=== PATIENT | male | born 1955 | race Two or more races ===

== ENCOUNTER 2023-06-13 10:14 | Inpatient (IN) | payer OTHER, MEDICAID ==
[~2023-06-13] VITALS: Ht 160 cm; Wt 57.0 kg
[2023-06-13 11:10] LABS: Basophils # (auto) 0 10 ^3/uL (0-0.2); Eosinophils # (auto) 0 10 ^3/uL (0-0.8); Hemoglobin 14.6 g/dL (13.5-17.5); Lymphocytes # (auto) 2.9 10 ^3/uL (0.4-5.4); White Blood Cell 11.2 10^3/uL (4.4-10.8)
[2023-06-13 11:13] LABS: Basophils % (auto) 0.3 % (0.0-2.0); Eosinophils % (auto) 0.4 % (0.0-7.0); Lymphocytes % (auto) 26.1 % (10.0-50.0); Mean Corpuscular Hemoglobin 23.4 pg (28.0-32.0); Mean Corpuscular Hgb Conc. 33.8 g/dL (32.0-36.0); Mean Corpuscular Volume 69.1 fL (80.0-100.0); Monocytes # (auto) 1.3 10 ^3/uL (0-1.3); Monocytes % (auto) 11.5 % (0.0-12.0); Neutrophils # (auto) 6.9 10 ^3/uL (1.6-8.6); Neutrophils % (auto) 61.7 % (37.0-80.0); Nucleated Red Blood Cells % 0.5 %; Red Blood Cells 6.22 10^6/uL (4.5-5.90); Red Cell Distribution Width 17.1 % (11.8-14.3)
[2023-06-13 11:26] LABS: Alanine Aminotransferase 43 U/L (7-40); Albumin 4.2 g/dL (3.2-4.8); Alkaline Phosphatase 45 U/L (46-116); Anion Gap 8 (5-15); Aspartate Aminotransferase 62 U/L (13-40); BUN/Creatinine Ratio 15.1 (10.0-20.0); Blood Urea Nitrogen 16 mg/dL (9-23); Carbon Dioxide 28 mmol/L (20-30); Chloride 101 mmol/L (98-107); Glucose 146 mg/dL (74-106); Potassium 3.6 mmol/L (3.5-5.1); Sodium 137 mmol/L (136-145)
[2023-06-13 11:27] LABS: Bilirubin, Total 1.2 mg/dL (0.2-1.0); Total Protein 7.5 g/dL (5.7-8.2)
[2023-06-13] MEDS ORDERED: cefTRIAXone 1GM/50ML D5W 50 ML IV ONE (12:45)
[2023-06-13] MEDS ORDERED: SODIUM CHLORIDE 0.9% 1,000 ML IV ONE (12:45)
[2023-06-13] MEDS ORDERED: metroNIDAZOLE 500MG/100ML 100 ML IV ONE (12:45)
[2023-06-13 12:47] LABS: Urine Bacteria NONE SEEN /hpf (None Seen); Urine Blood Negative /uL (Negative); Urine Clarity Clear (Clear); Urine Color Yellow (Yellow); Urine Mucus FEW (None Seen); Urine Protein, UAD Negative (Negative); Urine Urobilinogen Normal (Negative); Urine WBC <1 /hpf (0 - 3); Urine pH 5.5 (5.0-8.0)
[2023-06-13] MEDS ORDERED: ACETAMINOPHEN 325 MG TAB PO PRN (13:15)
[2023-06-13] MEDS ORDERED: PANTOPRAZOLE 40 MG/10 ML VIAL INJ IV ONE ×2 (13:15→21:15)
[2023-06-13] MEDS ORDERED: KETOROLAC TROMETH 30 MG/ML 1ML VIAL IV ONE (13:15)
[2023-06-13] MEDS ORDERED: SODIUM CHLORIDE 0.9% 2,000 ML IV ONE (13:15)
[2023-06-13] MEDS ORDERED: AMOX500C2 PO (13:18)
[2023-06-13] MEDS ORDERED: ATOR20TA50 PO (13:18)
[2023-06-13] MEDS ORDERED: ALLO100T PO (13:18)
[2023-06-13] MEDS ORDERED: HYDR25TA5 PO (13:18)
[2023-06-13] MEDS ORDERED: ACET-6 PO (13:18)
[2023-06-13] MEDS ORDERED: CETI-120 PO (13:18)
[2023-06-13] MEDS ORDERED: ZINC220T6 PO (13:18)
[2023-06-13] MEDS ORDERED: hydrALAZINE HCL 20 MG/ML VL IV PRN (13:30)
[2023-06-13] MEDS: SODIUM CHLORIDE 0.9% 1,000 ML IV SCH ×2 (13:38→15:41)
[2023-06-13 14:00] VITALS: PULSE 62; RESP 16; O2SAT 98
[2023-06-13 14:06] LABS: Lactic Acid w/Reflex 4.7 mmol/L (0.4-2.0)
[2023-06-13] MEDS ORDERED: cloNIDine HCL 0.1 MG TAB PO ONE (14:45)
[2023-06-13 21:14] VITALS: PULSE 52; RESP 19; O2SAT 97
[2023-06-13 22:40] VITALS: BP 150/71; PULSE 56; PULSE 59; RESP 18; RESP 20; O2SAT 98; O2SAT 99
[2023-06-13] MEDS: KETOROLAC TROMETH 30 MG/ML 1ML VIAL IV PRN (23:09)
[2023-06-13] MEDS: metroNIDAZOLE 500MG/100ML 100 ML IV SCH (23:09)
[2023-06-14 05:00] VITALS: BP 139/77; PULSE 55; RESP 18; TEMP 98.2; O2SAT 98
[2023-06-14] MEDS: metroNIDAZOLE 500MG/100ML 100 ML IV SCH ×3 (06:21→21:43)
[2023-06-14] MEDS: SODIUM CHLORIDE 0.9% 1,000 ML IV SCH ×3 (06:21→21:44)
[2023-06-14 07:09] LABS: Basophils # (auto) 0 10 ^3/uL (0-0.2); Basophils % (auto) 0.4 % (0.0-2.0); Eosinophils # (auto) 0.3 10 ^3/uL (0-0.8); Eosinophils % (auto) 2.6 % (0.0-7.0); Hemoglobin 12.9 g/dL (13.5-17.5); Lymphocytes # (auto) 2.7 10 ^3/uL (0.4-5.4); Mean Corpuscular Volume 69.5 fL (80.0-100.0); Monocytes % (auto) 10.3 % (0.0-12.0); Red Cell Distribution Width 16.8 % (11.8-14.3)
[2023-06-14 07:10] LABS: Hematocrit 37.9 % (41.0-53.0); Lymphocytes % (auto) 26.9 % (10.0-50.0); Mean Corpuscular Hemoglobin 23.6 pg (28.0-32.0); Neutrophils % (auto) 59.8 % (37.0-80.0); Red Blood Cells 5.46 10^6/uL (4.5-5.90)
[2023-06-14 07:20] LABS: Nucleated Red Blood Cells % 4.1 %
[2023-06-14 07:43] LABS: Alanine Aminotransferase 40 U/L (7-40); Albumin 3.6 g/dL (3.2-4.8); Alkaline Phosphatase 37 U/L (46-116); Anion Gap 8 (5-15); Aspartate Aminotransferase 53 U/L (13-40); BUN/Creatinine Ratio 14.7 (10.0-20.0); Blood Urea Nitrogen 14 mg/dL (9-23); Calcium 8.1 mg/dL (8.5-10.1); Carbon Dioxide 28 mmol/L (20-30); Chloride 102 mmol/L (98-107); Glucose 93 mg/dL (74-106); Potassium 3.5 mmol/L (3.5-5.1); Sodium 138 mmol/L (136-145)
[2023-06-14 07:44] LABS: Bilirubin, Total 2.2 mg/dL (0.2-1.0); Total Protein 6.2 g/dL (5.7-8.2)
[2023-06-14 09:00] VITALS: BP 140/84; PULSE 58; RESP 20; TEMP 97.7; O2SAT 98
[2023-06-14] MEDS ORDERED: cefTRIAXone 1GM/50ML D5W 50 ML IV SCH (09:00)
[2023-06-14] MEDS: PANTOPRAZOLE 40 MG/10 ML VIAL INJ IV SCH (09:20)
[2023-06-14] MEDS: ENOXAPARIN SOD 40 MG/0.4 ML SYRINGE SC SCH (09:21)
[2023-06-14 09:38] LABS: Hepatitis B Surface Antigen Negative (Negative)
[2023-06-14] MEDS ORDERED: ALLOPURINOL 100 MG TAB PO SCH (10:00)
[2023-06-14] MEDS ORDERED: ATORVASTATIN 20 MG TAB PO SCH (10:00)
[2023-06-14] MEDS ORDERED: hydroCHLOROthiazide 25 MG TAB PO SCH (10:00)
[2023-06-14] MEDS ORDERED: ZINC SULFATE 220mg CAP or TAB PO SCH (10:00)
[2023-06-14 10:01] LABS: Hepatitis C Antibody Negative (Negative)
[2023-06-14 12:53] VITALS: BP 139/78; PULSE 57; RESP 21; TEMP 98; O2SAT 98
[2023-06-14 17:23] VITALS: BP 148/74; PULSE 53; RESP 20; TEMP 98; O2SAT 98
[2023-06-14 20:00] VITALS: PULSE 60; O2SAT 97
[2023-06-14] MEDS: KETOROLAC TROMETH 30 MG/ML 1ML VIAL IV PRN ×2 (20:43→21:44)
[2023-06-14 22:00] VITALS: BP 139/78; PULSE 60; RESP 18; TEMP 98.4; O2SAT 97
[2023-06-15] MEDS: KETOROLAC TROMETH 30 MG/ML 1ML VIAL IV PRN ×2 (04:22→10:29)
[2023-06-15 05:00] VITALS: BP 145/73; PULSE 66; RESP 20; TEMP 98.2; O2SAT 99
[2023-06-15 06:27] LABS: Alanine Aminotransferase 27 U/L (7-40); Alkaline Phosphatase 38 U/L (46-116); Anion Gap 10 (5-15); Blood Urea Nitrogen 11 mg/dL (9-23); Calcium 8.3 mg/dL (8.5-10.1); Carbon Dioxide 24 mmol/L (20-30); Chloride 102 mmol/L (98-107); Glucose 75 mg/dL (74-106); LDL Cholesterol 45 mg/dL (< 100); Potassium 3.7 mmol/L (3.5-5.1); Sodium 136 mmol/L (136-145); Triglycerides 181 mg/dL (< 150)
[2023-06-15 06:28] LABS: Albumin 3.6 g/dL (3.2-4.8); Aspartate Aminotransferase 40 U/L (13-40); Bilirubin, Total 1.7 mg/dL (0.2-1.0); Cholesterol 98 mg/dL (< 200); HDL Cholesterol 23 mg/dL (40-59); Total Protein 6.3 g/dL (5.7-8.2)
[2023-06-15 06:29] LABS: Hemoglobin 11.8 g/dL (13.5-17.5); Lymphocytes # (auto) 2.2 10 ^3/uL (0.4-5.4); Red Cell Distribution Width 16.4 % (11.8-14.3); White Blood Cell 6.8 10^3/uL (4.4-10.8)
[2023-06-15 06:31] LABS: Basophils # (auto) 0.1 10 ^3/uL (0-0.2); Basophils % (auto) 0.9 % (0.0-2.0); Eosinophils # (auto) 0.5 10 ^3/uL (0-0.8); Eosinophils % (auto) 7.9 % (0.0-7.0); Hematocrit 35.5 % (41.0-53.0); Lymphocytes % (auto) 32.5 % (10.0-50.0); Mean Corpuscular Hemoglobin 23.4 pg (28.0-32.0); Mean Corpuscular Hgb Conc. 33.3 g/dL (32.0-36.0); Mean Corpuscular Volume 70.3 fL (80.0-100.0); Monocytes # (auto) 0.8 10 ^3/uL (0-1.3); Neutrophils # (auto) 3.2 10 ^3/uL (1.6-8.6); Neutrophils % (auto) 46.7 % (37.0-80.0); Nucleated Red Blood Cells % 0.6 %; Red Blood Cells 5.05 10^6/uL (4.5-5.90)
[2023-06-15 06:44] LABS: Magnesium 1.5 mg/dL (1.6-2.6)
[2023-06-15 06:52] LABS: Lipase 784 U/L (12-53)
[2023-06-15] MEDS: metroNIDAZOLE 500MG/100ML 100 ML IV SCH (06:53)
[2023-06-15] MEDS: SODIUM CHLORIDE 0.9% 1,000 ML IV SCH ×3 (06:54→22:05)
[2023-06-15 09:00] VITALS: BP 153/59; PULSE 57; RESP 17; TEMP 97.9; O2SAT 97
[2023-06-15] MEDS ORDERED: levoFLOXacin 500MG 100 ML IV SCH (10:00)
[2023-06-15] MEDS: PANTOPRAZOLE 40 MG/10 ML VIAL INJ IV SCH (10:28)
[2023-06-15] MEDS: MAGNESIUM SULFATE 1GM/100ML 100 ML IV SCH ×2 (10:29→12:00)
[2023-06-15] MEDS: ENOXAPARIN SOD 40 MG/0.4 ML SYRINGE SC SCH (10:29)
[2023-06-15 13:00] VITALS: BP 140/79; PULSE 57; RESP 18; TEMP 98.3; O2SAT 99
[2023-06-15] MEDS: FOLIC ACID 1 MG, MULTIPLE VITAMIN 10 ML, MAGNESIUM SULF SDV 50% 8 MEQ, THIAMINE INJ 100... INJ SCH ×5 (13:58)
[2023-06-15 17:00] VITALS: BP 150/80; PULSE 54; RESP 19; TEMP 98.2; O2SAT 99
[2023-06-15 20:00] VITALS: PULSE 52; RESP 18; O2SAT 98
[2023-06-15 22:00] VITALS: BP 141/73; PULSE 52; RESP 18; TEMP 98.1; O2SAT 98
[2023-06-16 05:00] VITALS: BP 132/75; PULSE 51; RESP 18; TEMP 98; O2SAT 98
[2023-06-16 09:00] VITALS: BP 154/102; PULSE 67; RESP 16; TEMP 98; O2SAT 98
[2023-06-16 09:10] LABS: Eosinophils # (auto) 0.5 10 ^3/uL (0-0.8); Lymphocytes % (auto) 35.2 % (10.0-50.0); Neutrophils % (auto) 49.1 % (37.0-80.0); Red Cell Distribution Width 16.6 % (11.8-14.3)
[2023-06-16 09:11] LABS: Basophils # (auto) 0.1 10 ^3/uL (0-0.2); Basophils % (auto) 0.8 % (0.0-2.0); Eosinophils % (auto) 6.9 % (0.0-7.0); Hematocrit 38.6 % (41.0-53.0); Lymphocytes # (auto) 2.4 10 ^3/uL (0.4-5.4); Mean Corpuscular Hemoglobin 23.7 pg (28.0-32.0); Mean Corpuscular Hgb Conc. 33.7 g/dL (32.0-36.0); Mean Corpuscular Volume 70.3 fL (80.0-100.0); Monocytes # (auto) 0.5 10 ^3/uL (0-1.3); Neutrophils # (auto) 3.4 10 ^3/uL (1.6-8.6); Nucleated Red Blood Cells % 0.4 %; Red Blood Cells 5.49 10^6/uL (4.5-5.90); White Blood Cell 6.8 10^3/uL (4.4-10.8)
[2023-06-16 09:33] LABS: Alanine Aminotransferase 33 U/L (7-40); Albumin 4.2 g/dL (3.2-4.8); Alkaline Phosphatase 51 U/L (46-116); Anion Gap 11 (5-15); Aspartate Aminotransferase 56 U/L (13-40); BUN/Creatinine Ratio 10.4 (10.0-20.0); Blood Urea Nitrogen 10 mg/dL (9-23); Calcium 8.7 mg/dL (8.7-10.4); Carbon Dioxide 21 mmol/L (20-30); Chloride 102 mmol/L (98-107); Glucose 71 mg/dL (74-106); Magnesium 1.9 mg/dL (1.6-2.6); Potassium 3.5 mmol/L (3.5-5.1); Sodium 134 mmol/L (136-145)
[2023-06-16 09:34] LABS: Bilirubin, Total 1.3 mg/dL (0.2-1.0); Total Protein 7.4 g/dL (5.7-8.2)
[2023-06-16 09:45] LABS: Lipase 891 U/L (12-53)
[2023-06-16] MEDS: ENOXAPARIN SOD 40 MG/0.4 ML SYRINGE SC SCH (11:11)
[2023-06-16] MEDS: SODIUM CHLORIDE 0.9% 1,000 ML IV SCH (11:25)
[2023-06-16] MEDS: FOLIC ACID 1 MG, MULTIPLE VITAMIN 10 ML, MAGNESIUM SULF SDV 50% 8 MEQ, THIAMINE INJ 100... INJ SCH ×5 (12:54)
[2023-06-16 13:00] VITALS: BP 145/71; PULSE 60; RESP 16; TEMP 98.2; O2SAT 93
[2023-06-16 17:03] VITALS: BP 145/88; PULSE 56; RESP 14; TEMP 98.4; O2SAT 99
[2023-06-16 20:00] VITALS: BP 147/69; PULSE 60; RESP 18; TEMP 97.9; O2SAT 94
[2023-06-16 22:00] VITALS: BP 147/69; PULSE 56; RESP 18; TEMP 97.9; O2SAT 94
[2023-06-17] MEDS: SODIUM CHLORIDE 0.9% 1,000 ML IV SCH (00:57)
[2023-06-17 05:00] VITALS: BP 142/70; PULSE 54; RESP 18; TEMP 97.9; O2SAT 95
[2023-06-17 06:47] LABS: Alanine Aminotransferase 33 U/L (7-40); Albumin 3.8 g/dL (3.2-4.8); Alkaline Phosphatase 47 U/L (46-116); Anion Gap 11 (5-15); Aspartate Aminotransferase 56 U/L (13-40); Calcium 8.6 mg/dL (8.7-10.4); Carbon Dioxide 19 mmol/L (20-30); Chloride 105 mmol/L (98-107); Glucose 56 mg/dL (74-106); Lipase > 700 U/L (12-53); Potassium 4.3 mmol/L (3.5-5.1); Sodium 135 mmol/L (136-145)
[2023-06-17 06:48] LABS: BUN/Creatinine Ratio 10.8 (10.0-20.0); Blood Urea Nitrogen 10 mg/dL (9-23); Magnesium 1.8 mg/dL (1.6-2.6)
[2023-06-17 06:50] LABS: Total Protein 6.6 g/dL (5.7-8.2)
[2023-06-17 09:00] VITALS: BP 142/78; PULSE 55; RESP 16; TEMP 97.6; O2SAT 99
[2023-06-17] MEDS: ENOXAPARIN SOD 40 MG/0.4 ML SYRINGE SC SCH (09:44)
[2023-06-17] MEDS: FOLIC ACID 1 MG, MULTIPLE VITAMIN 10 ML, MAGNESIUM SULF SDV 50% 8 MEQ, THIAMINE INJ 100... INJ SCH ×5 (12:00)
== END 2023-06-17 13:30 | disposition home or self-care (01) | DRG 440 ==
LOC: ER 10:14 → OVERFLOW 13:15 → CENTRAL 22:18
PROVIDERS: ADMIT Nurse Practitioner Family; ATTEND Internal Medicine Geriatric Medicine
DX: K85.20 Alcohol induced acute pancreatitis without necrosis or infection (principal); R74.01 Elevation of levels of liver transaminase levels; I10 Essential (primary) hypertension; R73.9 Hyperglycemia, unspecified; E78.5 Hyperlipidemia, unspecified; M10.9 Gout, unspecified; E83.42 Hypomagnesemia; K59.00 Constipation, unspecified; F10.20 Alcohol dependence, uncomplicated; Y90.9 Presence of alcohol in blood, level not specified
CPT/HCPCS: 36415; 74176; 76705; 80053; 80061; 81001; 83036; 83605; 83690; 83735; 84484; 85025; 86803; 87040; 87340; 96365; 96368; 96375; C9113; G0378; J0696; J1885; J1956; J3490

== ENCOUNTER 2024-02-25 13:02 | Emergency (ER) | payer OTHER, MEDICAID ==
[~2024-02-25] VITALS: Ht 160 cm; Wt 61.6 kg
[~2024-02-25 13:02] MED LIST: ACET-6 PO; ALLO100T PO; ATOR20TA50 PO; CETI-120 PO; HYDR25TA5 PO; ZINC220T6 PO
[2024-02-25] MEDS ORDERED: cefTRIAXone W LIDOCAINE 1 GM IM IM ONE (13:45)
[2024-02-25 14:19] LABS: Eosinophils % (auto) 2.5 % (0.0-7.0); Hemoglobin 12.1 g/dL (13.5-17.5); Monocytes # (auto) 1.1 10 ^3/uL (0-1.3)
[2024-02-25 14:21] LABS: Basophils # (auto) 0 10 ^3/uL (0-0.2); Basophils % (auto) 0.3 % (0.0-2.0); Eosinophils # (auto) 0.4 10 ^3/uL (0-0.8); Hematocrit 36.7 % (41.0-53.0); Lymphocytes # (auto) 2.3 10 ^3/uL (0.4-5.4); Lymphocytes % (auto) 16.2 % (10.0-50.0); Mean Corpuscular Hemoglobin 21.8 pg (28.0-32.0); Mean Corpuscular Hgb Conc. 33.1 g/dL (32.0-36.0); Mean Corpuscular Volume 65.8 fL (80.0-100.0); Monocytes % (auto) 7.9 % (0.0-12.0); Neutrophils # (auto) 10.3 10 ^3/uL (1.6-8.6); Neutrophils % (auto) 73.1 % (37.0-80.0); Nucleated Red Blood Cells % 0.2 %; Red Blood Cells 5.58 10^6/uL (4.5-5.90); Red Cell Distribution Width 15.7 % (11.8-14.3)
[2024-02-25 14:22] VITALS: PULSE 72; RESP 16; O2SAT 96
[2024-02-25 14:39] LABS: Alanine Aminotransferase 48 U/L (7-40); Albumin 4.5 g/dL (3.2-4.8); Alkaline Phosphatase 56 U/L (46-116); Amylase 365 U/L (30-118); Anion Gap 7 (5-15); Aspartate Aminotransferase 33 U/L (13-40); BUN/Creatinine Ratio 9.6 (10.0-20.0); Bilirubin, Total 1.7 mg/dL (0.2-1.0); Blood Urea Nitrogen 11 mg/dL (9-23); Calcium 9.9 mg/dL (8.7-10.4); Carbon Dioxide 25 mmol/L (20-30); Chloride 106 mmol/L (98-107); Glucose 113 mg/dL (74-106); Lipase 25 U/L (12-53); Potassium 4.7 mmol/L (3.5-5.1); Sodium 138 mmol/L (136-145); Total Protein 7.7 g/dL (5.7-8.2)
[2024-02-25] MEDS: IOHEXOL 300 MG/ML 100ML BOTTLE IJ ONE (15:22)
[2024-02-25] MEDS: cefTRIAXone 1GM/50ML D5W 50 ML IV ONE (15:23)
[2024-02-25] MEDS: levoFLOXacin 500MG 100 ML IV ONE (17:11)
[2024-02-25] MEDS: ONDANSETRON HCL 4 MG/2 ML VIAL IV ONE ×2 (17:26→19:13)
[2024-02-25] MEDS: MORPHINE SULFATE INJ 2 MG/ml SYRG IV ONE (17:27)
[2024-02-25 18:20] VITALS: PULSE 67; RESP 16; O2SAT 98
[2024-02-25] MEDS: CLINDAMYCIN 900MG IV 50 ML IV ONE (19:01)
[2024-02-25] MEDS: HYDROmorphone HCL 2 MG/ML VL/or syr IV ONE (19:09)
[2024-02-25 21:37] VITALS: BP 152/82; PULSE 63; RESP 19; TEMP 98.4; O2SAT 92
== END 2024-02-25 21:50 | disposition short-term general hospital (02) ==
LOC: ER 13:02
DX: D49.0 Neoplasm of unspecified behavior of digestive system (principal); L02.91 Cutaneous abscess, unspecified; I10 Essential (primary) hypertension
CPT/HCPCS: 36415; 70491; 80053; 82150; 83690; 85025; 96365; 96367; 96375; 99285; J0696; J1170; J1956; J2270; J2405; J3490; Q9967

== ENCOUNTER 2025-07-01 14:28 | Inpatient (IN) | payer MEDICARE, OTHER ==
[~2025-07-01] VITALS: Ht 167.6 cm; Wt 45.9 kg
[2025-07-01] MEDS: ONDANSETRON HCL 4 MG/2 ML VIAL ONE (15:59)
[2025-07-01] MEDS: fentaNYL CITRATE 100 MCG/2 ML VL ONE (16:00)
[2025-07-01] MEDS: ONDANSETRON HCL 4 MG/2 ML VIAL IV ONE (16:01)
[2025-07-01] MEDS: fentaNYL CITRATE 100 MCG/2 ML VL IV ONE (16:02)
[2025-07-01] MEDS: SODIUM CHLORIDE 0.9% 1,000 ML IV ONE (16:03)
[2025-07-01 16:13] LABS: Hematocrit 38.0 % (41.0-53.0); Mean Corpuscular Volume 63.5 fL (80.0-100.0)
[2025-07-01 16:14] LABS: Hemoglobin 12.4 g/dL (13.5-17.5); Mean Corpuscular Hemoglobin 20.8 pg (28.0-32.0); Nucleated Red Blood Cells % 0.3 %
[2025-07-01 16:14] LABS: Urine Protein, UAD 1+ (Negative)
[2025-07-01 16:27] LABS: Alanine Aminotransferase 32 U/L (7-40); Albumin 4.7 g/dL (3.2-4.8); Alkaline Phosphatase 101 U/L (46-116); Anion Gap 11 (5-15); BUN/Creatinine Ratio 8.8 (10.0-20.0); Calcium 10.2 mg/dL (8.7-10.4); Carbon Dioxide 27 mmol/L (20-31); Chloride 104 mmol/L (98-107); Potassium 4.4 mmol/L (3.5-5.1); Sodium 142 mmol/L (136-145)
[2025-07-01 16:28] LABS: Bilirubin, Total 0.6 mg/dL (0.2-1.0)
[2025-07-01 16:39] LABS: Blood Urea Nitrogen 9 mg/dL (9-23); Glucose 167 mg/dL (74-106); Lipase 86 U/L (12-53); Total Protein 8.3 g/dL (5.7-8.2)
--- NOTE | 2025-07-01 17:09 | ED.PDOC ---
GI ASSESSMENT HPI Comments 70 y/o M, presents to the ED for CC of abdominal pain. Patient states, he has been experiencing diffuse abdominal pain with associated diarrhea [id number]. Patient reports, that he recently traveled to [facility] and just now returned to the [facility]. Patient denies nausea, vomiting, or fever. Chief Complaint: Abdominal Pain Time Seen by MD: 16:10 Reviewed Notes: Nurses Notes, Medications, Allergies Allergies: Coded Allergies: NO KNOWN ALLERGIES (Unverified , 07/01/25) Information Source: Patient, Relative (Child) Mode of Arrival: Ambulatory Timing: Months Duration: Since onset Prehospital treatment: None Stool: Watery Severity: Moderate Recent: Travel Recent Hx of: None Pain Location: Diffuse Modifying Factors: Nothing Associated sign and symptoms: Diarrhea, Abdominal Pain Past Medical History PAST MEDICAL HISTORY: Denies Surgical History: Denies all surgeries Family History Family History: Unknown Social History Smoker: Non-Smoker Alcohol: Denies ETOH Use Drugs: Denies Drug Use Lives In: Home Constitutional: denies: chills, diaphoresis, fatigue, fever, malaise, sweats, weakness, others EENTM: denies: blurred vision, double vision, ear bleeding, ear discharge, ear drainage, ear pain, ear ringing, eye pain, eye redness, hearing loss, mouth pain, mouth swelling, nasal discharge, nose bleeding, nose congestion, nose pain, photophobia, tearing, throat pain, throat swelling, voice changes, others Respiratory: denies: cough, hemoptysis, orthopnea, SOB at rest, shortness of breath, SOB with excertion, stridor, wheezing, others Cardiovascular: denies: chest pain, dizzy spells, diaphoresis, Dyspnea on exertion, edema, irregular heart beat, left arm pain, lightheadedness, palpitations, PND, syncope, others Gastrointestinal: reports: abdominal pain, diarrhea; denies: abdomen distended, blood streaked bowels, constipated, dysphagia, difficulty swallowing, hematemesis, melena, nausea, poor appetite, poor fluid intake, rectal bleeding, rectal pain, vomiting, others Genitourinary: denies: burning, dysuria, flank pain, frequency, hematuria, incontinence, penile discharge, penile sore, pain, testicle pain, testicle swelling, urgency, others Neurological: denies: dizziness, fainting, headache, left sided numbness, left sided weakness, numbness, paresthesia, pre-existing deficit, right sided numbness, right sided weakness, seizure, speech problems, tingling, tremors, weakness, others Musculoskeletal: denies: back pain, gout, joint pain, joint swelling, muscle pain, muscle stiffness, neck pain, others Integumetry: denies: bruises, change in color, change in hair/nails, dryness, laceration, lesions, lumps, rash, wounds, others Allergic/Immunocompromised: denies: Difficulty Healing, Frequent Infections, Hives, Itching, others Hematologic/Lymphatic: denies: anemia, blood clots, easy bleeding, easy bruising, swollen glands, others Endocrine: denies: excessive hunger, excessive sweating, excessive thirst, excessive urination, flushing, intolerance to cold, intolerance to heat, unexplained weight gain, unexplained weight loss, others Psychiatric: denies: anxiety, bipolar disorder, depression, hopeless, panic disorder, schizophrenia, sleepless, suicidal, others All Other Systems: Reviewed and Negative Physical Exam General Appearance: No Apparent Distress, Normal HEENT: Normal ENT Inspection, Pharynx Normal Neck: Full Range of Motion, Non-Tender, Normal, Normal Inspection Respiratory: Chest Non-Tender, Lungs Clear, No Accessory Muscle Use, No Respiratory Distress, Normal Breath Sounds Cardiovascular: No Edema, No Murmur, No Gallop, Normal Peripheral Pulses, Regular Rate/Rhythm Breast Exam: Deferred Gastrointestinal: Diffuse, No Organomegaly, No Pulsatile Mass, Normal Bowel Sounds, Soft, Tenderness Genitalia: Deferred Pelvic: Deferred Rectal: Deferred Extremities: No calf tenderness, Normal capillary refill, Normal inspection, Normal range of motion, Non-tender, No pedal edema Musculoskeletal : Apperance: Normal Neurologic: Alert, chief technologist II-XII nml as Tested, No Motor Deficits, Normal Affect, Normal Mood, No Sensory Deficits Cerebellar Function: Normal Reflexes: Normal Skin: Dry, Normal Color, Warm Lymphatic: No Adenopathy Was a procedure done? Was a procedure done?: No GI differential Dx Differential Diagnosis: Cholangitis, Gastritis/PUD, Gastroenteritis, Food Poisoning, Bacterial, Viral X-Ray, Labs, Meds, VS Vital Signs Date Time Temp Pulse Resp B/P (MAP) Pulse Ox O2 Delivery O2 Flow Rate FiO2 07/01/25 16:02 135/87 07/01/25 15:12 Room Air* 0 21 07/01/25 15:10 97.5 70 16 117/79 (92) 95 97.5 07/01/25 14:30 97.7 88 18 120/84 99 97.7 Lab Test 07/01/25 16:02 07/01/25 15:45 Range/Units White Blood Count 9.8 4.4-10.8 10^3/uL Red Blood Count 5.98 H 4.5-5.90 10^6/uL Hemoglobin 12.4 L 13.5-17.5 g/dL Hematocrit 38.0 L 41.0-53.0 % Mean Corpuscular Volume 63.5 L 80.0-100.0 fL Mean Corpuscular Hemoglobin 20.8 L 28.0-32.0 pg Mean Corpuscular Hemoglobin Concent 32.8 32.0-36.0 g/dL Red Cell Distribution Width 17.2 H 11.8-14.3 % Platelet Count 254 140-450 10^3/uL Mean Platelet Volume 8.5 6.9-10.8 fL Neutrophils (%) (Auto) 69.1 37.0-80.0 % Lymphocytes (%) (Auto) 20.4 10.0-50.0 % Monocytes (%) (Auto) 5.4 0.0-12.0 % Eosinophils (%) (Auto) 4.7 0.0-7.0 % Basophils (%) (Auto) 0.4 0.0-2.0 % Neutrophils # (Auto) 6.8 1.6-8.6 10 ^3/uL Lymphocytes # (Auto) 2.0 0.4-5.4 10 ^3/uL Monocytes # (Auto) 0.5 0-1.3 10 ^3/uL Eosinophils # (Auto) 0.5 0-0.8 10 ^3/uL Basophils # (Auto) 0 0-0.2 10 ^3/uL Nucleated Red Blood Cells 0.3 % Sodium Level 142 136-145 mmol/L Potassium Level 4.4 3.5-5.1 mmol/L Chloride Level 104 98-107 mmol/L Carbon Dioxide Level 27 20-31 mmol/L Anion Gap 11 5-15 Blood Urea Nitrogen 9 9-23 mg/dL Creatinine 1.02 0.700-1.30 mg/dL Glomerular Filtration Rate Calc 80 >90 mL/min BUN/Creatinine Ratio 8.8 L 10.0-20.0 Serum Glucose 167 H 74-106 mg/dL Calcium Level 10.2 8.7-10.4 mg/dL Total Bilirubin 0.6 0.2-1.0 mg/dL Aspartate Amino Transferase (AST) 51 H 13-40 U/L Alanine Aminotransferase (ALT) 32 7-40 U/L Alkaline Phosphatase 101 46-116 U/L Total Protein 8.3 H 5.7-8.2 g/dL Albumin 4.7 3.2-4.8 g/dL Lipase 86 H 12-53 U/L Urine Color Dark-yellow Yellow Urine Clarity Turbid H Clear Urine pH 6.0 5.0-9.0 Urine Specific [place] 1.037 H 1.001-1.035 Urine Protein 1+ H Negative Urine Ketones Trace Negative Urine Blood Negative Negative /uL Urine Nitrite Negative Negative Urine Bilirubin 1+ Negative Urine Urobilinogen 3 H Negative mg/dL Urine Leukocyte Esterase Negative Negative /uL Urine RBC 2 0 - 3 /hpf Urine Microscopic WBC 3 0-3 /HPF Urine Squamous Epithelial Cells Few <5 /hpf Urine Bacteria None seen None Seen /hpf Urine Hyaline Casts Many 0 - 2 /lpf Urine Mucus Moderate None Seen Urine Glucose Trace Normal mg/dL Current Medications Medications (Trade) Dose Ordered Sig/Valery Route Start Time Stop Time Status Last Admin Ondansetron HCl (Zofran) 4 mg ONCE ONCE IV 07/01/25 15:45 07/01/25 15:47 DC 07/01/25 16:01 Fentanyl Citrate 12.5 mcg ONCE ONCE IV 07/01/25 15:45 07/01/25 15:47 DC 07/01/25 16:02 Sodium Chloride 1,000 ml @ 100 mls/hr Q10H ONCE IV 07/01/25 15:45 07/02/25 01:44 07/01/25 16:[address] [address] Ph: [phone] DIAGNOSTIC IMAGING Diagnostic Imaging Report : [id number] Signed PATIENT: GERTRUDE SLADE ACCT: [id number] UNIT: [id number] : 1955 LOC: ER ROOM / BED: / AGE / SEX: 70 / M ADM STATUS: REG ER SERVICE [id number] ORDERING PHYSICIAN: ALON HER MD PROCEDURE(s): ABPL - CT AB PEL WO CON-NO ORAL OR IV REASON: PAIN ORDER NUMBER(s): [id number], ACCESSION NUMBER(s): [id number] Exam: CT CT AB PEL WO CON-NO ORAL OR IV History: PAIN Comparison Study: CT CT AB PEL WO CON-NO ORAL OR IV on DOS: 06/13/23 Technique: Multidetector spiral CT of the abdomen was performed from lung bases to pubic symphysis. Imaging was performed without IV contrast. Axial, coronal and sagittal multiplanar reformats were obtained from the axial data set by the technologist. Radiation Dose : 1. Abdomen/Pelvis: CTDIvol 5.07 mGy, DLP 277.46 mGy*cm. Findings: Evaluation of solid organs is limited due to lack of intravenous contrast use. Lung Bases: No acute or significant lung base finding. Normal heart size. No pleural or pericardial effusion. Liver: The liver is normal in size. No focal lesions. Gallbladder and Biliary Tree: Unremarkable Spleen: Unremarkable Pancreas: Prominence of the pancreas with adjacent fat stranding and phlegmon, compatible with acute pancreatitis. Large multiloculated fluid collection is seen adjacent to the pancreatic tail measuring up to 6.6 cm. Adrenal Glands: Unremarkable Kidneys: Kidneys are grossly normal without calculi or hydronephrosis. Bladder: Grossly unremarkable for degree of distention. Bowel: The stomach is grossly normal in appearance. Small bowel and colon are normal in caliber and distribution. The appendix is not visualized; however, no secondary findings of acute appendicitis identified. Ascites: Small volume abdominopelvic ascites. Lymphadenopathy: No mesenteric, retroperitoneal or periportal lymphadenopathy. Abdominal Wall and Mesentery: Unremarkable. Vasculature: The visualized abdominal aorta is normal in size and caliber. Evaluation of abdominal and pelvic vessels is limited due to lack of intravenous contrast. Pelvic Organs: Unremarkable Musculoskeletal: No aggressive focal bony lesions, acute fractures or dislocation. IMPRESSION: 1. Findings are compatible with acute pancreatitis with large multiloculated fluid collection adjacent to the pancreatic tail measuring up to 6.6 cm. Consider contrast-enhanced abdominal CT for further evaluation. 2. Small volume abdominopelvic ascites. Radiation optimization: All CT scans at this facility use at least one of these dose optimization techniques: automated exposure control mA and/or kV adjustment per patient size (includes targeted exams where dose is matched to clinical indication) or iterative reconstruction. ATED BY: PENNIE WARD MD DICTATED DATE/TIME: 07/01/251711 SIGNED BY: PENNIE WARD MD SIGNED DATE/TIME: 07/01/251711 CC: Time of 1ST Reevaluation: 16:40 Reevaluation 1ST: Unchanged Patient Education/Counseling: Diagnosis, Treatment Family Education/Counseling: Diagnosis, Treatment Comments This is a patient who drinks alcohol and smokes. He presents with abdominal pain. He has a acute pancreatitis. He will be admitted to the hospital for further treatment. Patient also has evidence of ascites and possibly a pancreatic cyst or pseudocyst. However he is hemodynamically stable he is not septic. SEPSIS Sepsis Screen Date sepsis recognized/suspect: Jul 01, 2025 Time Sepsis recognized/suspect: 1430 Recent Procedure: No On Antibiotic Therapy: No Respiratory Rate >20: No Heart Rate >90: No Temp<36 C (96.8 F) or >38.3 C: No SBP <90 or MAP <65 mmHG: No New Acute Mental Status Change: No Is the patient on CPAP, BIPAP,: No Physician Orders Ct Ab Pel Wo Con-No Oral Or Iv (07/01/25 15:45) Sodium Chloride 0.9% (07/01/25 15:45) Vital Signs Date Time Temp Pulse Resp B/P (MAP) Pulse Ox O2 Delivery O2 Flow Rate FiO2 07/01/25 16:02 135/87 07/01/25 15:12 Room Air* 0 21 07/01/25 15:10 97.5 70 16 117/79 (92) 95 97.5 07/01/25 14:30 97.7 88 18 120/84 99 97.7 Laboratory Tests Test 07/01/25 16:02 White Blood Count 9.8 10^3/uL (4.4-10.8) Medications Medications Dose Ordered Sig/Valery Route Start Time Stop Time Status Last Admin Dose Admin Fentanyl Citrate 12.5 mcg ONCE ONCE IV 07/01/25 15:45 07/01/25 15:47 DC 07/01/25 16:02 Ondansetron HCl 4 mg ONCE ONCE IV 07/01/25 15:45 07/01/25 15:47 DC 07/01/25 16:01 Sodium Chloride 1,000 ml @ 100 mls/hr Q10H ONCE IV 07/01/25 15:45 07/02/25 01:44 07/01/25 16:03 Departure 1 Departure Time of Disposition: 17:49 Impression: Primary Impression: Acute pancreatitis Additional Impressions: Ascites Pancreatic cyst Disposition: ADMITTED INPATIENT Admit to: Med Surg Condition: Serious Discharged With: Self, Relative Critical Care Note Critical Care Time?: Yes (45 min-critical care time only) Critical care comment: Total critical care time: Approximately 45minutes Due to a high probability of clinically significant, life threatening deterioration, the patient required my highest level of preparedness to intervene emergently and I personally spent this critical care time directly and personally managing the patient. This critical care time included obtaining a history; examining the patient; pulse oximetry; ordering and review of studies; arranging urgent treatment with development of a management plan; evaluation of patient's response to treatment; frequent reassessment; and, discussions with other providers. This critical care time was performed to assess and manage the high probability of imminent, life-threatening deterioration that could result in multi-organ failure. It was exclusive of separately billable procedures and treating other patients. Stability Stability form required: No Heart Score Heart Score: Heart Score Response (Comments) Value History N/A 0 EKG N/A 0 Age N/A 0 Risk Factors N/A 0 Troponin N/A 0 Total 0 I personally scribed for ALON HER MD ([email or web address]) on 07/01/25 at 17:09. Electronically submitted by Silke Price ([email or web address]). I personally scribed for ALON HER MD ([email or web address]) on 07/01/25 at 17:12. Electronically submitted by Silke Price ([email or web address]). I personally scribed for ALON HER MD ([email or web address]) on 07/01/25 at 17:24. Electronically submitted by Silke Price ([email or web address]). ALON HER MD Jul 01, 2025 17:09
--- NOTE | 2025-07-01 17:14 | DVH ---
Exam: CT CT AB PEL WO CON-NO ORAL OR IV History: PAIN Comparison Study: CT CT AB PEL WO CON-NO ORAL OR IV on DOS: 06/13/23 Technique: Multidetector spiral CT of the abdomen was performed from lung bases to pubic symphysis. Imaging was performed without IV contrast. Axial, coronal and sagittal multiplanar reformats were obtained from the axial data set by the technologist. Radiation Dose : 1. Abdomen/Pelvis: CTDIvol 5.07 mGy, DLP 277.46 mGy*cm. Findings: Evaluation of solid organs is limited due to lack of intravenous contrast use. Lung Bases: No acute or significant lung base finding. Normal heart size. No pleural or pericardial effusion. Liver: The liver is normal in size. No focal lesions. Gallbladder and Biliary Tree: Unremarkable Spleen: Unremarkable Pancreas: Prominence of the pancreas with adjacent fat stranding and phlegmon, compatible with acute pancreatitis. Large multiloculated fluid collection is seen adjacent to the pancreatic tail measuring up to 6.6 cm. Adrenal Glands: Unremarkable Kidneys: Kidneys are grossly normal without calculi or hydronephrosis. Bladder: Grossly unremarkable for degree of distention. Bowel: The stomach is grossly normal in appearance. Small bowel and colon are normal in caliber and distribution. The appendix is not visualized; however, no secondary findings of acute appendicitis identified. Ascites: Small volume abdominopelvic ascites. Lymphadenopathy: No mesenteric, retroperitoneal or periportal lymphadenopathy. Abdominal Wall and Mesentery: Unremarkable. Vasculature: The visualized abdominal aorta is normal in size and caliber. Evaluation of abdominal and pelvic vessels is limited due to lack of intravenous contrast. Pelvic Organs: Unremarkable Musculoskeletal: No aggressive focal bony lesions, acute fractures or dislocation. IMPRESSION: 1. Findings are compatible with acute pancreatitis with large multiloculated fluid collection adjacent to the pancreatic tail measuring up to 6.6 cm. Consider contrast-enhanced abdominal CT for further evaluation. 2. Small volume abdominopelvic ascites. Radiation optimization: All CT scans at this facility use at least one of these dose optimization techniques: automated exposure control mA and/or kV adjustment per patient size (includes targeted exams where dose is matched to clinical indication) or iterative reconstruction.
[2025-07-01] MEDS ORDERED: MORPHINE SULFATE INJ 2 MG/ml SYRG IV PRN (18:15)
[2025-07-01] MEDS ORDERED: NITROGLYCERIN 0.4 MG SL TAB SL PRN (18:15)
--- NOTE | 2025-07-01 18:20 | DVHHP2 ---
History of Present Illness History of Present Illness Moses Garcia is a 70-year-old male with a history of morbid obesity, anemia, hyperlipidemia, and gout presenting to the emergency room with acute abdominal pain and diarrhea for approximately one month following recent travel to [facility]. Review of Systems Constitutional: No: Fever, Chills, Sweats, Weakness, Malaise, Other Eyes: No: Pain, Vision change, Conjunctivae inflammation, Eyelid inflammation, Other, Redness Respiratory: No: Cough, Dry, Shortness of breath, SOB with excertion, Wheezing, Hemoptysis, Pleuritic Pain, Sputum, Wheezing, Other Gastrointestinal: Nausea, Vomiting, Abdominal Pain Genitourinary: No Dysuria, No Frequency, No Incontinence, No Hematuria, No Retention, No Other Skin: No: Rash, Lesions, Jaundice, Bruising, Other Allergies: Coded Allergies: NO KNOWN ALLERGIES (Unverified , 07/01/25) Medications Current Medications Medications Dose Ordered Sig/Valery Route Start Time Stop Time Status Last Admin Dose Admin Sodium Chloride 1,000 ml @ 120 mls/hr Q8H20M IV 07/01/25 18:15 UNV Acetaminophen/ Hydrocodone Bitart 1 tab Q4HP PRN PO 07/01/25 18:15 UNV Enoxaparin Sodium 40 mg DAILY SC 07/02/25 10:00 UNV Acetaminophen 650 mg Q6HP PRN PO 07/01/25 18:15 UNV Nitroglycerin 0.4 mg Q5MINP PRN SL 07/01/25 18:15 UNV Morphine Sulfate 2 mg Q30M PRN IV 07/01/25 18:15 UNV Morphine Sulfate 4 mg Q4HPRN PRN IV 07/01/25 18:15 UNV Exam Vital Signs Vital Signs Date Time Temp Pulse Resp B/P (MAP) Pulse Ox O2 Delivery O2 Flow Rate FiO2 07/01/25 16:02 135/87 07/01/25 15:12 Room Air* 0 21 07/01/25 15:10 97.5 70 16 95 97.5 General Appearance: Alert, Oriented X3 Respiratory: Clear to auscultation, Normal air movement Cardiovascular: Regular rate, Normal S1, Normal S2, No murmurs Abdominal: Normal bowel sounds, Other (tenderness with palpation ) Labs/Xrays Labs Test 07/01/25 16:02 07/01/25 15:45 Range/Units White Blood Count 9.8 4.4-10.8 10^3/uL Red Blood Count 5.98 H 4.5-5.90 10^6/uL Hemoglobin 12.4 L 13.5-17.5 g/dL Hematocrit 38.0 L 41.0-53.0 % Mean Corpuscular Volume 63.5 L 80.0-100.0 fL Mean Corpuscular Hemoglobin 20.8 L 28.0-32.0 pg Mean Corpuscular Hemoglobin Concent 32.8 32.0-36.0 g/dL Red Cell Distribution Width 17.2 H 11.8-14.3 % Platelet Count 254 140-450 10^3/uL Mean Platelet Volume 8.5 6.9-10.8 fL Neutrophils (%) (Auto) 69.1 37.0-80.0 % Lymphocytes (%) (Auto) 20.4 10.0-50.0 % Monocytes (%) (Auto) 5.4 0.0-12.0 % Eosinophils (%) (Auto) 4.7 0.0-7.0 % Basophils (%) (Auto) 0.4 0.0-2.0 % Neutrophils # (Auto) 6.8 1.6-8.6 10 ^3/uL Lymphocytes # (Auto) 2.0 0.4-5.4 10 ^3/uL Monocytes # (Auto) 0.5 0-1.3 10 ^3/uL Eosinophils # (Auto) 0.5 0-0.8 10 ^3/uL Basophils # (Auto) 0 0-0.2 10 ^3/uL Nucleated Red Blood Cells 0.3 % Sodium Level 142 136-145 mmol/L Potassium Level 4.4 3.5-5.1 mmol/L Chloride Level 104 98-107 mmol/L Carbon Dioxide Level 27 20-31 mmol/L Anion Gap 11 5-15 Blood Urea Nitrogen 9 9-23 mg/dL Creatinine 1.02 0.700-1.30 mg/dL Glomerular Filtration Rate Calc 80 >90 mL/min BUN/Creatinine Ratio 8.8 L 10.0-20.0 Serum Glucose 167 H 74-106 mg/dL Calcium Level 10.2 8.7-10.4 mg/dL Total Bilirubin 0.6 0.2-1.0 mg/dL Aspartate Amino Transferase (AST) 51 H 13-40 U/L Alanine Aminotransferase (ALT) 32 7-40 U/L Alkaline Phosphatase 101 46-116 U/L Total Protein 8.3 H 5.7-8.2 g/dL Albumin 4.7 3.2-4.8 g/dL Lipase 86 H 12-53 U/L Urine Color Dark-yellow Yellow Urine Clarity Turbid H Clear Urine pH 6.0 5.0-9.0 Urine Specific [place] 1.037 H 1.001-1.035 Urine Protein 1+ H Negative Urine Ketones Trace Negative Urine Blood Negative Negative /uL Urine Nitrite Negative Negative Urine Bilirubin 1+ Negative Urine Urobilinogen 3 H Negative mg/dL Urine Leukocyte Esterase Negative Negative /uL Urine RBC 2 0 - 3 /hpf Urine Microscopic WBC 3 0-3 /HPF Urine Squamous Epithelial Cells Few <5 /hpf Urine Bacteria None seen None Seen /hpf Urine Hyaline Casts Many 0 - 2 /lpf Urine Mucus Moderate None Seen Urine Glucose Trace Normal mg/dL SEPSIS Sepsis Screen Date sepsis recognized/suspect: Jul 01, 2025 Time Sepsis recognized/suspect: 1429 Recent Procedure: No On Antibiotic Therapy: No Respiratory Rate >20: No Heart Rate >90: No Temp<36 C (96.8 F) or >38.3 C: No SBP <90 or MAP <65 mmHG: No New Acute Mental Status Change: No Is the patient on CPAP, BIPAP,: No Physician Orders Ct Ab Pel Wo Con-No Oral Or Iv (07/01/25 15:45) Sodium Chloride 0.9% (07/01/25 15:45) Amylase (07/01/25 18:15) Admit (07/01/25 18:15) Allergies (07/01/25 18:15) Sodium Chloride 0.9% (07/01/25 18:15) Hydrocodone-Acet 5/325mg Tab ([place] 5/32 (07/01/25 18:15) Enoxaparin Sodium (Lovenox) (07/02/25 10:00) Npo (Nothing By Mouth) Diet (07/01/25 Dinner) Condition: Stable (07/01/25 18:15) Acetaminophen Tablet (Tylenol Tablet) (07/01/25 18:15) Nitroglycerin Sublingual (Ntrostat Subli (07/01/25 18:15) Morphine Sulfate Injection (07/01/25 18:15) Stat Ekg For Chest Pain (07/01/25 18:15) Notify Md Of Changes From Base (07/01/25 18:15) Transit Worker For 24 Hours (07/01/25 18:15) Emergency Dysrhythmia Protocol (07/01/25 18:15) Rhythm Strips Once Every Shift (07/01/25 18:15) Oxygen By Nasal Cannula (07/01/25 18:15) Morphine Sulfate Injection (07/01/25 18:15) *Consult Dr. Margaret Bhandari (07/01/25 18:15) Hemoglobin A1c (07/01/25 18:18) Vital Signs Date Time Temp Pulse Resp B/P (MAP) Pulse Ox O2 Delivery O2 Flow Rate FiO2 07/01/25 16:02 135/87 07/01/25 15:12 Room Air* 0 21 07/01/25 15:10 97.5 70 16 117/79 (92) 95 97.5 07/01/25 14:30 97.7 88 18 120/84 99 97.7 Laboratory Tests Test 07/01/25 16:02 White Blood Count 9.8 10^3/uL (4.4-10.8) Medications Medications Dose Ordered Sig/Valery Route Start Time Stop Time Status Last Admin Dose Admin Fentanyl Citrate 12.5 mcg ONCE ONCE IV 07/01/25 15:45 07/01/25 15:47 DC 07/01/25 16:02 12.5 MCG Ondansetron HCl 4 mg ONCE ONCE IV 07/01/25 15:45 07/01/25 15:47 DC 07/01/25 16:01 4 MG Sodium Chloride 1,000 ml @ 100 mls/hr Q10H ONCE IV 07/01/25 15:45 07/02/25 01:44 07/01/25 16:03 100 MLS/HR Assessment/Plan Assessment/Plan Acute Pancreatitis Assessment: Patient presents with acute abdominal pain in the setting of recent travel to [facility]. Clinical presentation and evaluation support diagnosis of acute pancreatitis requiring inpatient management. Plan: - Admit to hospital - IV fluid administration - GI consultation - Pain medications as needed - NPO status - PPI therapy - DVT prophylaxis Morbid Obesity Assessment: Patient has morbid obesity requiring lifestyle modification interventions. Plan: - Advised to exercise Anemia Assessment: Patient has anemia requiring monitoring. Plan: - Monitor Hyperlipidemia Assessment: Patient has hyperlipidemia requiring continued statin therapy. Plan: - Resume atorvastatin 20 mg Gout Assessment: Patient has gout requiring continued uric acid lowering therapy. Plan: - Resume allopurinol 100 mg daily Plan discussed with: Patient My Orders Orders - PRABHAKAR MURRAY Procedure Category Date Status Time Amylase LAB 07/01/25 In Process 18:15 Admit ADMIT 07/01/25 Transmitted 18:15 Allergies DEANA 07/01/25 In Process 18:15 Sodium Chloride 0.9% PHA 07/01/25 Logged 18:15 Hydrocodone-Acet PHA 07/01/25 Logged 5/325mg Tab ([place] 18:15 Enoxaparin Sodium PHA 07/02/25 Logged (Lovenox) 10:00 Npo (Nothing By DIET 07/01/25 Transmitted Mouth) Diet Dinner Condition: Stable DEANA 07/01/25 In Process 18:15 Acetaminophen Tablet PHA 07/01/25 Logged (Tylenol Tablet) 18:15 Nitroglycerin PHA 07/01/25 Logged Sublingual (Ntrostat 18:15 Morphine Sulfate PHA 07/01/25 Logged Injection 18:15 Stat Ekg For Chest [facility] 07/01/25 In Process Pain 18:15 Notify Of Changes [facility] 07/01/25 In Process From Base 18:15 Transit Worker For [facility] 07/01/25 In Process 24 Hours 18:15 Emergency Dysrhythmia [facility] 07/01/25 In Process Protocol 18:15 Rhythm Strips Once [facility] 07/01/25 In Process Every Shift 18:15 Oxygen By Nasal RT 07/01/25 Transmitted Cannula 18:15 Morphine Sulfate PHA 07/01/25 Logged Injection 18:15 *Cons[address] Dr[address] Robles CONS 07/01/25 Transmitted [place] 18:15 Hemoglobin A1c LAB 07/01/25 Transmitted 18:18 Date of Service: Jul 01, 2025 Billing Provider: KAYLEE GAITAN MD Common Visit Codes: [id number] INP/OBS CARE (MOD), [id number] INP/OBS CARE (HIGH) PRABHAKAR MURRAY Jul 01, 2025 18:20
[2025-07-01] MEDS: SODIUM CHLORIDE 0.9% 1,000 ML IV SCH (19:00)
[2025-07-01] MEDS: IOHEXOL 300 MG/ML 100ML BOTTLE IJ ONE (19:07)
[2025-07-01] MEDS ORDERED: DEXTROSE (50%) 50ML SYRG IV PRN (19:15)
--- NOTE | 2025-07-01 19:26 | DVH ---
EXAM: CT CT AB PEL WITH IV CON ONLY HISTORY: pancreatitis TECHNIQUE: Volumetric multidetector CT images of the abdomen and pelvis were obtained after the administration of intravenous contrast. All CT scans at this facility use dose modulation, iterative reconstruction, and/or weight based dosing when appropriate to reduce radiation dose to as low as reasonably achievable. COMPARISON: CT CT AB PEL WO CON-NO ORAL OR IV on DOS: 07/01/25 FINDINGS: [LOWER CHEST]: Trace bilateral pleural effusions. Coronary artery calcifications. [LIVER]: Extensive heterogeneous areas of hypoenhancement with extensive oval- shaped hypoattenuating lesion some which demonstrate significant peripheral enhancement highly concerning for metastatic disease. Characteristic lesion in the right inferior hepatic lobe, hepatic segment 5/6 measures 1.7 cm [GALLBLADDER AND BILIARY TREE]: No cholelithiasis. [SPLEEN]: Unremarkable. [PANCREAS]: Significant abnormal pancreatic head mass measuring 3.3 x 3.7 cm most likely compatible with pancreatic adenocarcinoma. Significant peripancreatic fluid collections extending anteriorly and left anterior inferiorly with peripheral enhancement which may be compatible with infected peripancreatic fluid collection. Overall size measures 7.2 by 13 cm (axial 30). [ADRENAL GLANDS]: Unremarkable [KIDNEYS]: No hydronephrosis. No nephroureterolithiasis. [BLADDER]: Decompressed [REPRODUCTIVE ORGANS]: Unremarkable. [BOWEL/MESENTERY]: Stomach is decompressed. No CT evidence of bowel obstruction. [ASCITES]: Mild ascites [LYMPHADENOPATHY]: No pathologically enlarged lymph nodes by CT size criteria [VASCULATURE]: No aneurysmal dilatation. Altered perfusion of the liver with question occlusion of the portal confluence close proximity to the pancreatic head mass [ABDOMINAL WALL]: Unremarkable. [MUSCULOSKELETAL]: Prior healed right posterior 9th and 10th rib fractures. Multifocal degenerative change of the visualized spine. IMPRESSION: 1. Significant abnormal pancreatic head mass measuring 3.3 x 3.7 cm most likely compatible with pancreatic adenocarcinoma. 2. Altered perfusion of the liver with question occlusion of the portal confluence close proximity to the pancreatic head mass 3. Significant peripancreatic fluid collections extending anteriorly and left anterior inferiorly with peripheral enhancement which may be compatible with infected peripancreatic fluid collection. 4. Extensive heterogeneous areas of hypoenhancement with extensive oval-shaped hypoattenuating lesion some which demonstrate significant peripheral enhancement highly concerning for metastatic disease.
[2025-07-01 19:55] VITALS: BP 155/81; PULSE 59; RESP 16; TEMP 97.5; O2SAT 100
[2025-07-01 19:57] VITALS: BP 155/81; PULSE 59; RESP 16; TEMP 97.5
[2025-07-01] MEDS: InsuLIN REG 1unit/0.01ml Soln (100units/ml) SC SCH (22:00)
[2025-07-01] MEDS: ACCU-CHEK COMFORT CURVE STRIP VI SCH (22:06)
[2025-07-02] VITALS (8 sets, daily range): BP systolic 141–171; BP diastolic 69–89; PULSE 55–62; RESP 16–20; TEMP 97.8–98.4; O2SAT 98–100
--- NOTE | 2025-07-02 07:38 | DVHPN2 ---
Progress Note - Dictate Date Seen: Jul 02, 2025 Medical Necessity Reason Pt with a Central, PICC or Fol: No vital signs Vital Sign Date Time Temp Pulse Resp B/P (MAP) Pulse Ox O2 Delivery O2 Flow Rate FiO2 07/02/25 04:22 98.3 62 17 171/89 (116) 99 98.3 07/01/25 19:57 Room Air* 0 21 Total Intake and Output 07/01/25 07/01/25 07/02/25 15:00 23:00 07:00 Intake Total 0 ml Balance 0 ml medications Current Medications Medications Dose Ordered Sig/Valery Route Start Time Stop Time Status Last Admin Dose Admin Sodium Chloride 1,000 ml @ 120 mls/hr Q8H20M IV 07/01/25 18:15 07/01/25 19:00 120 MLS/HR Acetaminophen/ Hydrocodone Bitart 1 tab Q4HP PRN PO 07/01/25 18:15 Enoxaparin Sodium 40 mg DAILY SC 07/02/25 10:00 Acetaminophen 650 mg Q6HP PRN PO 07/01/25 18:15 Nitroglycerin 0.4 mg Q5MINP PRN SL 07/01/25 18:15 Morphine Sulfate 2 mg Q30M PRN IV 07/01/25 18:15 Morphine Sulfate 4 mg Q4HPRN PRN IV 07/01/25 18:15 Pantoprazole Sodium 40 mg DAILY IV 07/02/25 10:00 Allopurinol 100 mg DAILY PO 07/02/25 10:00 Atorvastatin Calcium 20 mg DAILY PO 07/02/25 10:00 Diagnostic Test (Pha) 1 strip ACHS 07/01/25 22:00 07/02/25 06:14 1 STRIP Insulin Human Regular ACHS SC 07/01/25 22:00 Dextrose 50 ml UD PRN IV 07/01/25 19:15 objective General Appearance: alert, no distress HEENT: EOMI, PERRLA, normal external inspect of ears, no icterus, no nasal drainage Neck: no carotid bruit, no jugular venous distention (JVD), no lymphadenopathy Chest: normal thorax Respiratory: clear to auscultation, normal air movement Cardiovascular: regular rate and rhythm, no diastolic murmur, no jugular venous distention (JVD), no rub, no systolic murmur Abdominal: soft, no hepatomegaly, no mass, no splenomegaly, no tenderness Musculoskeletal: no joint tenderness, no swelling Extremities: normal pulses, no calf tenderness, no clubbing, no cyanosis, no edema Skin: no bruising, no jaundice, no rash Neurological: alert, No focal deficit laboratory and microbiology Laboratory Tests 07/01/25 16:02 Test 07/01/25 16:02 Range/Units Serum Glucose 167 H 74-106 mg/dL Problem List Acute Pancreatitis Assessment: Patient presents with acute abdominal pain in the setting of recent travel to [facility]. Clinical presentation and evaluation support diagnosis of acute pancreatitis requiring inpatient management. Plan: - Admit to hospital - IV fluid administration - GI consultation - Pain medications as needed - NPO status - PPI therapy - DVT prophylaxis Morbid Obesity Assessment: Patient has morbid obesity requiring lifestyle modification interventions. Plan: - Advised to exercise Anemia Assessment: Patient has anemia requiring monitoring. Plan: - Monitor Hyperlipidemia Assessment: Patient has hyperlipidemia requiring continued statin therapy. Plan: - Resume atorvastatin 20 mg Gout Assessment: Patient has gout requiring continued uric acid lowering therapy. Plan: - Resume allopurinol 100 mg daily New onset type 2 diabetes Plan: Labs, medications, diet, monitoring Assessment/Plan Subjective Patient is awake and alert. Objective is at bedside. Tariff Compiler was used for update in regards to admission. Patient was admitted for abdominal pain, related to pancreatic mass. Liver nodules were found, possible pancreatic cancer with metastasis. Tumor marker labs are pending. GI has been consulted. Patient may need high-level care for EUS. Radiologist has been consulted for liver nodule biopsy. Plan Continue current treatment. Continue as needed medication. NPO. Hold anticoagulation. Plan discussed with: Patient, Other SIMONA FRANKLIN NP Jul 02, 2025 07:38
[2025-07-02] MEDS: PANTOPRAZOLE 40 MG/10 ML VIAL INJ IV SCH (09:20)
[2025-07-02] MEDS: ATORVASTATIN 20 MG TAB PO SCH (09:21)
[2025-07-02] MEDS: ENOXAPARIN SOD 40 MG/0.4 ML SYRINGE SC SCH (09:30)
[2025-07-02] MEDS: ALLOPURINOL 100 MG TAB PO SCH (09:43)
[2025-07-02 10:22] LABS: Hemoglobin 10.6 g/dL (13.5-17.5)
[2025-07-02 10:24] LABS: Hematocrit 32.3 % (41.0-53.0); Mean Corpuscular Hemoglobin 20.7 pg (28.0-32.0); Mean Corpuscular Volume 63.0 fL (80.0-100.0); Nucleated Red Blood Cells % 0.1 %
[2025-07-02 10:35] LABS: Alanine Aminotransferase 27 U/L (7-40); Albumin 4.2 g/dL (3.2-4.8); Alkaline Phosphatase 83 U/L (46-116); Anion Gap 12 (5-15); BUN/Creatinine Ratio 14.5 (10.0-20.0); Blood Urea Nitrogen 12 mg/dL (9-23); Calcium 9.4 mg/dL (8.7-10.4); Carbon Dioxide 25 mmol/L (20-31); Chloride 105 mmol/L (98-107); Potassium 4.0 mmol/L (3.5-5.1); Sodium 142 mmol/L (136-145); Total Protein 7.4 g/dL (5.7-8.2)
[2025-07-02 10:36] LABS: Bilirubin, Total 0.7 mg/dL (0.2-1.0)
[2025-07-02 10:37] LABS: INR 1.07 (0.9-1.15); Partial Thromboplastin Time 26.6 SEC (24.5-34.5); Prothrombin Time 11.3 sec (9.3-11.8)
[2025-07-02 10:43] LABS: Creatine Kinase IFCC 33.0 U/L (46-171)
[2025-07-02 10:45] LABS: Glucose 112 mg/dL (74-106)
--- NOTE | 2025-07-02 16:10 | DVHCONRES ---
Date Seen: Jul 02, 2025 Resident Creating Document: GEN TRAN RESIDENT History of Present Illness 70-year-old male who recently travel to [facility] presents to the ER with a chief complaint of abdominal pain and diarrhea for the past 1 month. Patient recently visited [facility] with his where he was diagnosed with typhoid fever after having abdominal pain. He received some medication but does not remember the name. Patient never has had EGD/colonoscopy. Patient reports eating and trying new food, developed abdominal pain, across the lower abdomen, nonradiating, along with the episodes of diarrhea nonbloody for the past month. He says that his did not try the food and did not get sick. Also reports 12 lb weight loss in the past month. Past medical/surgical history: Anemia Social history: Lives with nina, smokes 3 cigarettes-previously half a pack a day for the past 20 years, drinks socially Patient seen and examined. IR consulted for IR guided liver biopsy. Family History: Patient reports no known family medical history. Allergies: Uncoded Allergies: hair dye (Allergy, Unknown, 07/02/25) Head became swollen Home Meds Reported Medications Allopurinol (Allopurinol) 100 Mg Tab, 1 TAB PO DAILY 07/01/25 Atorvastatin Calcium (ATORVASTATIN CALCIUM) 20 Mg Tab, 1 TAB PO DAILY 07/01/25 Current Medications Current Medications Medications (Trade) Dose Ordered Sig/Valery Route PRN Reason Start Time Stop Time Status Last Admin Sodium Chloride 1,000 ml @ 120 mls/hr Q8H20M IV 07/01/25 18:15 07/02/25 09:20 Acetaminophen/ Hydrocodone Bitart ([place] 5/325MG Tab) 1 tab Q4HP PRN PO MODERATE PAIN (4-6 PAIN SCALE) 07/01/25 18:15 Enoxaparin Sodium (Lovenox) 40 mg DAILY SC 07/02/25 10:00 Acetaminophen (Tylenol Tablet) 650 mg Q6HP PRN PO PAIN SCALE 1-3 OR TEMP>100.4 07/01/25 18:15 Nitroglycerin (Ntrostat Sublingual) 0.4 mg Q5MINP PRN SL FOR CHEST PAIN 07/01/25 18:15 Morphine Sulfate 2 mg Q30M PRN IV FOR CHEST PAIN 07/01/25 18:15 Morphine Sulfate 4 mg Q4HPRN PRN IV SEVERE PAIN (7-10 PAIN SCALE) 07/01/25 18:15 Pantoprazole Sodium (Protonix) 40 mg DAILY IV 07/02/25 10:00 07/02/25 09:20 Allopurinol (Zyloprim Tablet) 100 mg DAILY PO 07/02/25 10:00 07/02/25 09:43 Atorvastatin Calcium (Lipitor) 20 mg DAILY PO 07/02/25 10:00 07/02/25 09:21 Diagnostic Test (Pha) (Accu-Chek Comfort Curve T) 1 strip ACHS 07/01/25 22:00 07/02/25 13:32 Insulin Human Regular (InsuLIN R) ACHS SC 07/01/25 22:00 07/02/25 13:36 Dextrose 50 ml UD PRN IV Blood Sugar LESS THAN 60 07/01/25 19:15 Review of Systems Eyes: No Pain, No Vision change, No Conjunctivae inflammation, No Eyelid i nflammation, No Other, No Redness ENT: No Ear pain, No Ear discharge, No Nose pain, No Nose discharge, No Nose congestion, No Mouth pain, No Mouth swelling, No Throat pain, No Throat swelling, No Other Cardiovascular: No Chest Pain, No Palpitations, No Orthopnea, No PND, No Edema, No Lt Headedness, No Other Respiratory: No Cough, No Dry, No Shortness of breath, No SOB with exertion, No Wheezing, No Hemoptysis, No Pleuritic Pain, No Sputum, No Other Gastrointestinal: Reports abdominal pain, diarrhea, No Constipation, No Melena, No Hematochezia, No Other Genitourinary: No Dysuria, No Frequency, No Incontinence, No Hematuria, No Retention, No Other Musculoskeletal: No other, No neck pain, No shoulder pain, No arm pain, No back pain, No hand pain, No leg pain, No foot pain Skin: No Rash, No Lesions, No Jaundice, No Bruising, No Other Vital Signs Vital Signs Date Time Temp Pulse Resp B/P (MAP) Pulse Ox O2 Delivery O2 Flow Rate FiO2 07/02/25 15:06 97.8 58 18 151/86 (107) 100 97.8 07/02/25 07:50 Room Air* 0 21 Physical Exam Patient lying in bed, in no acute distress General: Cachectic, afebrile, palor, mucosae are moist Cardiovascular: Regular S1 and S2. No murmurs, gallops or rubs. No JVD elevation. No pedal edema Respiratory: Normal B/L air entry on room air. Clear lung sounds on auscultation Abdomen: Soft, nontender, nondistended, normoactive bowel sounds, no rebound tenderness, no organomegaly, no masses. Abdomen is multiple dark spots Genitourinary: Deferred MSK/skin: Mobilizes 4 limbs. Skin is dry and warm Neurological: No motor, no sensitive deficits, normal speech. Pupils are isocoric and reactive. Psych/Mental Status: A/Ox3 Labs/Diagnostic Data Labs Test 07/02/25 13:30 07/02/25 10:00 07/01/25 19:00 07/01/25 16:02 Range/Units POC Glucose 177 H 70-106 mg/dl White Blood Count 9.4 4.4-10.8 10^3/uL Red Blood Count 5.12 4.5-5.90 10^6/uL Hemoglobin 10.6 L 13.5-17.5 g/dL Hematocrit 32.3 #L 41.0-53.0 % Mean Corpuscular Volume 63.0 L 80.0-100.0 fL Mean Corpuscular Hemoglobin 20.7 L 28.0-32.0 pg Mean Corpuscular Hemoglobin Concent 32.9 32.0-36.0 g/dL Red Cell Distribution Width 16.9 H 11.8-14.3 % Platelet Count 224 140-450 10^3/uL Mean Platelet Volume 7.4 6.9-10.8 fL Neutrophils (%) (Auto) 61.5 37.0-80.0 % Lymphocytes (%) (Auto) 25.9 10.0-50.0 % Monocytes (%) (Auto) 7.2 0.0-12.0 % Eosinophils (%) (Auto) 4.4 0.0-7.0 % Basophils (%) (Auto) 1.0 0.0-2.0 % Neutrophils # (Auto) 5.8 1.6-8.6 10 ^3/uL Lymphocytes # (Auto) 2.4 0.4-5.4 10 ^3/uL Monocytes # (Auto) 0.7 0-1.3 10 ^3/uL Eosinophils # (Auto) 0.4 0-0.8 10 ^3/uL Basophils # (Auto) 0.1 0-0.2 10 ^3/uL Nucleated Red Blood Cells 0.1 % Erythrocyte Sedimentation Rate 22 H 0-20 mm/hr Prothrombin Time 11.3 9.3-11.8 sec Prothrombin Time INR 1.07 0.9-1.15 Activated Partial Thromboplast Time 26.6 24.5-34.5 SEC Sodium Level 142 136-145 mmol/L Potassium Level 4.0 3.5-5.1 mmol/L Chloride Level 105 98-107 mmol/L Carbon Dioxide Level 25 20-31 mmol/L Anion Gap 12 5-15 Blood Urea Nitrogen 12 9-23 mg/dL Creatinine 0.83 0.700-1.30 mg/dL Glomerular Filtration Rate Calc 95 >90 mL/min BUN/Creatinine Ratio 14.5 10.0-20.0 Serum Glucose 112 H 74-106 mg/dL Calcium Level 9.4 8.7-10.4 mg/dL Total Bilirubin 0.7 0.2-1.0 mg/dL Aspartate Amino Transferase (AST) 38 13-40 U/L Alanine Aminotransferase (ALT) 27 7-40 U/L Alkaline Phosphatase 83 46-116 U/L Creatine Kinase 33 L 46-171 U/L C-Reactive Protein High Sensitivity 0.51 <1.0 mg/dL Total Protein 7.4 5.7-8.2 g/dL Albumin 4.2 3.2-4.8 g/dL Carcinoembryonic Antigen 62.95 <=5.0 ng/mL Hemoglobin A1c 8.9 H <5.7 % A1C Amylase Level 406 H 30-118 U/L Lipase 86 H 12-53 U/L Test 07/01/25 15:45 Range/Units Urine Color Dark-yellow Yellow Urine Clarity Turbid H Clear Urine pH 6.0 5.0-9.0 Urine Specific [place] 1.037 H 1.001-1.035 Urine Protein 1+ H Negative Urine Ketones Trace Negative Urine Blood Negative Negative /uL Urine Nitrite Negative Negative Urine Bilirubin 1+ Negative Urine Urobilinogen 3 H Negative mg/dL Urine Leukocyte Esterase Negative Negative /uL Urine RBC 2 0 - 3 /hpf Urine Microscopic WBC 3 0-3 /HPF Urine Squamous Epithelial Cells Few <5 /hpf Urine Bacteria None seen None Seen /hpf Urine Hyaline Casts Many 0 - 2 /lpf Urine Mucus Moderate None Seen Urine Glucose Trace Normal mg/dL Assessment ? Pancreatic adenocarcinoma ? Liver metastasis Anemia likely microcytic Iron-deficiency anemia New onset diabetes mellitus type 2-A1c 8.9 Transaminitis ? Recent history of typhoid fever CT abdomen with IV contrast shows Significant abnormal pancreatic head mass measuring 3.3 x 3.7 cm most likely compatible with pancreatic adenocarcinoma. Altered perfusion of the liver with question occlusion of the portal confluence close proximity to the pancreatic head mass [LIVER]: Extensive heterogeneous areas of hypoenhancement with extensive oval- shaped hypoattenuating lesion some which demonstrate significant peripheral enhancement highly concerning for metastatic disease. Characteristic lesion in the right inferior hepatic lobe, hepatic segment 5/6 measures 1.7 cm ESR 22 CRP Serum CK 33 CA 19 9 pending AFP pending Plan: Recommendation: Dr. Bhandari Given the highly suspicious pancreatic head mass and heterogeneous areas in the liver, we consulted IR for IR guided liver biopsy. Follow up with tumor markers Follow up with iron panel and ferritin Continue clear liquid diet, NPO after midnight Diabetic education Protonix 40 mg p.o. daily Follow up with the stool studies including stool WBC, ova and parasites Plan discussed with patient, patient's son at bedside in which all questions have been answered Case discussed with Dr. Bhandari Plan discussed with: Patient, Spouse, Son GEN TRAN RESIDENT Jul 02, 2025 16:10
[2025-07-02 16:41] LABS: Iron 59.0 ug/dL (65-175)
[2025-07-02 16:44] LABS: Total Iron Binding Capacity 283.0 ug/dL (250-425)
[2025-07-02] MEDS: ACETAMINOPHEN 325 MG TAB PO PRN (20:11)
[2025-07-03] VITALS (7 sets, daily range): BP systolic 142–160; BP diastolic 79–93; PULSE 55–64; RESP 16–19; TEMP 97.2–98; O2SAT 96–100
[2025-07-03] MEDS: LISINOPRIL 5 MG TAB PO SCH (10:00)
[2025-07-03] MEDS: MORPHINE SULFATE 4 MG/ML SYR/VIAL IV PRN (10:07)
[2025-07-03 11:43] LABS: Hematocrit 32.3 % (41.0-53.0); Hemoglobin 10.7 g/dL (13.5-17.5); Mean Corpuscular Hemoglobin 20.7 pg (28.0-32.0); Mean Corpuscular Volume 62.9 fL (80.0-100.0); Nucleated Red Blood Cells % 0.1 %
[2025-07-03 11:55] LABS: Alanine Aminotransferase 21 U/L (7-40); Albumin 3.9 g/dL (3.2-4.8); Alkaline Phosphatase 74 U/L (46-116); Anion Gap 12 (5-15); BUN/Creatinine Ratio 12.5 (10.0-20.0); Bilirubin, Total 0.7 mg/dL (0.2-1.0); Calcium 9.0 mg/dL (8.7-10.4); Carbon Dioxide 23 mmol/L (20-31); Chloride 103 mmol/L (98-107); Glucose 101 mg/dL (74-106); Potassium 4.7 mmol/L (3.5-5.1); Sodium 138 mmol/L (136-145); Total Protein 6.8 g/dL (5.7-8.2)
[2025-07-03 11:58] LABS: Blood Urea Nitrogen 9 mg/dL (9-23)
[2025-07-03] MEDS: IRON SUCROSE COMPLEX 110 ML IV SCH (12:00)
--- NOTE | 2025-07-03 12:07 | DVHINCON2 ---
Date of service: Jul 03, 2025 Family History: Patient reports no known family medical history. Allergies: Uncoded Allergies: hair dye (Allergy, Unknown, 07/02/25) Head became swollen Home Meds Reported Medications Allopurinol (Allopurinol) 100 Mg Tab, 1 TAB PO DAILY 07/01/25 Atorvastatin Calcium (ATORVASTATIN CALCIUM) 20 Mg Tab, 1 TAB PO DAILY 07/01/25 Current Medications Current Medications Medications (Trade) Dose Ordered Sig/Valery Route PRN Reason Start Time Stop Time Status Last Admin Iron Sucrose 110 ml @ 110 mls/hr DAILY@1200 IV 07/03/25 12:00 07/07/25 11:59 UNV Lisinopril (Zestril Tablet) 10 mg DAILY PO 07/03/25 10:00 Vital Signs Vital Signs Date Time Temp Pulse Resp B/P (MAP) Pulse Ox O2 Delivery O2 Flow Rate FiO2 07/03/25 10:07 58 16 151/87 07/03/25 08:51 97.9 100 97.9 07/02/25 20:00 Room Air* 0 21 Labs/Diagnostic Data Labs Test 07/03/25 11:21 07/03/25 11:02 07/02/25 16:19 07/02/25 16:18 Range/Units POC Glucose 110 H 70-106 mg/dl White Blood Count 9.2 4.4-10.8 10^3/uL Red Blood Count 5.14 4.5-5.90 10^6/uL Hemoglobin 10.7 L 13.5-17.5 g/dL Hematocrit 32.3 L 41.0-53.0 % Mean Corpuscular Volume 62.9 L 80.0-100.0 fL Mean Corpuscular Hemoglobin 20.7 L 28.0-32.0 pg Mean Corpuscular Hemoglobin Concent 33.0 32.0-36.0 g/dL Red Cell Distribution Width 17.1 H 11.8-14.3 % Platelet Count 228 140-450 10^3/uL Mean Platelet Volume 7.4 6.9-10.8 fL Neutrophils (%) (Auto) 68.1 37.0-80.0 % Lymphocytes (%) (Auto) 19.9 10.0-50.0 % Monocytes (%) (Auto) 7.2 0.0-12.0 % Eosinophils (%) (Auto) 4.0 0.0-7.0 % Basophils (%) (Auto) 0.8 0.0-2.0 % Neutrophils # (Auto) 6.3 1.6-8.6 10 ^3/uL Lymphocytes # (Auto) 1.8 0.4-5.4 10 ^3/uL Monocytes # (Auto) 0.7 0-1.3 10 ^3/uL Eosinophils # (Auto) 0.4 0-0.8 10 ^3/uL Basophils # (Auto) 0.1 0-0.2 10 ^3/uL Nucleated Red Blood Cells 0.1 % Reticulocyte Count (auto) 1.89 H 0.5-1.5 % Sodium Level 138 136-145 mmol/L Potassium Level 4.7 3.5-5.1 mmol/L Chloride Level 103 98-107 mmol/L Carbon Dioxide Level 23 20-31 mmol/L Anion Gap 12 5-15 Blood Urea Nitrogen 9 9-23 mg/dL Creatinine 0.72 0.700-1.30 mg/dL Glomerular Filtration Rate Calc 100 >90 mL/min BUN/Creatinine Ratio 12.5 10.0-20.0 Serum Glucose 101 74-106 mg/dL Calcium Level 9.0 8.7-10.4 mg/dL Total Bilirubin 0.7 0.2-1.0 mg/dL Aspartate Amino Transferase (AST) 40 13-40 U/L Alanine Aminotransferase (ALT) 21 7-40 U/L Alkaline Phosphatase 74 46-116 U/L Total Protein 6.8 5.7-8.2 g/dL Albumin 3.9 3.2-4.8 g/dL Iron Level 59 L 65-175 ug/dL Total Iron Binding Capacity 283 250-425 ug/dL Percent Iron Saturation 20.8 20-55 % Ferritin 733.5 H 22-322 ng/mL Tumor Marker Alpha Fetoprotein <1.8 0.0-8.4 ng/mL Test 07/02/25 10:00 07/01/25 19:00 07/01/25 16:02 07/01/25 15:45 Range/Units Erythrocyte Sedimentation Rate 22 H 0-20 mm/hr Prothrombin Time 11.3 9.3-11.8 sec Prothrombin Time INR 1.07 0.9-1.15 Activated Partial Thromboplast Time 26.6 24.5-34.5 SEC Creatine Kinase 33 L 46-171 U/L C-Reactive Protein High Sensitivity 0.51 <1.0 mg/dL Carcinoembryonic Antigen 62.95 <=5.0 ng/mL CA 19-9 Antigen 19955 H 0-35 U/mL CA 125 Antigen 281.0 Not Estab. U/mL Hemoglobin A1c 8.9 H <5.7 % A1C Amylase Level 406 H 30-118 U/L Lipase 86 H 12-53 U/L Urine Color Dark-yellow Yellow Urine Clarity Turbid H Clear Urine pH 6.0 5.0-9.0 Urine Specific Dunbar 1.037 H 1.001-1.035 Urine Protein 1+ H Negative Urine Ketones Trace Negative Urine Blood Negative Negative /uL Urine Nitrite Negative Negative Urine Bilirubin 1+ Negative Urine Urobilinogen 3 H Negative mg/dL Urine Leukocyte Esterase Negative Negative /uL Urine RBC 2 0 - 3 /hpf Urine Microscopic WBC 3 0-3 /HPF Urine Squamous Epithelial Cells Few <5 /hpf Urine Bacteria None seen None Seen /hpf Urine Hyaline Casts Many 0 - 2 /lpf Urine Mucus Moderate None Seen Urine Glucose Trace Normal mg/dL Microbiology Date/Time Source Procedure Growth Status 07/01/25 18:39 Blood Blood Culture - Preliminary NO GROWTH AFTER 24 HOURS OF INCUBATION. Resulted Problems(with codes): (1) Pancreatic cyst (2) Ascites (3) Acute pancreatitis (4) Diarrhea Plan/Recommendation ASSESSMENT AND PLAN: ID Problem List: -Acute pancreatitis -Pancreatic head mass (CT suggests probable pancreatic adenocarcinoma) -Extensive hepatic lesions suspicious for metastases; ascites -Large multiloculated peripancreatic fluid collection (tail) 6.6 cm; possible infected peripancreatic fluid collection -Diarrhea x ~1 month -Recent travel to [facility] without prior vaccinations -Morbid obesity -Anemia -Hyperlipidemia -Gout Assessment This is a 70 y.o. male with morbid obesity, anemia, hyperlipidemia, and gout presenting with 1 month of acute abdominal pain and diarrhea after recent travel to [facility] (no prior vaccinations). On arrival he had a mildly distended abdomen with diffuse tenderness. Initial labs notable for WBC ~9.8, Hgb 12.4, Plt 254; UA without pyuria; lipase 86; creatinine 1.02; BUN 9. Subsequent labs in transcript are internally inconsistent: WBC 9.4; hemoglobin is 4.4; decreased to 10.6; platelets 224. CT A/P (non-contrast) showed acute pancreatitis with a 6.6 cm multiloculated collection adjacent to the pancreatic tail and small-volume ascites. Contrast CT showed a pancreatic head mass (~3.3 ~3.0 cm; second dimension partially unclear in transcript) most compatible with pancreatic adenocarcinoma; altered liver perfusion with questionable occlusion of the portal confluence near the mass; extensive peripancreatic fluid collections with enhancement possibly compatible with infected collection; and multiple hepatic lesions with peripheral enhancement highly concerning for metastatic disease. Blood cultures reported as no growth to date in the transcript. Plan: \-- Start meropenem empirically for possible infected/necrotic peripancreatic fluid collection in the setting of acute inflammation; if no fevers, leukocytosis, or signs of sepsis persist, transition off meropenem and monitor clinically -- consider addition of bactrim if MDR shigella infection suspected. \-- GI consultation for tissue diagnosis of pancreatic mass (biopsy) and consideration of ERCP \-- Follow up blood cultures (no growth to date per transcript) and any additional cultures \-- Given recent travel and ongoing diarrhea, send stool studies (culture and additional pathogen testing as indicated) to evaluate for coexisting infectious diarrhea; clinical suspicion currently low per transcript \-- Defer comprehensive management of acute pancreatitis and abdominal pain to the primary team \-- Medication reconciliation: patient reports no home medications \-- Allergies: no known drug allergies Isolation Precautions: standard Assessment and plan was discussed with the patient as written above Plan is subject to change pending incorporation of new incoming information/diagnostics. Updates may be added as addendum at the bottom (OR TOP) of this note Thank you for interesting consult. ID will continue to follow. Please contact Infectious Disease for any questions or concerns. Prema Chery M.D. [facility] Ph: ? Teams text: [email or web address] Electronically signed by: Prema Chery MD, 07/03/2025 \ History: The patient is a 70 y.o. male with morbid obesity, anemia, hyperlipidemia, and gout who presents with acute abdominal pain and diarrhea for approximately one month. Recent travel to [facility] without prior vaccinations. No known drug allergies. No recent surgeries. Reports no home medications. Admitted for IV fluid resuscitation and evaluation of acute pancreatitis and anemia. Note: transcript phrase potential type tightness is unclear; evaluation for acute pancreatitis is explicitly stated. Review of Systems: -Constitutional: Not discussed -HEENT: Not discussed -Respiratory: Not discussed -Cardiovascular: Not discussed -Gastrointestinal: Positive for abdominal pain and diarrhea -Genitourinary: Not discussed -Musculoskeletal: Not discussed -Skin: Not discussed -Neurological: Not discussed -Psychiatric: Not discussed Past Medical History: -Morbid obesity -Anemia -Hyperlipidemia -Gout Past Surgical History: -No recent surgeries per transcript; otherwise not provided Home Medications: -None reported Allergies: -No known drug allergies Family History: -Not provided in transcript Social History: -Recent travel: [facility]; no prior vaccinations -Tobacco/alcohol/drug use and sexual history: Not discussed Objective: Vital Signs on Arrival: -Temp: 97.5 (units not specified) -Pulse: 76 -BP: 135/87 -SpO2: value unclear in transcript (7095% on room air); exact value not discernible -Respiratory rate: Not provided Most Recent Vital Signs: -Not provided in transcript Admission Weight: -Not provided in transcript (BMI not available) Physical Exam: General: NAD Neck: Supple. No masses. HEENT: PERRL. Normal lids and conjunctiva. Moist mucous membranes. Oropharynx without lesions, exudates or excessive erythema. Normal appearance of the external aspects of the nose and ears. Heart: Regular rhythm, normal rate. No murmur. No lower extremity edema. Lungs: Normal respiratory effort. Clear to auscultation bilaterally. No wheezes. No crackles. Abdomen: Soft. Mildly distended. Diffusely tender to palpation. No masses or abdominal hernia noted in transcript. Msk: No digital cyanosis. Normal strength and tone in all 4 limbs. Skin: Warm and dry, no rashes. Neuro: Alert. No facial droop or slurred speech. Extra-ocular movements intact. Sensation intact to soft touch in all 4 limbs. Psych: Appropriate mood. Full affect. Oriented to person, place, time, and situation. Lines: -Not provided in transcript Diagnostic Studies: Available diagnostic studies were reviewed. Ash results: -Hematology: Initial WBC 9.8; later WBC 9.4 (per transcript). Hemoglobin initially 12.4; transcript also states hemoglobin is 4.4 and decreased to 10.6 (values conflict/unclear). Platelets 254 initially; later 224. -Chemistry: Creatinine 1.02; BUN 9. -Lipase: 86. -Urinalysis: No pyuria. -Microbiology: Blood cultures no growth to date (as stated). Additional stool testing recommended but not yet reported. Pertinent Imaging: -CT Abdomen/Pelvis (non-contrast): Acute pancreatitis with large multiloculated fluid collection adjacent to pancreatic tail measuring 6.6 cm. Small-volume abdominopelvic ascites. -CT Abdomen/Pelvis with contrast: Significant abnormal pancreatic head mass measuring approximately 3.3 ~3.0 cm (second dimension partially unclear in transcript), most compatible with pancreatic adenocarcinoma. Altered perfusion of the liver with questionable occlusion of the portal confluence near the pancreatic head mass. Significant peripancreatic fluid collections extending posteriorly and anteriorly/left anteroinferiorly with enhancement, possibly compatible with infected peripancreatic fluid collection. Extensive heterogeneous hepatic hypoenhancement with multiple ovoid hypoattenuating lesions, some with peripheral enhancement, highly concerning for metastatic disease. Plan discussed with: Patient PREMA CHERY MD Jul 03, 2025 12:07
[2025-07-03] MEDS: HYDROcodone-ACET 5/325MG TAB PO PRN (13:54)
[2025-07-03] MEDS: MEROPENEM 1GM IVPB 50 ML IV SCH (13:55)
[2025-07-03] MEDS ORDERED: HYDR25TA4 PO (13:59)
[2025-07-03] MEDS ORDERED: OMEP20TA PO (14:00)
[2025-07-03] MEDS ORDERED: ACET-1881 PO (14:00)
--- NOTE | 2025-07-03 14:23 | DVHPN2 ---
Progress Note - Dictate Date Seen: Jul 03, 2025 Medical Necessity Reason Pt with a Central, PICC or Fol: No vital signs Vital Sign Date Time Temp Pulse Resp B/P (MAP) Pulse Ox O2 Delivery O2 Flow Rate FiO2 07/03/25 13:23 97.2 55 16 152/85 (107) 99 97.2 07/03/25 08:10 Room Air* 0 21 Total Intake and Output 07/02/25 07/02/25 07/03/25 15:00 23:00 07:00 Intake Total 300 ml 350 ml Balance 300 ml 350 ml medications Current Medications Medications Dose Ordered Sig/Valery Route Start Time Stop Time Status Last Admin Dose Admin Sodium Chloride 1,000 ml @ 120 mls/hr Q8H20M IV 07/01/25 18:15 07/03/25 11:39 120 MLS/HR Acetaminophen/ Hydrocodone Bitart 1 tab Q4HP PRN PO 07/01/25 18:15 07/03/25 13:54 1 TAB Enoxaparin Sodium 40 mg DAILY SC 07/02/25 10:00 Acetaminophen 650 mg Q6HP PRN PO 07/01/25 18:15 07/02/25 20:11 650 MG Nitroglycerin 0.4 mg Q5MINP PRN SL 07/01/25 18:15 Morphine Sulfate 2 mg Q30M PRN IV 07/01/25 18:15 Morphine Sulfate 4 mg Q4HPRN PRN IV 07/01/25 18:15 07/03/25 10:07 4 MG Pantoprazole Sodium 40 mg DAILY IV 07/02/25 10:00 07/03/25 09:50 40 MG Allopurinol 100 mg DAILY PO 07/02/25 10:00 07/02/25 09:43 100 MG Atorvastatin Calcium 20 mg DAILY PO 07/02/25 10:00 07/02/25 09:21 20 MG Diagnostic Test (Pha) 1 strip ACHS 07/01/25 22:00 07/03/25 11:37 1 STRIP Insulin Human Regular ACHS SC 07/01/25 22:00 07/02/25 21:07 2 UNITS Dextrose 50 ml UD PRN IV 07/01/25 19:15 Iron Sucrose 110 ml @ 110 mls/hr DAILY@1200 IV 07/03/25 12:00 07/07/25 11:59 UNV Lisinopril 10 mg DAILY PO 07/03/25 10:00 Meropenem 50 ml @ 17 mls/hr Q8HR IV 07/03/25 14:00 07/03/25 13:55 17 MLS/HR objective General Appearance: alert, no distress HEENT: EOMI, PERRLA, normal external inspect of ears, no icterus, no nasal drainage Neck: no carotid bruit, no jugular venous distention (JVD), no lymphadenopathy Chest: normal thorax Respiratory: clear to auscultation, normal air movement Cardiovascular: regular rate and rhythm, no diastolic murmur, no jugular venous distention (JVD), no rub, no systolic murmur Abdominal: soft, no hepatomegaly, no mass, no splenomegaly, no tenderness Musculoskeletal: no joint tenderness, no swelling Extremities: normal pulses, no calf tenderness, no clubbing, no cyanosis, no edema Skin: no bruising, no jaundice, no rash Neurological: alert, No focal deficit laboratory and microbiology Laboratory Tests 07/03/25 11:02 Test 07/03/25 11:02 Range/Units Serum Glucose 101 74-106 mg/dL Problem List Acute Pancreatitis Assessment: Patient presents with acute abdominal pain in the setting of recent travel to [facility]. Clinical presentation and evaluation support diagnosis of acute pancreatitis requiring inpatient management. Plan: - Admit to hospital - IV fluid administration - GI consultation - Pain medications as needed - NPO status - PPI therapy - DVT prophylaxis Morbid Obesity Assessment: Patient has morbid obesity requiring lifestyle modification interventions. Plan: - Advised to exercise Anemia Assessment: Patient has anemia requiring monitoring. Plan: - Monitor Hyperlipidemia Assessment: Patient has hyperlipidemia requiring continued statin therapy. Plan: - Resume atorvastatin 20 mg Gout Assessment: Patient has gout requiring continued uric acid lowering therapy. Plan: - Resume allopurinol 100 mg daily New onset type 2 diabetes Plan: Labs, medications, diet, monitoring Pancreatic mass Plan: GI consult Liver lesions Plan: GI consult Assessment/Plan Subjective Patient is awake and alert. Objective Patient states his pain to his abdomen is much better. Patient found to have abdominal pain. Patient was in [facility] recently. Patient may have infection as noted by fluid around pancreas. ID was consulted. Patient may have adenocarcinoma of the pancreas with metastasis to the liver. Patient will need EUS outpatient and liver biopsy once infection has cleared. Son is at bedside to interpret. Plan Continue antibiotics per ID. Discharge planning 1 to 2 days. Plan discussed with: Patient, Other SIMONA FRANKLIN NP Jul 03, 2025 14:23
--- NOTE | 2025-07-03 18:17 | DVHPN2 ---
Progress Note Date Seen: Jul 03, 2025 Resident Creating Document: GEN TRAN RESIDENT Medical Necessity Reason Pt with a Central, PICC or Fol: No Subjective Review of Systems 70-year-old male who recently travel to [facility] presents to the ER with a chief complaint of abdominal pain and diarrhea for the past 1 month. Patient recently visited [facility] with his where he was diagnosed with typhoid fever after having abdominal pain. He received some medication but does not remember the name. Patient never has had EGD/colonoscopy. Patient reports eating and trying new food, developed abdominal pain, across the lower abdomen, nonradiating, along with the episodes of diarrhea nonbloody for the past month. He says that his did not try the food and did not get sick. Also reports 12 lb weight loss in the past month. Past medical/surgical history: Anemia Social history: Lives with nina, smokes 3 cigarettes-previously half a pack a day for the past 20 years, drinks socially 07/02-Patient seen and examined. IR consulted for IR guided liver biopsy. 07/03-Patient seen and examined. Had a bowel movement. Denies any abdominal symptoms. Objective vital signs Vital Sign Date Time Temp Pulse Resp B/P (MAP) Pulse Ox O2 Delivery O2 Flow Rate FiO2 07/03/25 16:59 98.0 61 16 142/82 (102) 100 98.0 07/03/25 08:10 Room Air* 0 21 Total Intake and Output 07/02/25 07/02/25 07/03/25 15:00 23:00 07:00 Intake Total 300 ml 350 ml Balance 300 ml 350 ml medications Current Medications Medications Dose Ordered Sig/Valery Route Start Time Stop Time Status Last Admin Dose Admin Sodium Chloride 1,000 ml @ 120 mls/hr Q8H20M IV 07/01/25 18:15 07/03/25 11:39 120 MLS/HR Acetaminophen/ Hydrocodone Bitart 1 tab Q4HP PRN PO 07/01/25 18:15 07/03/25 13:54 1 TAB Enoxaparin Sodium 40 mg DAILY SC 07/02/25 10:00 Acetaminophen 650 mg Q6HP PRN PO 07/01/25 18:15 07/02/25 20:11 650 MG Nitroglycerin 0.4 mg Q5MINP PRN SL 07/01/25 18:15 Morphine Sulfate 2 mg Q30M PRN IV 07/01/25 18:15 Morphine Sulfate 4 mg Q4HPRN PRN IV 07/01/25 18:15 07/03/25 10:07 4 MG Pantoprazole Sodium 40 mg DAILY IV 07/02/25 10:00 07/03/25 09:50 40 MG Allopurinol 100 mg DAILY PO 07/02/25 10:00 07/02/25 09:43 100 MG Atorvastatin Calcium 20 mg DAILY PO 07/02/25 10:00 07/02/25 09:21 20 MG Diagnostic Test (Pha) 1 strip ACHS 07/01/25 22:00 07/03/25 17:00 1 STRIP Insulin Human Regular ACHS SC 07/01/25 22:00 07/03/25 17:46 2 UNITS Dextrose 50 ml UD PRN IV 07/01/25 19:15 Iron Sucrose 110 ml @ 110 mls/hr DAILY@1200 IV 07/03/25 12:00 07/07/25 11:59 UNV Lisinopril 10 mg DAILY PO 07/03/25 10:00 Meropenem 50 ml @ 17 mls/hr Q8HR IV 07/03/25 14:00 07/03/25 13:55 17 MLS/HR Examination Patient lying in bed, in no acute distress General: Cachectic, afebrile, palor, mucosae are moist Cardiovascular: Regular S1 and S2. No murmurs, gallops or rubs. No JVD elevation. No pedal edema Respiratory: Normal B/L air entry on room air. Clear lung sounds on auscultation Abdomen: Soft, nontender, nondistended, normoactive bowel sounds, no rebound tenderness, no organomegaly, no masses. Abdomen has multiple chronic dark spots Genitourinary: Deferred MSK/skin: Mobilizes 4 limbs. Skin is dry and warm Neurological: No motor, no sensitive deficits, normal speech. Pupils are isocoric and reactive. Psych/Mental Status: A/Ox3 laboratory and microbiology Laboratory Tests 07/03/25 11:02 Test 07/03/25 11:02 Range/Units Serum Glucose 101 74-106 mg/dL Microbiology Date/Time Source Procedure Growth Status 07/01/25 18:39 Blood Blood Culture - Preliminary NO GROWTH AFTER 24 HOURS OF INCUBATION. Resulted Labs and/or images reviewed: Labs reviewed by me, Image(s) reviewed by me Problem List/Assessment/Plan Problem List/Assessment/Plan ? Probable Pancreatic adenocarcinoma ? Probable Liver metastasis Acute pancreatitis with peripancreatic fluid collection Anemia likely microcytic Iron-deficiency anemia New onset diabetes mellitus type 2-A1c 8.9 Transaminitis ? Recent history of typhoid fever-recent travel to [facility] CT abdomen with IV contrast shows Significant abnormal pancreatic head mass measuring 3.3 x 3.7 cm most likely compatible with pancreatic adenocarcinoma. Altered perfusion of the liver with question occlusion of the portal confluence close proximity to the pancreatic head mass [LIVER]: Extensive heterogeneous areas of hypoenhancement with extensive oval- shaped hypoattenuating lesion some which demonstrate significant peripheral enhancement highly concerning for metastatic disease. Characteristic lesion in the right inferior hepatic lobe, hepatic segment 5/6 measures 1.7 cm ESR 22 CRP Serum CK 33 CA 19 9 pending AFP pending Plan: Recommendation: Dr. Bhandari H&H stable. No acute symptoms. Per radiologist, given the acute pancreatitis, liver biopsy is a high-risk procedure and to be done as outpatient. Radiologist recommended oncology consultation. Recommend higher level of care for EUS/ERCP, otherwise urgent outpatient follow up with the IR and oncology CA 19-9 >[id number], AFP unremarkable ID consultation-recommended meropenem, recommended pancreatic mass biopsy and consideration of ERCP Follow up with the stool culture, stool WBC, ova and parasite and blood culture Continue IV iron supplementation Diet as tolerated Diabetic education Protonix 40 mg p.o. daily Plan discussed with patient, patient's son at bedside in which all questions have been answered Case discussed with Dr. Bhandari Plan discussed with: Patient My Orders My Orders Orders - GEN TRAN Procedure Category Date Status Time *Rn Operations Support Representative REFER 07/03/25 Transmitted Referral 10:00 Provide Diabetic ORDERS 07/03/25 Transmitted Education 10:00 Lisinopril Tablet PHA 07/03/25 In Process (Zestril Tablet) 10:00 GEN TRAN Jul 03, 2025 18:17
[2025-07-04] VITALS (7 sets, daily range): BP systolic 115–151; BP diastolic 71–89; PULSE 61–71; RESP 16–19; TEMP 96.9–98.4; O2SAT 97–100
--- NOTE | 2025-07-04 11:27 | DVHPN2 ---
Progress Note - Dictate Date Seen: Jul 04, 2025 Medical Necessity Reason Pt with a Central, PICC or Fol: No vital signs Vital Sign Date Time Temp Pulse Resp B/P (MAP) Pulse Ox O2 Delivery O2 Flow Rate FiO2 07/04/25 09:15 145/84 07/04/25 09:00 97.3 62 17 99 97.3 07/03/25 20:00 Room Air* 0 21 Total Intake and Output 07/03/25 07/03/25 07/04/25 15:00 23:00 07:00 Intake Total 50 ml 1920 ml 1100 ml Balance 50 ml 1920 ml 1100 ml medications Current Medications Medications Dose Ordered Sig/Valery Route Start Time Stop Time Status Last Admin Dose Admin Sodium Chloride 1,000 ml @ 120 mls/hr Q8H20M IV 07/01/25 18:15 07/04/25 04:35 120 MLS/HR Acetaminophen/ Hydrocodone Bitart 1 tab Q4HP PRN PO 07/01/25 18:15 07/04/25 05:14 1 TAB Enoxaparin Sodium 40 mg DAILY SC 07/02/25 10:00 07/04/25 09:14 40 MG Acetaminophen 650 mg Q6HP PRN PO 07/01/25 18:15 07/02/25 20:11 650 MG Nitroglycerin 0.4 mg Q5MINP PRN SL 07/01/25 18:15 Morphine Sulfate 2 mg Q30M PRN IV 07/01/25 18:15 Morphine Sulfate 4 mg Q4HPRN PRN IV 07/01/25 18:15 07/03/25 21:38 4 MG Pantoprazole Sodium 40 mg DAILY IV 07/02/25 10:00 07/04/25 09:14 40 MG Allopurinol 100 mg DAILY PO 07/02/25 10:00 07/04/25 09:15 100 MG Atorvastatin Calcium 20 mg DAILY PO 07/02/25 10:00 07/02/25 09:21 20 MG Diagnostic Test (Pha) 1 strip ACHS 07/01/25 22:00 07/04/25 11:19 1 STRIP Insulin Human Regular ACHS SC 07/01/25 22:00 07/04/25 06:04 3 UNITS Dextrose 50 ml UD PRN IV 07/01/25 19:15 Iron Sucrose 110 ml @ 110 mls/hr DAILY@1200 IV 07/03/25 12:00 07/07/25 11:59 Hold Lisinopril 10 mg DAILY PO 07/03/25 10:00 07/04/25 09:15 10 MG Meropenem 50 ml @ 17 mls/hr Q8HR IV 07/03/25 14:00 07/04/25 05:07 17 MLS/HR objective General Appearance: alert, no distress HEENT: EOMI, PERRLA, normal external inspect of ears, no icterus, no nasal drainage Neck: no carotid bruit, no jugular venous distention (JVD), no lymphadenopathy Chest: normal thorax Respiratory: clear to auscultation, normal air movement Cardiovascular: regular rate and rhythm, no diastolic murmur, no jugular venous distention (JVD), no rub, no systolic murmur Abdominal: soft, no hepatomegaly, no mass, no splenomegaly, no tenderness Musculoskeletal: no joint tenderness, no swelling Extremities: normal pulses, no calf tenderness, no clubbing, no cyanosis, no edema Skin: no bruising, no jaundice, no rash Neurological: alert, No focal deficit laboratory and microbiology Laboratory Tests 07/03/25 11:02 Test 07/03/25 11:02 Range/Units Serum Glucose 101 74-106 mg/dL Problem List Acute Pancreatitis Assessment: Patient presents with acute abdominal pain in the setting of recent travel to [facility]. Clinical presentation and evaluation support diagnosis of acute pancreatitis requiring inpatient management. Plan: - Admit to hospital - IV fluid administration - GI consultation - Pain medications as needed - NPO status - PPI therapy - DVT prophylaxis Morbid Obesity Assessment: Patient has morbid obesity requiring lifestyle modification interventions. Plan: - Advised to exercise Anemia Assessment: Patient has anemia requiring monitoring. Plan: - Monitor Hyperlipidemia Assessment: Patient has hyperlipidemia requiring continued statin therapy. Plan: - Resume atorvastatin 20 mg Gout Assessment: Patient has gout requiring continued uric acid lowering therapy. Plan: - Resume allopurinol 100 mg daily New onset type 2 diabetes Plan: Labs, medications, diet, monitoring Pancreatic mass Plan: GI consult Liver lesions Plan: GI consult Assessment/Plan Subjective Patient is awake and alert. Objective I spoke with patient's son who acted as motor vehicle parts interpreter. Patient was admitted for abdominal pain. Patient states he had a recent visit to [facility] and he was treated for typhoid fever. Patient reports a 12 pound weight loss. He is a current smoker. Patient was found to have a pancreatic head mass 3.3 x 3.7 cm which was suspicious for pancreatic adenocarcinoma possible mets to the liver. Patient has a fluid most likely infected peripancreatic fluid collection. Patient was seen by infectious disease and GI. CT imaging shows altered perfusion of the liver with possible occlusion of the portal confluence. Patient will need a higher level of care for EUS and ERCP. Patient's CA 199 was elevated at 49,000. Patient's lipase level was 86. Plan Continue current treatment. Continue antiemetics and IV hydration. Consult social service agency director for higher level of care. Plan discussed with: Patient, Other SIMONA FRANKLIN NP Jul 04, 2025 11:27
[2025-07-04 12:44] LABS: Alanine Aminotransferase 20 U/L (7-40); Albumin 3.2 g/dL (3.2-4.8); Alkaline Phosphatase 67 U/L (46-116); Anion Gap 10 (5-15); BUN/Creatinine Ratio 13.5 (10.0-20.0); Bilirubin, Total 0.6 mg/dL (0.2-1.0); Carbon Dioxide 22 mmol/L (20-31); Glucose 92 mg/dL (74-106); Sodium 143 mmol/L (136-145); Total Protein 5.8 g/dL (5.7-8.2)
[2025-07-04 12:47] LABS: Blood Urea Nitrogen 7 mg/dL (9-23); Calcium 7.4 mg/dL (8.7-10.4); Chloride 111 mmol/L (98-107); Lipase 132 U/L (12-53); Potassium 3.0 mmol/L (3.5-5.1)
[2025-07-04] MEDS: POLYETHYLENE GLYCOL 17 GM PWDR PO ONE (13:41)
[2025-07-04] MEDS: POTASSIUM CHL 20 Meq TABLET PO ONE (14:35)
[2025-07-04 15:20] LABS: Hepatitis A Total Antibody Positive (Negative)
[2025-07-04 15:21] LABS: Hepatitis B Surface Antigen Negative (Negative); Hepatitis C Antibody Negative (Negative)
--- NOTE | 2025-07-04 17:53 | DVHPN2 ---
Progress Note Date Seen: Jul 04, 2025 Resident Creating Document: GEN TRAN RESIDENT Medical Necessity Reason Pt with a Central, PICC or Fol: No Subjective Review of Systems 70-year-old male who recently travel to [facility] presents to the ER with a chief complaint of abdominal pain and diarrhea for the past 1 month. Patient recently visited [facility] with his where he was diagnosed with typhoid fever after having abdominal pain. He received some medication but does not remember the name. Patient never has had EGD/colonoscopy. Patient reports eating and trying new food, developed abdominal pain, across the lower abdomen, nonradiating, along with the episodes of diarrhea nonbloody for the past month. He says that his did not try the food and did not get sick. Also reports 12 lb weight loss in the past month. Past medical/surgical history: Anemia Social history: Lives with nina, smokes 3 cigarettes-previously half a pack a day for the past 20 years, drinks socially 07/02-Patient seen and examined. IR consulted for IR guided liver biopsy. 07/03-Patient seen and examined. Had a bowel movement. Denies any abdominal symptoms. 07/04-patient seen and examined, no symptoms. Spoke to [facility], willing to accept on Wednesday for EUS. Objective vital signs Vital Sign Date Time Temp Pulse Resp B/P (MAP) Pulse Ox O2 Delivery O2 Flow Rate FiO2 07/04/25 16:38 97.5 71 19 151/87 (108) 99 97.5 07/04/25 08:10 Room Air* 0 21 Total Intake and Output 07/03/25 07/03/25 07/04/25 15:00 23:00 07:00 Intake Total 50 ml 1920 ml 1100 ml Balance 50 ml 1920 ml 1100 ml medications Current Medications Medications Dose Ordered Sig/Valery Route Start Time Stop Time Status Last Admin Dose Admin Sodium Chloride 1,000 ml @ 120 mls/hr Q8H20M IV 07/01/25 18:15 07/04/25 13:42 120 MLS/HR Acetaminophen/ Hydrocodone Bitart 1 tab Q4HP PRN PO 07/01/25 18:15 07/04/25 05:14 1 TAB Enoxaparin Sodium 40 mg DAILY SC 07/02/25 10:00 07/04/25 09:14 40 MG Acetaminophen 650 mg Q6HP PRN PO 07/01/25 18:15 07/02/25 20:11 650 MG Nitroglycerin 0.4 mg Q5MINP PRN SL 07/01/25 18:15 Morphine Sulfate 2 mg Q30M PRN IV 07/01/25 18:15 Morphine Sulfate 4 mg Q4HPRN PRN IV 07/01/25 18:15 07/03/25 21:38 4 MG Pantoprazole Sodium 40 mg DAILY IV 07/02/25 10:00 07/04/25 09:14 40 MG Allopurinol 100 mg DAILY PO 07/02/25 10:00 07/04/25 09:15 100 MG Atorvastatin Calcium 20 mg DAILY PO 07/02/25 10:00 07/04/25 09:15 20 MG Diagnostic Test (Pha) 1 strip ACHS 07/01/25 22:00 07/04/25 11:19 1 STRIP Insulin Human Regular ACHS SC 07/01/25 22:00 07/04/25 06:04 3 UNITS Dextrose 50 ml UD PRN IV 07/01/25 19:15 Iron Sucrose 110 ml @ 110 mls/hr DAILY@1200 IV 07/03/25 12:00 07/07/25 11:59 Hold Lisinopril 10 mg DAILY PO 07/03/25 10:00 07/04/25 09:15 10 MG Meropenem 50 ml @ 17 mls/hr Q8HR IV 07/03/25 14:00 07/04/25 13:41 17 MLS/HR Polyethylene Glycol 17 gm DAILY PO 07/05/25 10:00 Examination Patient lying in bed, in no acute distress General: Cachectic, afebrile, palor, mucosae are moist Cardiovascular: Regular S1 and S2. No murmurs, gallops or rubs. No JVD elevation. No pedal edema Respiratory: Normal B/L air entry on room air. Clear lung sounds on auscultation Abdomen: Soft, nontender, nondistended, normoactive bowel sounds, no rebound tenderness, no organomegaly, no masses. Abdomen has multiple chronic dark spots Genitourinary: Deferred MSK/skin: Mobilizes 4 limbs. Skin is dry and warm Neurological: No motor, no sensitive deficits, normal speech. Pupils are isocoric and reactive. Psych/Mental Status: A/Ox3 laboratory and microbiology Laboratory Tests 07/04/25 11:55 07/03/25 11:02 Test 07/04/25 11:55 Range/Units Serum Glucose 92 74-106 mg/dL Microbiology Date/Time Source Procedure Growth Status 07/01/25 18:39 Blood Blood Culture - Preliminary NO GROWTH AFTER 48 HOURS OF INCUBATION. Resulted Labs and/or images reviewed: Labs reviewed by me, Image(s) reviewed by me Problem List/Assessment/Plan Problem List/Assessment/Plan ? Probable Pancreatic adenocarcinoma ? Probable Liver metastasis Acute pancreatitis with peripancreatic fluid collection Anemia likely microcytic Iron-deficiency anemia New onset diabetes mellitus type 2-A1c 8.9 Transaminitis ? Recent history of typhoid fever-recent travel to [facility] CT abdomen with IV contrast shows Significant abnormal pancreatic head mass measuring 3.3 x 3.7 cm most likely compatible with pancreatic adenocarcinoma. Altered perfusion of the liver with question occlusion of the portal confluence close proximity to the pancreatic head mass [LIVER]: Extensive heterogeneous areas of hypoenhancement with extensive oval- shaped hypoattenuating lesion some which demonstrate significant peripheral enhancement highly concerning for metastatic disease. Characteristic lesion in the right inferior hepatic lobe, hepatic segment 5/6 measures 1.7 cm ESR 22 CRP Serum CK 33 CA 19 9 >49,000 AFP pending Plan: Recommendation: Dr. Bhandari H&H stable. No acute symptoms. Per radiologist, given the acute pancreatitis, liver biopsy is a high-risk procedure and to be done as outpatient. Radiologist recommended oncology consultation. Recommend higher level of care for EUS/ERCP, otherwise urgent outpatient follow up with the IR and oncology CA 19-9 >[id number], AFP unremarkable ID consultation-recommended meropenem, recommended pancreatic mass biopsy and consideration of ERCP Spoke to [facility], willing to accept on Wednesday for EUS. Follow up with the stool culture, stool WBC, ova and parasite and blood culture Continue IV iron supplementation Diet as tolerated Diabetic education Protonix 40 mg p.o. daily Plan discussed with patient, patient's son at bedside in which all questions have been answered Case discussed with Dr. Bhandari Plan discussed with: Patient GEN TRAN RESIDENT Jul 04, 2025 17:53
[2025-07-04] MEDS: DOCUSATE SOD 100 MG CAP PO ONE (21:28)
[2025-07-05] VITALS (8 sets, daily range): BP systolic 118–161; BP diastolic 72–85; PULSE 63–78; RESP 14–17; TEMP 97.5–98.5; O2SAT 96–100
--- NOTE | 2025-07-05 10:37 | DVHPN2 ---
Progress Note - Dictate Date Seen: Jul 05, 2025 Medical Necessity Reason Pt with a Central, PICC or Fol: No Subjective Patient states doing well, feels better with IV abx, abdominal pain has improved. vital signs Vital Sign Date Time Temp Pulse Resp B/P (MAP) Pulse Ox O2 Delivery O2 Flow Rate FiO2 07/05/25 09:00 98.1 64 14 130/80 (97) 100 98.1 07/05/25 08:00 Room Air* 0 21 Total Intake and Output 07/04/25 07/04/25 07/05/25 15:00 23:00 07:00 Intake Total 1970 ml 605 ml Balance 1970 ml 605 ml medications Current Medications Medications Dose Ordered Sig/Valery Route Start Time Stop Time Status Last Admin Dose Admin Sodium Chloride 1,000 ml @ 120 mls/hr Q8H20M IV 07/01/25 18:15 07/05/25 06:40 120 MLS/HR Acetaminophen/ Hydrocodone Bitart 1 tab Q4HP PRN PO 07/01/25 18:15 07/05/25 01:15 1 TAB Enoxaparin Sodium 40 mg DAILY SC 07/02/25 10:00 07/04/25 09:14 40 MG Acetaminophen 650 mg Q6HP PRN PO 07/01/25 18:15 07/02/25 20:11 650 MG Nitroglycerin 0.4 mg Q5MINP PRN SL 07/01/25 18:15 Morphine Sulfate 2 mg Q30M PRN IV 07/01/25 18:15 Morphine Sulfate 4 mg Q4HPRN PRN IV 07/01/25 18:15 07/03/25 21:38 4 MG Pantoprazole Sodium 40 mg DAILY IV 07/02/25 10:00 07/04/25 09:14 40 MG Allopurinol 100 mg DAILY PO 07/02/25 10:00 07/04/25 09:15 100 MG Atorvastatin Calcium 20 mg DAILY PO 07/02/25 10:00 07/04/25 09:15 20 MG Diagnostic Test (Pha) 1 strip ACHS 07/01/25 22:00 07/05/25 06:43 1 STRIP Insulin Human Regular ACHS SC 07/01/25 22:00 07/04/25 21:27 2 UNITS Dextrose 50 ml UD PRN IV 07/01/25 19:15 Iron Sucrose 110 ml @ 110 mls/hr DAILY@1200 IV 07/03/25 12:00 07/07/25 11:59 Hold Lisinopril 10 mg DAILY PO 07/03/25 10:00 07/04/25 09:15 10 MG Meropenem 50 ml @ 17 mls/hr Q8HR IV 07/03/25 14:00 07/05/25 06:37 17 MLS/HR Polyethylene Glycol 17 gm DAILY PO 07/05/25 10:00 objective General Appearance: alert, no distress HEENT: EOMI, PERRLA, normal external inspect of ears, no icterus, no nasal drainage Neck: no carotid bruit, no jugular venous distention (JVD), no lymphadenopathy Chest: normal thorax Respiratory: clear to auscultation, normal air movement Cardiovascular: regular rate and rhythm, no diastolic murmur, no jugular venous distention (JVD), no rub, no systolic murmur Abdominal: soft, no hepatomegaly, no mass, no splenomegaly, no tenderness Musculoskeletal: no joint tenderness, no swelling Extremities: normal pulses, no calf tenderness, no clubbing, no cyanosis, no edema Skin: no bruising, no jaundice, no rash Neurological: alert, No focal deficit laboratory and microbiology Laboratory Tests 07/04/25 11:55 07/03/25 11:02 Test 07/04/25 11:55 Range/Units Serum Glucose 92 74-106 mg/dL Problem List Acute Pancreatitis Assessment: Patient presents with acute abdominal pain in the setting of recent travel to [facility]. Clinical presentation and evaluation support diagnosis of acute pancreatitis requiring inpatient management. Plan: - Admit to hospital - IV fluid administration - GI consultation - Pain medications as needed - NPO status - PPI therapy - DVT prophylaxis Morbid Obesity Assessment: Patient has morbid obesity requiring lifestyle modification interventions. Plan: - Advised to exercise Anemia Assessment: Patient has anemia requiring monitoring. Plan: - Monitor Hyperlipidemia Assessment: Patient has hyperlipidemia requiring continued statin therapy. Plan: - Resume atorvastatin 20 mg Gout Assessment: Patient has gout requiring continued uric acid lowering therapy. Plan: - Resume allopurinol 100 mg daily New onset type 2 diabetes Plan: Labs, medications, diet, monitoring Pancreatic mass Plan: GI consult Liver lesions Plan: GI consult Assessment/Plan Subjective Patient is awake and alert. Objective Patient states he had a recent visit to [facility] and he was treated for typhoid fever. Patient reports a 12 pound weight loss. He is a current smoker. Patient was found to have a pancreatic head mass 3.3 x 3.7 cm which was suspicious for pancreatic adenocarcinoma possible mets to the liver. Patient has peripancreatic fluid collection, possibly infected. Patient was seen by infectious disease and GI. CT imaging shows altered perfusion of the liver with possible occlusion of the portal confluence. Patient will need a higher level of care for EUS and ERCP. Patient's CA 199 was elevated at 49,000. Patient's lipase level was 86. Plan Continue current treatment. Continue antiemetics and IV hydration. Consult child protective services social worker for higher level of care. Patient accepted by [facility] for EUS. Plan to transfer on Wednesday. Plan discussed with: Patient Total Time (mins): 30 SIMONA FRANKLIN NP Jul 05, 2025 10:37
[2025-07-05] MEDS: POLYETHYLENE GLYCOL 17 GM PWDR PO SCH (10:48)
[2025-07-05 11:53] LABS: Hemoglobin 10.6 g/dL (13.5-17.5); Nucleated Red Blood Cells % 0.1 %
[2025-07-05 11:54] LABS: Hematocrit 31.9 % (41.0-53.0); Mean Corpuscular Hemoglobin 21.0 pg (28.0-32.0); Mean Corpuscular Volume 63.1 fL (80.0-100.0)
[2025-07-05 12:08] LABS: INR 1.06 (0.9-1.15); Prothrombin Time 11.2 sec (9.3-11.8)
[2025-07-05 12:10] LABS: Alanine Aminotransferase 38 U/L (7-40); Albumin 4.2 g/dL (3.2-4.8); Alkaline Phosphatase 95 U/L (46-116); Anion Gap 10 (5-15); BUN/Creatinine Ratio 8.2 (10.0-20.0); Calcium 9.4 mg/dL (8.7-10.4); Carbon Dioxide 27 mmol/L (20-31); Chloride 102 mmol/L (98-107); Potassium 3.9 mmol/L (3.5-5.1); Sodium 139 mmol/L (136-145); Total Protein 7.1 g/dL (5.7-8.2)
[2025-07-05 12:11] LABS: Bilirubin, Total 0.9 mg/dL (0.2-1.0)
[2025-07-05 12:12] LABS: Blood Urea Nitrogen 7 mg/dL (9-23); Glucose 178 mg/dL (74-106)
--- NOTE | 2025-07-05 14:33 | DVHPN2 ---
Progress Note Date Seen: Jul 05, 2025 Resident Creating Document: GEN TRAN RESIDENT Medical Necessity Reason Pt with a Central, PICC or Fol: No Subjective Review of Systems 70-year-old male who recently travel to [facility] presents to the ER with a chief complaint of abdominal pain and diarrhea for the past 1 month. Patient recently visited [facility] with his where he was diagnosed with typhoid fever after having abdominal pain. He received some medication but does not remember the name. Patient never has had EGD/colonoscopy. Patient reports eating and trying new food, developed abdominal pain, across the lower abdomen, nonradiating, along with the episodes of diarrhea nonbloody for the past month. He says that his did not try the food and did not get sick. Also reports 12 lb weight loss in the past month. Past medical/surgical history: Anemia Social history: Lives with nina, smokes 3 cigarettes-previously half a pack a day for the past 20 years, drinks socially 07/02-Patient seen and examined. IR consulted for IR guided liver biopsy. 07/03-Patient seen and examined. Had a bowel movement. Denies any abdominal symptoms. 07/04-patient seen and examined, no symptoms. Spoke to [facility], willing to accept on Wednesday for EUS. 07/05 - no acute complaint, had a bm Objective vital signs Vital Sign Date Time Temp Pulse Resp B/P (MAP) Pulse Ox O2 Delivery O2 Flow Rate FiO2 07/05/25 13:00 98.4 65 16 133/80 (97) 96 98.4 07/05/25 08:00 Room Air* 0 21 Total Intake and Output 07/04/25 07/04/25 07/05/25 15:00 23:00 07:00 Intake Total 1970 ml 605 ml Balance 1970 ml 605 ml medications Current Medications Medications Dose Ordered Sig/Valery Route Start Time Stop Time Status Last Admin Dose Admin Sodium Chloride 1,000 ml @ 120 mls/hr Q8H20M IV 07/01/25 18:15 07/05/25 12:01 120 MLS/HR Acetaminophen/ Hydrocodone Bitart 1 tab Q4HP PRN PO 07/01/25 18:15 07/05/25 10:44 1 TAB Enoxaparin Sodium 40 mg DAILY SC 07/02/25 10:00 07/05/25 10:45 40 MG Acetaminophen 650 mg Q6HP PRN PO 07/01/25 18:15 07/02/25 20:11 650 MG Nitroglycerin 0.4 mg Q5MINP PRN SL 07/01/25 18:15 Morphine Sulfate 2 mg Q30M PRN IV 07/01/25 18:15 Morphine Sulfate 4 mg Q4HPRN PRN IV 07/01/25 18:15 07/03/25 21:38 4 MG Pantoprazole Sodium 40 mg DAILY IV 07/02/25 10:00 07/05/25 10:45 40 MG Allopurinol 100 mg DAILY PO 07/02/25 10:00 07/05/25 10:45 100 MG Atorvastatin Calcium 20 mg DAILY PO 07/02/25 10:00 07/05/25 10:44 20 MG Diagnostic Test (Pha) 1 strip ACHS 07/01/25 22:00 07/05/25 12:00 1 STRIP Insulin Human Regular ACHS SC 07/01/25 22:00 07/05/25 12:00 3 UNITS Dextrose 50 ml UD PRN IV 07/01/25 19:15 Lisinopril 10 mg DAILY PO 07/03/25 10:00 07/05/25 10:43 10 MG Meropenem 50 ml @ 17 mls/hr Q8HR IV 07/03/25 14:00 07/05/25 06:37 17 MLS/HR Polyethylene Glycol 17 gm DAILY PO 07/05/25 10:00 07/05/25 10:48 17 GM Examination Patient lying in bed, in no acute distress General: Cachectic, afebrile, palor, mucosae are moist Cardiovascular: Regular S1 and S2. No murmurs, gallops or rubs. No JVD elevation. No pedal edema Respiratory: Normal B/L air entry on room air. Clear lung sounds on auscultation Abdomen: Soft, nontender, nondistended, normoactive bowel sounds, no rebound tenderness, no organomegaly, no masses. Abdomen has multiple chronic dark spots Genitourinary: Deferred MSK/skin: Mobilizes 4 limbs. Skin is dry and warm Neurological: No motor, no sensitive deficits, normal speech. Pupils are isocoric and reactive. Psych/Mental Status: A/Ox3 laboratory and microbiology Laboratory Tests 07/05/25 11:34 Test 07/05/25 11:34 Range/Units Serum Glucose 178 H 74-106 mg/dL Microbiology Date/Time Source Procedure Growth Status 07/01/25 18:39 Blood Blood Culture - Preliminary NO GROWTH AFTER 72 HOURS OF INCUBATION. Resulted Labs and/or images reviewed: Labs reviewed by me, Image(s) reviewed by me Problem List/Assessment/Plan Problem List/Assessment/Plan ? Probable Pancreatic adenocarcinoma ? Probable Liver metastasis Acute pancreatitis with peripancreatic fluid collection Anemia likely microcytic Iron-deficiency anemia New onset diabetes mellitus type 2-A1c 8.9 Transaminitis ? Recent history of typhoid fever-recent travel to [facility] CT abdomen with IV contrast shows Significant abnormal pancreatic head mass measuring 3.3 x 3.7 cm most likely compatible with pancreatic adenocarcinoma. Altered perfusion of the liver with question occlusion of the portal confluence close proximity to the pancreatic head mass [LIVER]: Extensive heterogeneous areas of hypoenhancement with extensive oval- shaped hypoattenuating lesion some which demonstrate significant peripheral enhancement highly concerning for metastatic disease. Characteristic lesion in the right inferior hepatic lobe, hepatic segment 5/6 measures 1.7 cm ESR 22 CRP Serum CK 33 CA 19 9 >49,000 AFP pending Plan: Recommendation: Dr. Bhandari H&H stable. No acute symptoms. Per radiologist, given the acute pancreatitis, liver biopsy is a high-risk procedure and to be done as outpatient. Radiologist recommended oncology consultation. Recommend higher level of care for EUS/ERCP, otherwise urgent outpatient follow up with the IR and oncology CA 19-9 >[id number], AFP unremarkable ID consultation-recommended meropenem, recommended pancreatic mass biopsy and consideration of ERCP Spoke to [facility] Dr Ko, willing to accept on Wednesday for EUS. Stool ebc negative, stool occult negative Continue IV iron supplementation Diet as tolerated Diabetic education Protonix 40 mg p.o. daily Plan discussed with patient, patient's son at bedside in which all questions have been answered Case discussed with Dr. Bhandari Plan discussed with: Patient GEN TRAN RESIDENT Jul 05, 2025 14:33
[2025-07-05] MEDS: IRON SUCROSE COMPLEX 110 ML IV SCH (15:40)
--- NOTE | 2025-07-05 17:42 | DVHPN2 ---
Consult Progress Note Date Seen: Jul 04, 2025 Subjective Patient reports: Feels better (ongoing abd pain, no diarrhea) Objective vital signs Vital Sign Date Time Temp Pulse Resp B/P (MAP) Pulse Ox O2 Delivery O2 Flow Rate FiO2 07/05/25 13:00 98.4 65 16 133/80 (97) 96 98.4 07/05/25 08:00 Room Air* 0 21 Total Intake and Output 07/04/25 07/04/25 07/05/25 15:00 23:00 07:00 Intake Total 1970 ml 605 ml Balance 1970 ml 605 ml medications Current Medications Medications Dose Ordered Sig/Valery Route Start Time Stop Time Status Last Admin Dose Admin Sodium Chloride 1,000 ml @ 120 mls/hr Q8H20M IV 07/01/25 18:15 07/05/25 12:01 120 MLS/HR Acetaminophen/ Hydrocodone Bitart 1 tab Q4HP PRN PO 07/01/25 18:15 07/05/25 17:35 1 TAB Enoxaparin Sodium 40 mg DAILY SC 07/02/25 10:00 07/05/25 10:45 40 MG Acetaminophen 650 mg Q6HP PRN PO 07/01/25 18:15 07/02/25 20:11 650 MG Nitroglycerin 0.4 mg Q5MINP PRN SL 07/01/25 18:15 Morphine Sulfate 2 mg Q30M PRN IV 07/01/25 18:15 Morphine Sulfate 4 mg Q4HPRN PRN IV 07/01/25 18:15 07/03/25 21:38 4 MG Pantoprazole Sodium 40 mg DAILY IV 07/02/25 10:00 07/05/25 10:45 40 MG Allopurinol 100 mg DAILY PO 07/02/25 10:00 07/05/25 10:45 100 MG Atorvastatin Calcium 20 mg DAILY PO 07/02/25 10:00 07/05/25 10:44 20 MG Diagnostic Test (Pha) 1 strip ACHS 07/01/25 22:00 07/05/25 17:33 1 STRIP Insulin Human Regular ACHS SC 07/01/25 22:00 07/05/25 17:33 4 UNITS Dextrose 50 ml UD PRN IV 07/01/25 19:15 Lisinopril 10 mg DAILY PO 07/03/25 10:00 07/05/25 10:43 10 MG Meropenem 50 ml @ 17 mls/hr Q8HR IV 07/03/25 14:00 07/05/25 17:21 17 MLS/HR Polyethylene Glycol 17 gm DAILY PO 07/05/25 10:00 07/05/25 10:48 17 GM Iron Sucrose 110 ml @ 110 mls/hr DAILY@1200 IV 07/05/25 14:45 07/09/25 14:44 07/05/25 15:40 110 MLS/HR laboratory and microbiology Laboratory Tests 07/05/25 11:34 Test 07/05/25 11:34 Range/Units Serum Glucose 178 H 74-106 mg/dL Problem List/Assessment/Plan Problem List/Assessment/Plan ASSESSMENT AND PLAN: ID Problem List: -Acute pancreatitis -Pancreatic head mass (CT suggests probable pancreatic adenocarcinoma) -Extensive hepatic lesions suspicious for metastases; ascites -Large multiloculated peripancreatic fluid collection (tail) 6.6 cm; possible infected peripancreatic fluid collection -Diarrhea x ~1 month -Recent travel to [facility] without prior vaccinations -Morbid obesity -Anemia -Hyperlipidemia -Gout Assessment This is a 70 y.o. male with morbid obesity, anemia, hyperlipidemia, and gout presenting with 1 month of acute abdominal pain and diarrhea after recent travel to [facility] (no prior vaccinations). On arrival he had a mildly distended abdomen with diffuse tenderness. Initial labs notable for WBC ~9.8, Hgb 12.4, Plt 254; UA without pyuria; lipase 86; creatinine 1.02; BUN 9. Subsequent labs in transcript are internally inconsistent: WBC 9.4; hemoglobin is 4.4; decreased to 10.6; platelets 224. CT A/P (non-contrast) showed acute pancreatitis with a 6.6 cm multiloculated collection adjacent to the pancreatic tail and small-volume ascites. Contrast CT showed a pancreatic head mass (~3.3 ~3.0 cm; second dimension partially unclear in transcript) most compatible with pancreatic adenocarcinoma; altered liver perfusion with questionable occlusion of the portal confluence near the mass; extensive peripancreatic fluid collections with enhancement possibly compatible with infected collection; and multiple hepatic lesions with peripheral enhancement highly concerning for metastatic disease. Blood cultures reported as no growth to date in the transcript. 07/04: stool culture negative Plan: \-- continue meropenem empirically for possible infected/necrotic peripancreatic fluid collection in the setting of acute inflammation; \-- GI consultation for tissue diagnosis of pancreatic mass (biopsy) and consideration of ERCP, consider/agree with HLOC \-- Follow up blood cultures (no growth to date per transcript) and any additional cultures \-- Given recent travel and ongoing diarrhea, send stool studies (culture and additional pathogen testing as indicated) to evaluate for coexisting infectious diarrhea; clinical suspicion currently low per transcript \-- Defer comprehensive management of acute pancreatitis and abdominal pain to the primary team \-- Medication reconciliation: patient reports no home medications \-- Allergies: no known drug allergies Isolation Precautions: standard Assessment and plan was discussed with the patient as written above Plan is subject to change pending incorporation of new incoming information/diagnostics. Updates may be added as addendum at the bottom (OR TOP) of this note Thank you for interesting consult. ID will continue to follow. Please contact Infectious Disease for any questions or concerns. Prema Mckeon M.D. [facility] Ph: ? Teams text: [email or web address] _ _ Physical Exam: General: NAD Neck: Supple. No masses. HEENT: PERRL. Normal lids and conjunctiva. Moist mucous membranes. Oropharynx without lesions, exudates or excessive erythema. Normal appearance of the external aspects of the nose and ears. Heart: Regular rhythm, normal rate. No murmur. No lower extremity edema. Lungs: Normal respiratory effort. Clear to auscultation bilaterally. No wheezes. No crackles. Abdomen: Soft. Mildly distended. Diffusely tender to palpation. No masses or abdominal hernia noted in transcript. Msk: No digital cyanosis. Normal strength and tone in all 4 limbs. Skin: Warm and dry, no rashes. Neuro: Alert. No facial droop or slurred speech. Extra-ocular movements intact. Sensation intact to soft touch in all 4 limbs. Psych: Appropriate mood. Full affect. Oriented to person, place, time, and situation. Plan discussed with: Patient PREMA MCKEON MD Jul 05, 2025 17:42
--- NOTE | 2025-07-05 17:48 | DVHPN2 ---
Consult Progress Note Date Seen: Jul 05, 2025 Subjective Patient reports: Feels better (ongoing loose stools/diarrhea) Objective vital signs Vital Sign Date Time Temp Pulse Resp B/P (MAP) Pulse Ox O2 Delivery O2 Flow Rate FiO2 07/05/25 13:00 98.4 65 16 133/80 (97) 96 98.4 07/05/25 08:00 Room Air* 0 21 Total Intake and Output 07/04/25 07/04/25 07/05/25 15:00 23:00 07:00 Intake Total 1970 ml 605 ml Balance 1970 ml 605 ml medications Current Medications Medications Dose Ordered Sig/Valery Route Start Time Stop Time Status Last Admin Dose Admin Sodium Chloride 1,000 ml @ 120 mls/hr Q8H20M IV 07/01/25 18:15 07/05/25 12:01 120 MLS/HR Acetaminophen/ Hydrocodone Bitart 1 tab Q4HP PRN PO 07/01/25 18:15 07/05/25 17:35 1 TAB Enoxaparin Sodium 40 mg DAILY SC 07/02/25 10:00 07/05/25 10:45 40 MG Acetaminophen 650 mg Q6HP PRN PO 07/01/25 18:15 07/02/25 20:11 650 MG Nitroglycerin 0.4 mg Q5MINP PRN SL 07/01/25 18:15 Morphine Sulfate 2 mg Q30M PRN IV 07/01/25 18:15 Morphine Sulfate 4 mg Q4HPRN PRN IV 07/01/25 18:15 07/03/25 21:38 4 MG Pantoprazole Sodium 40 mg DAILY IV 07/02/25 10:00 07/05/25 10:45 40 MG Allopurinol 100 mg DAILY PO 07/02/25 10:00 07/05/25 10:45 100 MG Atorvastatin Calcium 20 mg DAILY PO 07/02/25 10:00 07/05/25 10:44 20 MG Diagnostic Test (Pha) 1 strip ACHS 07/01/25 22:00 07/05/25 17:33 1 STRIP Insulin Human Regular ACHS SC 07/01/25 22:00 07/05/25 17:33 4 UNITS Dextrose 50 ml UD PRN IV 07/01/25 19:15 Lisinopril 10 mg DAILY PO 07/03/25 10:00 07/05/25 10:43 10 MG Meropenem 50 ml @ 17 mls/hr Q8HR IV 07/03/25 14:00 07/05/25 17:21 17 MLS/HR Polyethylene Glycol 17 gm DAILY PO 07/05/25 10:00 07/05/25 10:48 17 GM Iron Sucrose 110 ml @ 110 mls/hr DAILY@1200 IV 07/05/25 14:45 07/09/25 14:44 07/05/25 15:40 110 MLS/HR laboratory and microbiology Laboratory Tests 07/05/25 11:34 Test 07/05/25 11:34 Range/Units Serum Glucose 178 H 74-106 mg/dL Problem List/Assessment/Plan Problem List/Assessment/Plan ASSESSMENT AND PLAN: ID Problem List: -Acute pancreatitis -Pancreatic head mass (CT suggests probable pancreatic adenocarcinoma) -Extensive hepatic lesions suspicious for metastases; ascites -Large multiloculated peripancreatic fluid collection (tail) 6.6 cm; possible infected peripancreatic fluid collection -Diarrhea x ~1 month -Recent travel to [facility] without prior vaccinations -Morbid obesity -Anemia -Hyperlipidemia -Gout Assessment This is a 70 y.o. male with morbid obesity, anemia, hyperlipidemia, and gout presenting with 1 month of acute abdominal pain and diarrhea after recent travel to [facility] (no prior vaccinations). On arrival he had a mildly distended abdomen with diffuse tenderness. Initial labs notable for WBC ~9.8, Hgb 12.4, Plt 254; UA without pyuria; lipase 86; creatinine 1.02; BUN 9. Subsequent labs in transcript are internally inconsistent: WBC 9.4; hemoglobin is 4.4; decreased to 10.6; platelets 224. CT A/P (non-contrast) showed acute pancreatitis with a 6.6 cm multiloculated collection adjacent to the pancreatic tail and small-volume ascites. Contrast CT showed a pancreatic head mass (~3.3 ~3.0 cm; second dimension partially unclear in transcript) most compatible with pancreatic adenocarcinoma; altered liver perfusion with questionable occlusion of the portal confluence near the mass; extensive peripancreatic fluid collections with enhancement possibly compatible with infected collection; and multiple hepatic lesions with peripheral enhancement highly concerning for metastatic disease. Blood cultures reported as no growth to date in the transcript. 07/04: stool culture negative Plan: -- defer to GI team for any pancreatic enzymes to assist w/ diarrhea -- check stool O&P x 3 and strongyloides \-- continue meropenem empirically for possible infected/necrotic peripancreatic fluid collection in the setting of acute inflammation; \-- GI consultation for tissue diagnosis of pancreatic mass (biopsy) and consideration of ERCP, consider/agree with HLOC \-- Follow up blood cultures (no growth to date per transcript) and any additional cultures \-- Given recent travel and ongoing diarrhea, send stool studies (culture and additional pathogen testing as indicated) to evaluate for coexisting infectious diarrhea; clinical suspicion currently low per transcript \-- Defer comprehensive management of acute pancreatitis and abdominal pain to the primary team \-- Medication reconciliation: patient reports no home medications \-- Allergies: no known drug allergies Isolation Precautions: standard Assessment and plan was discussed with the patient as written above Plan is subject to change pending incorporation of new incoming information/diagnostics. Updates may be added as addendum at the bottom (OR TOP) of this note Thank you for interesting consult. ID will continue to follow. Please contact Infectious Disease for any questions or concerns. Prema Mckeon M.D. [facility] Ph: ? Teams text: [email or web address] _ _ Physical Exam: General: NAD Neck: Supple. No masses. HEENT: PERRL. Normal lids and conjunctiva. Moist mucous membranes. Oropharynx without lesions, exudates or excessive erythema. Normal appearance of the external aspects of the nose and ears. Heart: Regular rhythm, normal rate. No murmur. No lower extremity edema. Lungs: Normal respiratory effort. Clear to auscultation bilaterally. No wheezes. No crackles. Abdomen: Soft. Mildly distended. Diffusely tender to palpation. No masses or abdominal hernia noted in transcript. Msk: No digital cyanosis. Normal strength and tone in all 4 limbs. Skin: Warm and dry, no rashes. Neuro: Alert. No facial droop or slurred speech. Extra-ocular movements intact. Sensation intact to soft touch in all 4 limbs. Psych: Appropriate mood. Full affect. Oriented to person, place, time, and situation. Plan discussed with: Patient PREMA MCKEON MD Jul 05, 2025 17:48
[2025-07-06] VITALS (7 sets, daily range): BP systolic 110–125; BP diastolic 64–78; PULSE 64–74; RESP 14–17; TEMP 98.1–99; O2SAT 18–100
--- NOTE | 2025-07-06 09:13 | DVHPN2 ---
Progress Note - Dictate Date Seen: Jul 06, 2025 Medical Necessity Reason Pt with a Central, PICC or Fol: No Subjective Patient states doing well, feels better with IV abx, abdominal pain has improved. vital signs Vital Sign Date Time Temp Pulse Resp B/P (MAP) Pulse Ox O2 Delivery O2 Flow Rate FiO2 07/06/25 05:00 98.6 69 16 113/69 (84) 97 98.6 07/05/25 20:00 Room Air* 0 21 Total Intake and Output 07/05/25 07/05/25 07/06/25 14:59 22:59 06:59 Intake Total 850 ml 470 ml Balance 850 ml 470 ml medications Current Medications Medications Dose Ordered Sig/Valery Route Start Time Stop Time Status Last Admin Dose Admin Sodium Chloride 1,000 ml @ 120 mls/hr Q8H20M IV 07/01/25 18:15 07/05/25 12:01 120 MLS/HR Acetaminophen/ Hydrocodone Bitart 1 tab Q4HP PRN PO 07/01/25 18:15 07/06/25 01:08 1 TAB Enoxaparin Sodium 40 mg DAILY SC 07/02/25 10:00 07/05/25 10:45 40 MG Acetaminophen 650 mg Q6HP PRN PO 07/01/25 18:15 07/02/25 20:11 650 MG Nitroglycerin 0.4 mg Q5MINP PRN SL 07/01/25 18:15 Morphine Sulfate 2 mg Q30M PRN IV 07/01/25 18:15 Morphine Sulfate 4 mg Q4HPRN PRN IV 07/01/25 18:15 07/05/25 22:05 4 MG Pantoprazole Sodium 40 mg DAILY IV 07/02/25 10:00 07/05/25 10:45 40 MG Allopurinol 100 mg DAILY PO 07/02/25 10:00 07/05/25 10:45 100 MG Atorvastatin Calcium 20 mg DAILY PO 07/02/25 10:00 07/05/25 10:44 20 MG Diagnostic Test (Pha) 1 strip ACHS 07/01/25 22:00 07/06/25 06:41 1 STRIP Insulin Human Regular ACHS SC 07/01/25 22:00 07/05/25 17:33 4 UNITS Dextrose 50 ml UD PRN IV 07/01/25 19:15 Lisinopril 10 mg DAILY PO 07/03/25 10:00 07/05/25 10:43 10 MG Meropenem 50 ml @ 17 mls/hr Q8HR IV 07/03/25 14:00 07/06/25 06:29 17 MLS/HR Polyethylene Glycol 17 gm DAILY PO 07/05/25 10:00 07/05/25 10:48 17 GM Iron Sucrose 110 ml @ 110 mls/hr DAILY@1200 IV 07/05/25 14:45 07/09/25 14:44 07/05/25 15:40 110 MLS/HR objective General Appearance: alert, no distress HEENT: EOMI, PERRLA, normal external inspect of ears, no icterus, no nasal drainage Neck: no carotid bruit, no jugular venous distention (JVD), no lymphadenopathy Chest: normal thorax Respiratory: clear to auscultation, normal air movement Cardiovascular: regular rate and rhythm, no diastolic murmur, no jugular venous distention (JVD), no rub, no systolic murmur Abdominal: soft, no hepatomegaly, no mass, no splenomegaly, no tenderness Musculoskeletal: no joint tenderness, no swelling Extremities: normal pulses, no calf tenderness, no clubbing, no cyanosis, no edema Skin: no bruising, no jaundice, no rash Neurological: alert, No focal deficit laboratory and microbiology Laboratory Tests 07/05/25 11:34 Test 07/05/25 11:34 Range/Units Serum Glucose 178 H 74-106 mg/dL Problem List Acute Pancreatitis Assessment: Patient presents with acute abdominal pain in the setting of recent travel to [facility]. Clinical presentation and evaluation support diagnosis of acute pancreatitis requiring inpatient management. Plan: - Admit to hospital - IV fluid administration - GI consultation - Pain medications as needed - NPO status - PPI therapy - DVT prophylaxis Morbid Obesity Assessment: Patient has morbid obesity requiring lifestyle modification interventions. Plan: - Advised to exercise Anemia Assessment: Patient has anemia requiring monitoring. Plan: - Monitor Hyperlipidemia Assessment: Patient has hyperlipidemia requiring continued statin therapy. Plan: - Resume atorvastatin 20 mg Gout Assessment: Patient has gout requiring continued uric acid lowering therapy. Plan: - Resume allopurinol 100 mg daily New onset type 2 diabetes Plan: Labs, medications, diet, monitoring Pancreatic mass Plan: GI consult Liver lesions Plan: GI consult Assessment/Plan Subjective: Patient is awake and alert. Objective: Patient was admitted for abdominal pain. Patient states he was recently in [facility]. He was diagnosed with typhoid fever. Patient found to have pancreatic mass with fluid collection. Most likely patient has adenocarcinoma of the pancreas. Patient also has possible obstruction. Patient will need to transfer to higher level of care. [facility] has accepted. Possible transfer plan for Wednesday. Patient will need an EUS and possible stent. Plan: Continue antibiotics. Continue as needed pain medication. Patient's diet was advanced and he is currently tolerating. Plan for transfer on Wednesday. Plan discussed with: Patient, Other SIMONA FRANKLIN NP Jul 06, 2025 09:13
--- NOTE | 2025-07-06 14:48 | DVHPN2 ---
Progress Note Date Seen: Jul 06, 2025 Resident Creating Document: GEN TRAN RESIDENT Medical Necessity Reason Pt with a Central, PICC or Fol: No Subjective Review of Systems 70-year-old male who recently travel to [facility] presents to the ER with a chief complaint of abdominal pain and diarrhea for the past 1 month. Patient recently visited [facility] with his where he was diagnosed with typhoid fever after having abdominal pain. He received some medication but does not remember the name. Patient never has had EGD/colonoscopy. Patient reports eating and trying new food, developed abdominal pain, across the lower abdomen, nonradiating, along with the episodes of diarrhea nonbloody for the past month. He says that his did not try the food and did not get sick. Also reports 12 lb weight loss in the past month. Past medical/surgical history: Anemia Social history: Lives with nina, smokes 3 cigarettes-previously half a pack a day for the past 20 years, drinks socially 07/02-Patient seen and examined. IR consulted for IR guided liver biopsy. 07/03-Patient seen and examined. Had a bowel movement. Denies any abdominal symptoms. 07/04-patient seen and examined, no symptoms. Spoke to [facility], willing to accept on Wednesday for EUS. 07/05 - no acute complaint, had a bm 07/06-no acute complaint. No bowel movement. Reports being constipated. Sounds normal. Lactulose daily Objective vital signs Vital Sign Date Time Temp Pulse Resp B/P (MAP) Pulse Ox O2 Delivery O2 Flow Rate FiO2 07/06/25 13:00 99.0 73 17 120/76 (91) 98 99.0 07/06/25 08:00 Room Air* 0 21 Total Intake and Output 07/05/25 07/05/25 07/06/25 15:00 23:00 07:00 Intake Total 850 ml 470 ml Balance 850 ml 470 ml medications Current Medications Medications Dose Ordered Sig/Valery Route Start Time Stop Time Status Last Admin Dose Admin Sodium Chloride 1,000 ml @ 120 mls/hr Q8H20M IV 07/01/25 18:15 07/05/25 12:01 120 MLS/HR Acetaminophen/ Hydrocodone Bitart 1 tab Q4HP PRN PO 07/01/25 18:15 07/06/25 01:08 1 TAB Enoxaparin Sodium 40 mg DAILY SC 07/02/25 10:00 07/06/25 10:00 40 MG Acetaminophen 650 mg Q6HP PRN PO 07/01/25 18:15 07/02/25 20:11 650 MG Nitroglycerin 0.4 mg Q5MINP PRN SL 07/01/25 18:15 Morphine Sulfate 2 mg Q30M PRN IV 07/01/25 18:15 Morphine Sulfate 4 mg Q4HPRN PRN IV 07/01/25 18:15 07/05/25 22:05 4 MG Pantoprazole Sodium 40 mg DAILY IV 07/02/25 10:00 07/06/25 10:38 40 MG Allopurinol 100 mg DAILY PO 07/02/25 10:00 07/06/25 10:38 100 MG Atorvastatin Calcium 20 mg DAILY PO 07/02/25 10:00 07/06/25 10:39 20 MG Diagnostic Test (Pha) 1 strip ACHS 07/01/25 22:00 07/06/25 11:56 1 STRIP Insulin Human Regular ACHS SC 07/01/25 22:00 07/05/25 17:33 4 UNITS Dextrose 50 ml UD PRN IV 07/01/25 19:15 Lisinopril 10 mg DAILY PO 07/03/25 10:00 07/06/25 10:38 10 MG Meropenem 50 ml @ 17 mls/hr Q8HR IV 07/03/25 14:00 07/06/25 13:24 17 MLS/HR Polyethylene Glycol 17 gm DAILY PO 07/05/25 10:00 07/06/25 10:00 17 GM Iron Sucrose 110 ml @ 110 mls/hr DAILY@1200 IV 07/05/25 14:45 07/09/25 14:44 07/06/25 11:57 110 MLS/HR Examination Patient lying in bed, in no acute distress General: Cachectic, afebrile, palor, mucosae are moist Cardiovascular: Regular S1 and S2. No murmurs, gallops or rubs. No JVD elevation. No pedal edema Respiratory: Normal B/L air entry on room air. Clear lung sounds on auscultation Abdomen: Soft, nontender, nondistended, normoactive bowel sounds, no rebound tenderness, no organomegaly, no masses. Abdomen has multiple chronic dark spots Genitourinary: Deferred MSK/skin: Mobilizes 4 limbs. Skin is dry and warm Neurological: No motor, no sensitive deficits, normal speech. Pupils are isocoric and reactive. Psych/Mental Status: A/Ox3 laboratory and microbiology Laboratory Tests 07/05/25 11:34 Test 07/05/25 11:34 Range/Units Serum Glucose 178 H 74-106 mg/dL Microbiology Date/Time Source Procedure Growth Status 07/05/25 11:35 Stool Stool Culture - Preliminary Resulted 07/05/25 11:35 Stool Shiga Toxin I & II - Final Resulted 07/01/25 18:39 Blood Blood Culture - Preliminary NO GROWTH AFTER 72 HOURS OF INCUBATION. Resulted Labs and/or images reviewed: Labs reviewed by me Problem List/Assessment/Plan Problem List/Assessment/Plan ? Probable Pancreatic adenocarcinoma ? Probable Liver metastasis Acute pancreatitis with peripancreatic fluid collection Anemia likely microcytic Iron-deficiency anemia New onset diabetes mellitus type 2-A1c 8.9 Transaminitis ? Recent history of typhoid fever-recent travel to [facility] CT abdomen with IV contrast shows Significant abnormal pancreatic head mass measuring 3.3 x 3.7 cm most likely compatible with pancreatic adenocarcinoma. Altered perfusion of the liver with question occlusion of the portal confluence close proximity to the pancreatic head mass [LIVER]: Extensive heterogeneous areas of hypoenhancement with extensive oval- shaped hypoattenuating lesion some which demonstrate significant peripheral enhancement highly concerning for metastatic disease. Characteristic lesion in the right inferior hepatic lobe, hepatic segment 5/6 measures 1.7 cm ESR 22 CRP Serum CK 33 CA 19 9 >49,000 AFP pending Plan: Recommendation: Dr. Bhandari H&H stable. No acute symptoms. Per radiologist, given the acute pancreatitis, liver biopsy is a high-risk procedure and to be done as outpatient. Radiologist recommended oncology consultation. Recommend higher level of care for EUS/ERCP, otherwise urgent outpatient follow up with the IR and oncology CA 19-9 >[id number], AFP unremarkable ID consultation-recommended meropenem, recommended pancreatic mass biopsy and consideration of ERCP Spoke to [facility] Dr Ko, willing to accept on Wednesday for EUS. Stool ebc negative, stool occult negative Continue IV iron supplementation. MiraLax daily Diet as tolerated Diabetic education Protonix 40 mg p.o. daily Plan discussed with patient, patient's son at bedside in which all questions have been answered Case discussed with Dr. Bhandari Plan discussed with: Patient, Spouse (At bedside), Son (At bedside) GEN TRAN RESIDENT Jul 06, 2025 14:48
[2025-07-07] VITALS (7 sets, daily range): BP systolic 106–148; BP diastolic 71–91; PULSE 64–80; RESP 14–19; TEMP 97.8–99; O2SAT 96–100
--- NOTE | 2025-07-07 00:02 | DVHPN2 ---
Consult Progress Note Date Seen: Jul 06, 2025 Subjective Patient reports: Feels better (tolerating soft diet) Objective vital signs Vital Sign Date Time Temp Pulse Resp B/P (MAP) Pulse Ox O2 Delivery O2 Flow Rate FiO2 07/06/25 17:00 98.9 71 17 110/73 (85) 97 98.9 07/06/25 08:00 Room Air* 0 21 Total Intake and Output 07/06/25 07/06/25 07/07/25 15:00 23:00 07:00 Intake Total 110 ml 850 ml Balance 110 ml 850 ml medications Current Medications Medications Dose Ordered Sig/Valery Route Start Time Stop Time Status Last Admin Dose Admin Sodium Chloride 1,000 ml @ 120 mls/hr Q8H20M IV 07/01/25 18:15 07/06/25 22:58 120 MLS/HR Acetaminophen/ Hydrocodone Bitart 1 tab Q4HP PRN PO 07/01/25 18:15 07/06/25 20:44 1 TAB Enoxaparin Sodium 40 mg DAILY SC 07/02/25 10:00 07/06/25 10:00 40 MG Acetaminophen 650 mg Q6HP PRN PO 07/01/25 18:15 07/06/25 16:26 650 MG Nitroglycerin 0.4 mg Q5MINP PRN SL 07/01/25 18:15 Morphine Sulfate 2 mg Q30M PRN IV 07/01/25 18:15 Morphine Sulfate 4 mg Q4HPRN PRN IV 07/01/25 18:15 07/05/25 22:05 4 MG Pantoprazole Sodium 40 mg DAILY IV 07/02/25 10:00 07/06/25 10:38 40 MG Allopurinol 100 mg DAILY PO 07/02/25 10:00 07/06/25 10:38 100 MG Atorvastatin Calcium 20 mg DAILY PO 07/02/25 10:00 07/06/25 10:39 20 MG Diagnostic Test (Pha) 1 strip ACHS 07/01/25 22:00 07/06/25 22:00 1 STRIP Insulin Human Regular ACHS SC 07/01/25 22:00 07/06/25 22:50 3 UNITS Dextrose 50 ml UD PRN IV 07/01/25 19:15 Lisinopril 10 mg DAILY PO 07/03/25 10:00 07/06/25 10:38 10 MG Meropenem 50 ml @ 17 mls/hr Q8HR IV 07/03/25 14:00 07/06/25 22:50 17 MLS/HR Polyethylene Glycol 17 gm DAILY PO 07/05/25 10:00 07/06/25 10:00 17 GM Iron Sucrose 110 ml @ 110 mls/hr DAILY@1200 IV 07/05/25 14:45 07/09/25 14:44 07/06/25 11:57 110 MLS/HR laboratory and microbiology Laboratory Tests 07/05/25 11:34 Test 07/05/25 11:34 Range/Units Serum Glucose 178 H 74-106 mg/dL Problem List/Assessment/Plan Problem List/Assessment/Plan ASSESSMENT AND PLAN: ID Problem List: -Acute pancreatitis -Pancreatic head mass (CT suggests probable pancreatic adenocarcinoma) -Extensive hepatic lesions suspicious for metastases; ascites -Large multiloculated peripancreatic fluid collection (tail) 6.6 cm; possible infected peripancreatic fluid collection -Diarrhea x ~1 month -Recent travel to [facility] without prior vaccinations -Morbid obesity -Anemia -Hyperlipidemia -Gout Assessment This is a 70 y.o. male with morbid obesity, anemia, hyperlipidemia, and gout presenting with 1 month of acute abdominal pain and diarrhea after recent travel to [facility] (no prior vaccinations). On arrival he had a mildly distended abdomen with diffuse tenderness. Initial labs notable for WBC ~9.8, Hgb 12.4, Plt 254; UA without pyuria; lipase 86; creatinine 1.02; BUN 9. Subsequent labs in transcript are internally inconsistent: WBC 9.4; hemoglobin is 4.4; decreased to 10.6; platelets 224. CT A/P (non-contrast) showed acute pancreatitis with a 6.6 cm multiloculated collection adjacent to the pancreatic tail and small-volume ascites. Contrast CT showed a pancreatic head mass (~3.3 ~3.0 cm; second dimension partially unclear in transcript) most compatible with pancreatic adenocarcinoma; altered liver perfusion with questionable occlusion of the portal confluence near the mass; extensive peripancreatic fluid collections with enhancement possibly compatible with infected collection; and multiple hepatic lesions with peripheral enhancement highly concerning for metastatic disease. Blood cultures reported as no growth to date in the transcript. 07/04: stool culture negative Plan: -- defer to GI team for any pancreatic enzymes to assist w/ diarrhea -- check stool O&P x 3 and strongyloides \-- continue meropenem empirically for possible infected/necrotic peripancreatic fluid collection in the setting of acute inflammation; \-- GI consultation for tissue diagnosis of pancreatic mass (biopsy) and consideration of ERCP, consider/agree with HLOC \-- Follow up blood cultures (no growth to date per transcript) and any additional cultures \-- Given recent travel and ongoing diarrhea, send stool studies (culture and additional pathogen testing as indicated) to evaluate for coexisting infectious diarrhea; clinical suspicion currently low per transcript \-- Defer comprehensive management of acute pancreatitis and abdominal pain to the primary team \-- Medication reconciliation: patient reports no home medications \-- Allergies: no known drug allergies Isolation Precautions: standard Assessment and plan was discussed with the patient as written above Plan is subject to change pending incorporation of new incoming information/diagnostics. Updates may be added as addendum at the bottom (OR TOP) of this note Thank you for interesting consult. ID will continue to follow. Please contact Infectious Disease for any questions or concerns. Prema Mckeon M.D. [facility] Ph: ? Teams text: [email or web address] _ _ Physical Exam: General: NAD Neck: Supple. No masses. HEENT: PERRL. Normal lids and conjunctiva. Moist mucous membranes. Oropharynx without lesions, exudates or excessive erythema. Normal appearance of the external aspects of the nose and ears. Heart: Regular rhythm, normal rate. No murmur. No lower extremity edema. Lungs: Normal respiratory effort. Clear to auscultation bilaterally. No wheezes. No crackles. Abdomen: Soft. Mildly distended. Diffusely tender to palpation. No masses or abdominal hernia noted in transcript. Msk: No digital cyanosis. Normal strength and tone in all 4 limbs. Skin: Warm and dry, no rashes. Neuro: Alert. No facial droop or slurred speech. Extra-ocular movements intact. Sensation intact to soft touch in all 4 limbs. Psych: Appropriate mood. Full affect. Oriented to person, place, time, and situation. Plan discussed with: Patient PREMA MCKEON MD Jul 07, 2025 00:02
--- NOTE | 2025-07-07 11:27 | DVHPN2 ---
Progress Note - Dictate Date Seen: Jul 07, 2025 Medical Necessity Reason Pt with a Central, PICC or Fol: No vital signs Vital Sign Date Time Temp Pulse Resp B/P (MAP) Pulse Ox O2 Delivery O2 Flow Rate FiO2 07/07/25 10:28 106/74 07/07/25 08:50 98.0 75 19 99 98.0 07/07/25 08:24 Room Air* 0 21 Total Intake and Output 07/06/25 07/06/25 07/07/25 15:00 23:00 07:00 Intake Total 110 ml 1850 ml 450 ml Balance 110 ml 1850 ml 450 ml medications Current Medications Medications Dose Ordered Sig/Valery Route Start Time Stop Time Status Last Admin Dose Admin Sodium Chloride 1,000 ml @ 120 mls/hr Q8H20M IV 07/01/25 18:15 07/07/25 07:35 120 MLS/HR Acetaminophen/ Hydrocodone Bitart 1 tab Q4HP PRN PO 07/01/25 18:15 07/07/25 10:27 1 TAB Enoxaparin Sodium 40 mg DAILY SC 07/02/25 10:00 07/07/25 10:00 40 MG Acetaminophen 650 mg Q6HP PRN PO 07/01/25 18:15 07/06/25 16:26 650 MG Nitroglycerin 0.4 mg Q5MINP PRN SL 07/01/25 18:15 Morphine Sulfate 2 mg Q30M PRN IV 07/01/25 18:15 Morphine Sulfate 4 mg Q4HPRN PRN IV 07/01/25 18:15 07/05/25 22:05 4 MG Pantoprazole Sodium 40 mg DAILY IV 07/02/25 10:00 07/07/25 10:27 40 MG Allopurinol 100 mg DAILY PO 07/02/25 10:00 07/07/25 10:27 100 MG Atorvastatin Calcium 20 mg DAILY PO 07/02/25 10:00 07/07/25 10:27 20 MG Diagnostic Test (Pha) 1 strip ACHS 07/01/25 22:00 07/07/25 11:02 1 STRIP Insulin Human Regular ACHS SC 07/01/25 22:00 07/07/25 11:07 2 UNITS Dextrose 50 ml UD PRN IV 07/01/25 19:15 Lisinopril 10 mg DAILY PO 07/03/25 10:00 07/07/25 10:28 10 MG Meropenem 50 ml @ 17 mls/hr Q8HR IV 07/03/25 14:00 07/07/25 05:22 17 MLS/HR Polyethylene Glycol 17 gm DAILY PO 07/05/25 10:00 07/06/25 10:00 17 GM Iron Sucrose 110 ml @ 110 mls/hr DAILY@1200 IV 07/05/25 14:45 07/09/25 14:44 07/07/25 11:09 110 MLS/HR objective General Appearance: alert, no distress HEENT: EOMI, PERRLA, normal external inspect of ears, no icterus, no nasal drainage Neck: no carotid bruit, no jugular venous distention (JVD), no lymphadenopathy Chest: normal thorax Respiratory: clear to auscultation, normal air movement Cardiovascular: regular rate and rhythm, no diastolic murmur, no jugular venous distention (JVD), no rub, no systolic murmur Abdominal: soft, no hepatomegaly, no mass, no splenomegaly, no tenderness Musculoskeletal: no joint tenderness, no swelling Extremities: normal pulses, no calf tenderness, no clubbing, no cyanosis, no edema Skin: no bruising, no jaundice, no rash Neurological: alert, No focal deficit laboratory and microbiology Laboratory Tests 07/05/25 11:34 Test 07/05/25 11:34 Range/Units Serum Glucose 178 H 74-106 mg/dL Problem List Acute Pancreatitis Assessment: Patient presents with acute abdominal pain in the setting of recent travel to [facility]. Clinical presentation and evaluation support diagnosis of acute pancreatitis requiring inpatient management. Plan: - Admit to hospital - IV fluid administration - GI consultation - Pain medications as needed - NPO status - PPI therapy - DVT prophylaxis Morbid Obesity Assessment: Patient has morbid obesity requiring lifestyle modification interventions. Plan: - Advised to exercise Anemia Assessment: Patient has anemia requiring monitoring. Plan: - Monitor Hyperlipidemia Assessment: Patient has hyperlipidemia requiring continued statin therapy. Plan: - Resume atorvastatin 20 mg Gout Assessment: Patient has gout requiring continued uric acid lowering therapy. Plan: - Resume allopurinol 100 mg daily New onset type 2 diabetes Plan: Labs, medications, diet, monitoring Pancreatic mass Plan: GI consult Liver lesions Plan: GI consult Assessment/Plan Subjective Patient is awake and alert. Objective Patient was admitted for abdominal pain. Patient was found to have a pancreatic mass with fluid collection most likely thought to be infected. Patient was seen by GI as well as ID. Patient is currently feeling better. He will need an EUS. CT imaging suggested possible obstruction. Patient will need EUS with possible stent. Patient was accepted to [facility]. Plan Continue current treatment. Plan to transfer to [facility] facility on Wednesday. Continue soft diet as tolerated at this time. Plan discussed with: Patient, Other SIMONA FRANKLIN NP Jul 07, 2025 11:27
[2025-07-08] VITALS (7 sets, daily range): BP systolic 123–139; BP diastolic 64–89; PULSE 67–78; RESP 16–20; TEMP 98.2–98.8; O2SAT 97–99
[2025-07-08 05:30] LABS: Hemoglobin 9.8 g/dL (13.5-17.5)
[2025-07-08 05:32] LABS: Hematocrit 29.4 % (41.0-53.0); Mean Corpuscular Hemoglobin 21.0 pg (28.0-32.0); Mean Corpuscular Volume 62.8 fL (80.0-100.0); Nucleated Red Blood Cells % 0.4 %
[2025-07-08 05:47] LABS: Alkaline Phosphatase 111 U/L (46-116); Anion Gap 8 (5-15); BUN/Creatinine Ratio 9.9 (10.0-20.0); Calcium 9.0 mg/dL (8.7-10.4); Carbon Dioxide 28 mmol/L (20-31); Chloride 104 mmol/L (98-107); Glucose 94 mg/dL (74-106); Potassium 4.2 mmol/L (3.5-5.1); Sodium 140 mmol/L (136-145); Total Protein 6.4 g/dL (5.7-8.2)
[2025-07-08 05:48] LABS: Albumin 3.7 g/dL (3.2-4.8)
[2025-07-08 05:49] LABS: Alanine Aminotransferase 41 U/L (7-40); Bilirubin, Total 0.7 mg/dL (0.2-1.0); Blood Urea Nitrogen 7 mg/dL (9-23)
--- NOTE | 2025-07-08 09:34 | DVH ---
MRI MRCP MRI Indication: r/o obstruction Comparison: CT 07/01/2025 Technique: MRI and MRCP of the abdomen was performed without gadolinium. 3D reconstructed images were created under concurrent radiologist supervision and archived on the PACS system. Findings: Hepatobiliary Findings: Bile ducts: Intrahepatic bile ducts are partially obscured by underlying hepatic lesions and adjacent fluid collection. Visualized distal common bile duct measures up to 4 mm. No definite filling defect. Liver: Multiple ill-defined hepatic lesions and masses throughout the liver, suspicious for metastases. Gallbladder: Unremarkable. Pancreas: Multiple large peripancreatic fluid collections abuts and partially obscures the underlying pancreas. The dominant loculated fluid collection measures up to 4.7 cm in the pancreatic tail region, grossly stable from prior. Suspected pancreatic head mass is similar to prior measuring approximately 3 cm with mild restricted diffusion. Pancreatic duct is not well delineated. Additional Findings: Lower chest: Unremarkable. Spleen: Unremarkable. Adrenals: Unremarkable. Kidneys: No [place] nephrosis. Bowel: No obstruction in the visualized loops of bowel. Lymph nodes: Unremarkable. Vessels: Loss of flow void signal in the main portal vein near the confluence as well as splenic vein and SMV, similar to prior, suspicious for underlying infiltration/occlusion. The intrahepatic portal veins flow void signal also diminished. Peritoneum: Heterogeneous signal involving the omentum and peritoneum suspicious for possible omental carcinomatosis. Small perihepatic fluid. Bones: No aggressive osseous lesion. IMPRESSION: No significant change in extensive peripancreatic fluid collections. Suspected pancreatic head mass measuring approximately 3 cm with multiple hepatic lesions. Findings raise suspicion for pancreatic neoplasm with hepatic metastases. Upstream pancreatic duct is not well delineated likely obscured by underlying fluid collections. Probable occlusion of the portal confluence, similar to prior. Consider doppler Ultrasound for further evaluation. Small perihepatic fluid with heterogeneous signal involving the omentum and peritoneum suspicious for possible omental carcinomatosis. Intrahepatic bile ducts are partially obscured by underlying hepatic lesions and adjacent fluid collections. Visualized distal common bile duct measures up to 4 mm. No definite filling defect.
--- NOTE | 2025-07-08 09:37 | DVHPN2 ---
Progress Note - Dictate Date Seen: Jul 08, 2025 Medical Necessity Reason Pt with a Central, PICC or Fol: No vital signs Vital Sign Date Time Temp Pulse Resp B/P (MAP) Pulse Ox O2 Delivery O2 Flow Rate FiO2 07/08/25 09:28 127/78 07/08/25 08:35 98.2 67 20 98 98.2 07/07/25 20:10 Room Air* 0 21 Total Intake and Output 07/07/25 07/07/25 07/08/25 15:00 23:00 07:00 Intake Total 110 ml 1410 ml 1200 ml Balance 110 ml 1410 ml 1200 ml medications Current Medications Medications Dose Ordered Sig/Valery Route Start Time Stop Time Status Last Admin Dose Admin Sodium Chloride 1,000 ml @ 120 mls/hr Q8H20M IV 07/01/25 18:15 07/08/25 08:51 120 MLS/HR Acetaminophen/ Hydrocodone Bitart 1 tab Q4HP PRN PO 07/01/25 18:15 07/08/25 05:35 1 TAB Enoxaparin Sodium 40 mg DAILY SC 07/02/25 10:00 07/07/25 10:00 40 MG Acetaminophen 650 mg Q6HP PRN PO 07/01/25 18:15 07/06/25 16:26 650 MG Nitroglycerin 0.4 mg Q5MINP PRN SL 07/01/25 18:15 Morphine Sulfate 2 mg Q30M PRN IV 07/01/25 18:15 Morphine Sulfate 4 mg Q4HPRN PRN IV 07/01/25 18:15 07/05/25 22:05 4 MG Pantoprazole Sodium 40 mg DAILY IV 07/02/25 10:00 07/08/25 09:22 40 MG Allopurinol 100 mg DAILY PO 07/02/25 10:00 07/08/25 09:28 100 MG Atorvastatin Calcium 20 mg DAILY PO 07/02/25 10:00 07/08/25 09:28 20 MG Diagnostic Test (Pha) 1 strip ACHS 07/01/25 22:00 07/08/25 05:55 1 STRIP Insulin Human Regular ACHS SC 07/01/25 22:00 07/07/25 21:41 3 UNITS Dextrose 50 ml UD PRN IV 07/01/25 19:15 Lisinopril 10 mg DAILY PO 07/03/25 10:00 07/08/25 09:28 10 MG Meropenem 50 ml @ 17 mls/hr Q8HR IV 07/03/25 14:00 07/08/25 05:28 17 MLS/HR Polyethylene Glycol 17 gm DAILY PO 07/05/25 10:00 07/08/25 09:30 17 GM Iron Sucrose 110 ml @ 110 mls/hr DAILY@1200 IV 07/05/25 14:45 07/09/25 14:44 07/07/25 11:09 110 MLS/HR objective General Appearance: alert, no distress HEENT: EOMI, PERRLA, normal external inspect of ears, no icterus, no nasal drainage Neck: no carotid bruit, no jugular venous distention (JVD), no lymphadenopathy Chest: normal thorax Respiratory: clear to auscultation, normal air movement Cardiovascular: regular rate and rhythm, no diastolic murmur, no jugular venous distention (JVD), no rub, no systolic murmur Abdominal: soft, no hepatomegaly, no mass, no splenomegaly, no tenderness Musculoskeletal: no joint tenderness, no swelling Extremities: normal pulses, no calf tenderness, no clubbing, no cyanosis, no edema Skin: no bruising, no jaundice, no rash Neurological: alert, No focal deficit laboratory and microbiology Laboratory Tests 07/08/25 04:44 Test 07/08/25 04:44 Range/Units Serum Glucose 94 74-106 mg/dL Problem List Acute Pancreatitis Assessment: Patient presents with acute abdominal pain in the setting of recent travel to [facility]. Clinical presentation and evaluation support diagnosis of acute pancreatitis requiring inpatient management. Plan: - Admit to hospital - IV fluid administration - GI consultation - Pain medications as needed - NPO status - PPI therapy - DVT prophylaxis Morbid Obesity Assessment: Patient has morbid obesity requiring lifestyle modification interventions. Plan: - Advised to exercise Anemia Assessment: Patient has anemia requiring monitoring. Plan: - Monitor Hyperlipidemia Assessment: Patient has hyperlipidemia requiring continued statin therapy. Plan: - Resume atorvastatin 20 mg Gout Assessment: Patient has gout requiring continued uric acid lowering therapy. Plan: - Resume allopurinol 100 mg daily New onset type 2 diabetes Plan: Labs, medications, diet, monitoring Pancreatic mass Plan: GI consult Liver lesions Plan: GI consult Assessment/Plan Subjective: Patient is awake and alert. Objective: No change to patient's plan of care. Patient is higher level of care. Patient needs a EUS and possible stent placement. MRI of the abdomen is still pending. Patient CT imaging shows possible adenocarcinoma of the pancreas with fluid collection around the pancreas. Patient was started on antibiotics. Patient was seen by infectious disease and GI. Pancreatitis has resolved. Patient is tolerating a soft diet. Plan: Continue current treatment. Transfer to [facility] on Wednesday for EUS and possible stent placement. Plan discussed with: Patient, Other SIMONA FRANKLIN NP Jul 08, 2025 09:37
--- NOTE | 2025-07-08 22:57 | DVHPN2 ---
Progress Note - Dictate Date Seen: Jul 08, 2025 Medical Necessity Reason Pt with a Central, PICC or Fol: No Subjective No new complaints, sitting up in the bed Three bowel movements recorded over the last 48 hours CA 19 level greater than [id number] highly suspicious for pancreatic malignancy CEA level and CA 125 ulcer slightly elevated likely due to pancreatic malignancy, serum alpha fetoprotein is normal vital signs Vital Sign Date Time Temp Pulse Resp B/P (MAP) Pulse Ox O2 Delivery O2 Flow Rate FiO2 07/08/25 21:00 98.5 68 18 139/89 (106) 99 98.5 07/08/25 20:10 Room Air* 0 21 Total Intake and Output 07/07/25 07/07/25 07/08/25 15:00 23:00 07:00 Intake Total 110 ml 1410 ml 1200 ml Balance 110 ml 1410 ml 1200 ml medications Current Medications Medications Dose Ordered Sig/Valery Route Start Time Stop Time Status Last Admin Dose Admin Sodium Chloride 1,000 ml @ 120 mls/hr Q8H20M IV 07/01/25 18:15 07/08/25 21:24 120 MLS/HR Acetaminophen/ Hydrocodone Bitart 1 tab Q4HP PRN PO 07/01/25 18:15 07/08/25 20:06 1 TAB Enoxaparin Sodium 40 mg DAILY SC 07/02/25 10:00 07/07/25 10:00 40 MG Acetaminophen 650 mg Q6HP PRN PO 07/01/25 18:15 07/06/25 16:26 650 MG Nitroglycerin 0.4 mg Q5MINP PRN SL 07/01/25 18:15 Morphine Sulfate 2 mg Q30M PRN IV 07/01/25 18:15 Morphine Sulfate 4 mg Q4HPRN PRN IV 07/01/25 18:15 07/05/25 22:05 4 MG Pantoprazole Sodium 40 mg DAILY IV 07/02/25 10:00 07/08/25 09:22 40 MG Allopurinol 100 mg DAILY PO 07/02/25 10:00 07/08/25 09:28 100 MG Atorvastatin Calcium 20 mg DAILY PO 07/02/25 10:00 07/08/25 09:28 20 MG Diagnostic Test (Pha) 1 strip ACHS 07/01/25 22:00 07/08/25 21:19 1 STRIP Insulin Human Regular ACHS SC 07/01/25 22:00 07/08/25 21:20 2 UNITS Dextrose 50 ml UD PRN IV 07/01/25 19:15 Lisinopril 10 mg DAILY PO 07/03/25 10:00 07/08/25 09:28 10 MG Meropenem 50 ml @ 17 mls/hr Q8HR IV 07/03/25 14:00 07/08/25 21:24 17 MLS/HR Polyethylene Glycol 17 gm DAILY PO 07/05/25 10:00 07/08/25 09:30 17 GM Iron Sucrose 110 ml @ 110 mls/hr DAILY@1200 IV 07/05/25 14:45 07/09/25 14:44 07/08/25 12:11 110 MLS/HR objective Patient lying in bed, in no acute distress General: Cachectic, afebrile, palor, mucosae are moist Cardiovascular: Regular S1 and S2. No murmurs, gallops or rubs. No JVD elevation. No pedal edema Respiratory: Normal B/L air entry on room air. Clear lung sounds on auscultation Abdomen: Soft, nontender, nondistended, normoactive bowel sounds, no rebound tenderness, no organomegaly, no masses. Abdomen has multiple chronic dark spots Genitourinary: Deferred MSK/skin: Mobilizes 4 limbs. Skin is dry and warm Neurological: No motor, no sensitive deficits, normal speech. Pupils are isocoric and reactive. Psych/Mental Status: A/Ox3 laboratory and microbiology Laboratory Tests 07/08/25 04:44 Test 07/08/25 04:44 Range/Units Serum Glucose 94 74-106 mg/dL Problems(with codes): (1) Abnormal finding on GI tract imaging (2) Diarrhea (3) Pancreatic cyst (4) Ascites (5) Acute pancreatitis Prognosis Plan: H&H stable. No acute symptoms. Per radiologist, given the acute pancreatitis, liver biopsy is a high-risk procedure and to be done as outpatient. Radiologist recommended oncology consultation. Recommend higher level of care for EUS/ERCP, otherwise urgent outpatient follow up with the IR and oncology CA 19-9 >[id number], AFP unremarkable ID consultation-recommended meropenem, recommended pancreatic mass biopsy and consideration of ERCP Spoke to [facility], willing to accept on Wednesday for EUS. Stool ebc negative, stool occult negative Continue IV iron supplementation. MiraLax daily Diet as tolerated Diabetic education Protonix 40 mg p.o. daily Plan discussed with: Patient, Other (Dr Temple) MARK LIZARRAGA MD Jul 08, 2025 22:57
[2025-07-09] VITALS (8 sets, daily range): BP systolic 115–139; BP diastolic 71–89; PULSE 66–80; RESP 16–18; TEMP 97–98.7; O2SAT 97–100
--- NOTE | 2025-07-09 15:30 | DVHPN2 ---
Progress Note - Dictate Date Seen: Jul 09, 2025 Medical Necessity Reason Pt with a Central, PICC or Fol: No vital signs Vital Sign Date Time Temp Pulse Resp B/P (MAP) Pulse Ox O2 Delivery O2 Flow Rate FiO2 07/09/25 13:00 98.1 75 18 115/84 (94) 100 98.1 07/09/25 08:00 Room Air* 0 21 Total Intake and Output 07/08/25 07/08/25 07/09/25 15:00 23:00 07:00 Intake Total 50 ml 1050 ml 50 ml Output Total 2 ml 1 ml Balance 50 ml 1048 ml 49 ml medications Current Medications Medications Dose Ordered Sig/Valery Route Start Time Stop Time Status Last Admin Dose Admin Sodium Chloride 1,000 ml @ 120 mls/hr Q8H20M IV 07/01/25 18:15 07/09/25 09:59 120 MLS/HR Acetaminophen/ Hydrocodone Bitart 1 tab Q4HP PRN PO 07/01/25 18:15 07/09/25 14:20 1 TAB Enoxaparin Sodium 40 mg DAILY SC 07/02/25 10:00 07/09/25 09:59 40 MG Acetaminophen 650 mg Q6HP PRN PO 07/01/25 18:15 07/06/25 16:26 650 MG Nitroglycerin 0.4 mg Q5MINP PRN SL 07/01/25 18:15 Morphine Sulfate 2 mg Q30M PRN IV 07/01/25 18:15 Morphine Sulfate 4 mg Q4HPRN PRN IV 07/01/25 18:15 07/05/25 22:05 4 MG Pantoprazole Sodium 40 mg DAILY IV 07/02/25 10:00 07/09/25 09:59 40 MG Allopurinol 100 mg DAILY PO 07/02/25 10:00 07/09/25 10:00 100 MG Atorvastatin Calcium 20 mg DAILY PO 07/02/25 10:00 07/09/25 10:00 20 MG Diagnostic Test (Pha) 1 strip ACHS 07/01/25 22:00 07/09/25 11:35 1 STRIP Insulin Human Regular ACHS SC 07/01/25 22:00 07/08/25 21:20 2 UNITS Dextrose 50 ml UD PRN IV 07/01/25 19:15 Lisinopril 10 mg DAILY PO 07/03/25 10:00 07/09/25 10:00 10 MG Meropenem 50 ml @ 17 mls/hr Q8HR IV 07/03/25 14:00 07/09/25 14:20 17 MLS/HR Polyethylene Glycol 17 gm DAILY PO 07/05/25 10:00 07/09/25 09:59 17 GM objective General Appearance: alert, no distress HEENT: EOMI, PERRLA, normal external inspect of ears, no icterus, no nasal drainage Neck: no carotid bruit, no jugular venous distention (JVD), no lymphadenopathy Chest: normal thorax Respiratory: clear to auscultation, normal air movement Cardiovascular: regular rate and rhythm, no diastolic murmur, no jugular venous distention (JVD), no rub, no systolic murmur Abdominal: soft, no hepatomegaly, no mass, no splenomegaly, no tenderness Musculoskeletal: no joint tenderness, no swelling Extremities: normal pulses, no calf tenderness, no clubbing, no cyanosis, no edema Skin: no bruising, no jaundice, no rash Neurological: alert, No focal deficit laboratory and microbiology Laboratory Tests 07/08/25 04:44 Test 07/08/25 04:44 Range/Units Serum Glucose 94 74-106 mg/dL Problem List Acute Pancreatitis Assessment: Patient presents with acute abdominal pain in the setting of recent travel to [facility]. Clinical presentation and evaluation support diagnosis of acute pancreatitis requiring inpatient management. Plan: - Admit to hospital - IV fluid administration - GI consultation - Pain medications as needed - NPO status - PPI therapy - DVT prophylaxis Morbid Obesity Assessment: Patient has morbid obesity requiring lifestyle modification interventions. Plan: - Advised to exercise Anemia Assessment: Patient has anemia requiring monitoring. Plan: - Monitor Hyperlipidemia Assessment: Patient has hyperlipidemia requiring continued statin therapy. Plan: - Resume atorvastatin 20 mg Gout Assessment: Patient has gout requiring continued uric acid lowering therapy. Plan: - Resume allopurinol 100 mg daily New onset type 2 diabetes Plan: Labs, medications, diet, monitoring Pancreatic mass Plan: GI consult Liver lesions Plan: GI consult Assessment/Plan Subjective: Patient is awake and alert. Objective: Spoke with patient and patient's at bedside. Patient is awaiting higher level of care. Patient found to have a pancreatic mass with multiple fluid collections. Patient was seen by infectious disease. Currently on IV antibiotics. Patient complaining of persistent abdominal pain. Patient has possible stenosis in his liver and if he will need a EUS with possible stent. Plan Continue antibiotics. Higher level of care transfer. Waiting on bed availability. Patient was accepted at [facility]. Plan discussed with: Patient, Other SIMONA FRANKLIN NP Jul 09, 2025 15:30
[2025-07-10] VITALS (8 sets, daily range): BP systolic 106–142; BP diastolic 69–86; PULSE 70–76; RESP 16–18; TEMP 98.1–98.5; O2SAT 95–99
[2025-07-10 12:37] LABS: Albumin 4.0 g/dL (3.2-4.8); Anion Gap 8 (5-15); BUN/Creatinine Ratio 10.4 (10.0-20.0); Calcium 9.4 mg/dL (8.7-10.4); Carbon Dioxide 29 mmol/L (20-31); Chloride 103 mmol/L (98-107); Potassium 4.5 mmol/L (3.5-5.1); Sodium 140 mmol/L (136-145); Total Protein 7.1 g/dL (5.7-8.2)
[2025-07-10 12:38] LABS: Bilirubin, Total 1.0 mg/dL (0.2-1.0)
[2025-07-10 12:46] LABS: Alanine Aminotransferase 58 U/L (7-40); Alkaline Phosphatase 164 U/L (46-116); Blood Urea Nitrogen 8 mg/dL (9-23); Glucose 194 mg/dL (74-106)
--- NOTE | 2025-07-10 13:17 | DVHPN2 ---
Consult Progress Note Date Seen: Jul 08, 2025 Subjective Patient reports: Feels better (no fever or chills) Objective vital signs Vital Sign Date Time Temp Pulse Resp B/P (MAP) Pulse Ox O2 Delivery O2 Flow Rate FiO2 07/10/25 09:36 142/86 07/10/25 09:00 98.1 74 18 99 98.1 07/09/25 20:00 Room Air* 0 21 Total Intake and Output 07/09/25 07/09/25 07/10/25 15:00 23:00 07:00 Intake Total 50 ml 1770 ml 400 ml Balance 50 ml 1770 ml 400 ml medications Current Medications Medications Dose Ordered Sig/Valery Route Start Time Stop Time Status Last Admin Dose Admin Sodium Chloride 1,000 ml @ 120 mls/hr Q8H20M IV 07/01/25 18:15 07/10/25 02:15 120 MLS/HR Acetaminophen/ Hydrocodone Bitart 1 tab Q4HP PRN PO 07/01/25 18:15 07/10/25 09:35 1 TAB Enoxaparin Sodium 40 mg DAILY SC 07/02/25 10:00 07/10/25 09:37 40 MG Acetaminophen 650 mg Q6HP PRN PO 07/01/25 18:15 07/06/25 16:26 650 MG Nitroglycerin 0.4 mg Q5MINP PRN SL 07/01/25 18:15 Morphine Sulfate 2 mg Q30M PRN IV 07/01/25 18:15 Morphine Sulfate 4 mg Q4HPRN PRN IV 07/01/25 18:15 07/05/25 22:05 4 MG Pantoprazole Sodium 40 mg DAILY IV 07/02/25 10:00 07/10/25 09:37 40 MG Allopurinol 100 mg DAILY PO 07/02/25 10:00 07/10/25 09:37 100 MG Atorvastatin Calcium 20 mg DAILY PO 07/02/25 10:00 07/10/25 09:37 20 MG Diagnostic Test (Pha) 1 strip ACHS 07/01/25 22:00 07/10/25 11:22 1 STRIP Insulin Human Regular ACHS SC 07/01/25 22:00 07/10/25 11:25 4 UNITS Dextrose 50 ml UD PRN IV 07/01/25 19:15 Lisinopril 10 mg DAILY PO 07/03/25 10:00 12/2/25 09:36 10 MG Meropenem 50 ml @ 17 mls/hr Q8HR IV 07/03/25 14:00 07/10/25 06:36 17 MLS/HR Polyethylene Glycol 17 gm DAILY PO 07/05/25 10:00 07/10/25 09:37 17 GM laboratory and microbiology Laboratory Tests 07/10/25 11:38 07/08/25 04:44 Test 07/10/25 11:38 Range/Units Serum Glucose 194 #H 74-106 mg/dL Problem List/Assessment/Plan Problem List/Assessment/Plan ASSESSMENT AND PLAN: ID Problem List: -Acute pancreatitis -Pancreatic head mass (CT suggests probable pancreatic adenocarcinoma) -Extensive hepatic lesions suspicious for metastases; ascites -Large multiloculated peripancreatic fluid collection (tail) 6.6 cm; possible infected peripancreatic fluid collection -Diarrhea x ~1 month -Recent travel to [facility] without prior vaccinations -Morbid obesity -Anemia -Hyperlipidemia -Gout Assessment This is a 70 y.o. male with morbid obesity, anemia, hyperlipidemia, and gout presenting with 1 month of acute abdominal pain and diarrhea after recent travel to [facility] (no prior vaccinations). On arrival he had a mildly distended abdomen with diffuse tenderness. Initial labs notable for WBC ~9.8, Hgb 12.4, Plt 254; UA without pyuria; lipase 86; creatinine 1.02; BUN 9. Subsequent labs in transcript are internally inconsistent: WBC 9.4; hemoglobin is 4.4; decreased to 10.6; platelets 224. CT A/P (non-contrast) showed acute pancreatitis with a 6.6 cm multiloculated collection adjacent to the pancreatic tail and small-volume ascites. Contrast CT showed a pancreatic head mass (~3.3 ~3.0 cm; second dimension partially unclear in transcript) most compatible with pancreatic adenocarcinoma; altered liver perfusion with questionable occlusion of the portal confluence near the mass; extensive peripancreatic fluid collections with enhancement possibly compatible with infected collection; and multiple hepatic lesions with peripheral enhancement highly concerning for metastatic disease. Blood cultures reported as no growth to date in the transcript. 07/04: stool culture negative Plan: -- defer to GI team for any pancreatic enzymes to assist w/ diarrhea -- check stool O&P x 3 and strongyloides \-- continue meropenem empirically for possible infected/necrotic peripancreatic fluid collection in the setting of acute inflammation; \-- GI consultation for tissue diagnosis of pancreatic mass (biopsy) and consideration of ERCP, consider/agree with HLOC \-- Follow up blood cultures (no growth to date per transcript) and any additional cultures \-- Given recent travel and ongoing diarrhea, send stool studies (culture and additional pathogen testing as indicated) to evaluate for coexisting infectious diarrhea; clinical suspicion currently low per transcript \-- Defer comprehensive management of acute pancreatitis and abdominal pain to the primary team \-- Medication reconciliation: patient reports no home medications \-- Allergies: no known drug allergies Isolation Precautions: standard Assessment and plan was discussed with the patient as written above Plan is subject to change pending incorporation of new incoming information/diagnostics. Updates may be added as addendum at the bottom (OR TOP) of this note Thank you for interesting consult. ID will continue to follow. Please contact Infectious Disease for any questions or concerns. Prema Mckeon M.D. [facility] Ph: ? Teams text: [email or web address] _ _ Physical Exam: General: NAD Neck: Supple. No masses. HEENT: PERRL. Normal lids and conjunctiva. Moist mucous membranes. Oropharynx without lesions, exudates or excessive erythema. Normal appearance of the external aspects of the nose and ears. Heart: Regular rhythm, normal rate. No murmur. No lower extremity edema. Lungs: Normal respiratory effort. Clear to auscultation bilaterally. No wheezes. No crackles. Abdomen: Soft. Mildly distended. Diffusely tender to palpation. No masses or abdominal hernia noted in transcript. Msk: No digital cyanosis. Normal strength and tone in all 4 limbs. Skin: Warm and dry, no rashes. Neuro: Alert. No facial droop or slurred speech. Extra-ocular movements intact. Sensation intact to soft touch in all 4 limbs. Psych: Appropriate mood. Full affect. Oriented to person, place, time, and situation. Plan discussed with: Patient PREMA MCKEON MD Jul 10, 2025 13:17
--- NOTE | 2025-07-10 13:17 | DVHPN2 ---
Consult Progress Note Date Seen: Jul 09, 2025 Subjective Patient reports: Feels better (no diarrhea or rash) Objective vital signs Vital Sign Date Time Temp Pulse Resp B/P (MAP) Pulse Ox O2 Delivery O2 Flow Rate FiO2 07/10/25 09:36 142/86 07/10/25 09:00 98.1 74 18 99 98.1 07/09/25 20:00 Room Air* 0 21 Total Intake and Output 07/09/25 07/09/25 07/10/25 15:00 23:00 07:00 Intake Total 50 ml 1770 ml 400 ml Balance 50 ml 1770 ml 400 ml medications Current Medications Medications Dose Ordered Sig/Valery Route Start Time Stop Time Status Last Admin Dose Admin Sodium Chloride 1,000 ml @ 120 mls/hr Q8H20M IV 07/01/25 18:15 07/10/25 02:15 120 MLS/HR Acetaminophen/ Hydrocodone Bitart 1 tab Q4HP PRN PO 07/01/25 18:15 07/10/25 09:35 1 TAB Enoxaparin Sodium 40 mg DAILY SC 07/02/25 10:00 07/10/25 09:37 40 MG Acetaminophen 650 mg Q6HP PRN PO 07/01/25 18:15 07/06/25 16:26 650 MG Nitroglycerin 0.4 mg Q5MINP PRN SL 07/01/25 18:15 Morphine Sulfate 2 mg Q30M PRN IV 07/01/25 18:15 Morphine Sulfate 4 mg Q4HPRN PRN IV 07/01/25 18:15 07/05/25 22:05 4 MG Pantoprazole Sodium 40 mg DAILY IV 07/02/25 10:00 07/10/25 09:37 40 MG Allopurinol 100 mg DAILY PO 07/02/25 10:00 07/10/25 09:37 100 MG Atorvastatin Calcium 20 mg DAILY PO 07/02/25 10:00 07/10/25 09:37 20 MG Diagnostic Test (Pha) 1 strip ACHS 07/01/25 22:00 07/10/25 11:22 1 STRIP Insulin Human Regular ACHS SC 07/01/25 22:00 07/10/25 11:25 4 UNITS Dextrose 50 ml UD PRN IV 07/01/25 19:15 Lisinopril 10 mg DAILY PO 07/03/25 10:00 07/10/25 09:36 10 MG Meropenem 50 ml @ 17 mls/hr Q8HR IV 07/03/25 14:00 07/10/25 06:36 17 MLS/HR Polyethylene Glycol 17 gm DAILY PO 07/05/25 10:00 07/10/25 09:37 17 GM laboratory and microbiology Laboratory Tests 07/10/25 11:38 07/08/25 04:44 Test 07/10/25 11:38 Range/Units Serum Glucose 194 #H 74-106 mg/dL Problem List/Assessment/Plan Problem List/Assessment/Plan ASSESSMENT AND PLAN: ID Problem List: -Acute pancreatitis -Pancreatic head mass (CT suggests probable pancreatic adenocarcinoma) -Extensive hepatic lesions suspicious for metastases; ascites -Large multiloculated peripancreatic fluid collection (tail) 6.6 cm; possible infected peripancreatic fluid collection -Diarrhea x ~1 month -Recent travel to [facility] without prior vaccinations -Morbid obesity -Anemia -Hyperlipidemia -Gout Assessment This is a 70 y.o. male with morbid obesity, anemia, hyperlipidemia, and gout presenting with 1 month of acute abdominal pain and diarrhea after recent travel to [facility] (no prior vaccinations). On arrival he had a mildly distended abdomen with diffuse tenderness. Initial labs notable for WBC ~9.8, Hgb 12.4, Plt 254; UA without pyuria; lipase 86; creatinine 1.02; BUN 9. Subsequent labs in transcript are internally inconsistent: WBC 9.4; hemoglobin is 4.4; decreased to 10.6; platelets 224. CT A/P (non-contrast) showed acute pancreatitis with a 6.6 cm multiloculated collection adjacent to the pancreatic tail and small-volume ascites. Contrast CT showed a pancreatic head mass (~3.3 ~3.0 cm; second dimension partially unclear in transcript) most compatible with pancreatic adenocarcinoma; altered liver perfusion with questionable occlusion of the portal confluence near the mass; extensive peripancreatic fluid collections with enhancement possibly compatible with infected collection; and multiple hepatic lesions with peripheral enhancement highly concerning for metastatic disease. Blood cultures reported as no growth to date in the transcript. 07/04: stool culture negative Plan: -- defer to GI team for any pancreatic enzymes to assist w/ diarrhea -- check stool O&P x 3 and strongyloides \-- continue meropenem empirically for possible infected/necrotic peripancreatic fluid collection in the setting of acute inflammation; \-- GI consultation for tissue diagnosis of pancreatic mass (biopsy) and consideration of ERCP, consider/agree with HLOC \-- Follow up blood cultures (no growth to date per transcript) and any additional cultures \-- Given recent travel and ongoing diarrhea, send stool studies (culture and additional pathogen testing as indicated) to evaluate for coexisting infectious diarrhea; clinical suspicion currently low per transcript \-- Defer comprehensive management of acute pancreatitis and abdominal pain to the primary team \-- Medication reconciliation: patient reports no home medications \-- Allergies: no known drug allergies Isolation Precautions: standard Assessment and plan was discussed with the patient as written above Plan is subject to change pending incorporation of new incoming information/diagnostics. Updates may be added as addendum at the bottom (OR TOP) of this note Thank you for interesting consult. ID will continue to follow. Please contact Infectious Disease for any questions or concerns. Prema Mckeon M.D. [facility] Ph: ? Teams text: [email or web address] _ _ Physical Exam: General: NAD Neck: Supple. No masses. HEENT: PERRL. Normal lids and conjunctiva. Moist mucous membranes. Oropharynx without lesions, exudates or excessive erythema. Normal appearance of the external aspects of the nose and ears. Heart: Regular rhythm, normal rate. No murmur. No lower extremity edema. Lungs: Normal respiratory effort. Clear to auscultation bilaterally. No wheezes. No crackles. Abdomen: Soft. Mildly distended. Diffusely tender to palpation. No masses or abdominal hernia noted in transcript. Msk: No digital cyanosis. Normal strength and tone in all 4 limbs. Skin: Warm and dry, no rashes. Neuro: Alert. No facial droop or slurred speech. Extra-ocular movements intact. Sensation intact to soft touch in all 4 limbs. Psych: Appropriate mood. Full affect. Oriented to person, place, time, and situation. Plan discussed with: Patient PREMA MCKEON MD Jul 10, 2025 13:17
--- NOTE | 2025-07-10 13:20 | DVHPN2 ---
Consult Progress Note Date Seen: Jul 10, 2025 Subjective Patient reports: Feels better (ongoing loose stools likely realted to pancreas. ) Objective vital signs Vital Sign Date Time Temp Pulse Resp B/P (MAP) Pulse Ox O2 Delivery O2 Flow Rate FiO2 07/10/25 09:36 142/86 07/10/25 09:00 98.1 74 18 99 98.1 07/09/25 20:00 Room Air* 0 21 Total Intake and Output 07/09/25 07/09/25 07/10/25 15:00 23:00 07:00 Intake Total 50 ml 1770 ml 400 ml Balance 50 ml 1770 ml 400 ml medications Current Medications Medications Dose Ordered Sig/Valery Route Start Time Stop Time Status Last Admin Dose Admin Sodium Chloride 1,000 ml @ 120 mls/hr Q8H20M IV 07/01/25 18:15 07/10/25 02:15 120 MLS/HR Acetaminophen/ Hydrocodone Bitart 1 tab Q4HP PRN PO 07/01/25 18:15 07/10/25 09:35 1 TAB Enoxaparin Sodium 40 mg DAILY SC 07/02/25 10:00 07/10/25 09:37 40 MG Acetaminophen 650 mg Q6HP PRN PO 07/01/25 18:15 07/06/25 16:26 650 MG Nitroglycerin 0.4 mg Q5MINP PRN SL 07/01/25 18:15 Morphine Sulfate 2 mg Q30M PRN IV 07/01/25 18:15 Morphine Sulfate 4 mg Q4HPRN PRN IV 07/01/25 18:15 07/05/25 22:05 4 MG Pantoprazole Sodium 40 mg DAILY IV 07/02/25 10:00 07/10/25 09:37 40 MG Allopurinol 100 mg DAILY PO 07/02/25 10:00 07/10/25 09:37 100 MG Atorvastatin Calcium 20 mg DAILY PO 07/02/25 10:00 07/10/25 09:37 20 MG Diagnostic Test (Pha) 1 strip ACHS 07/01/25 22:00 07/10/25 11:22 1 STRIP Insulin Human Regular ACHS SC 07/01/25 22:00 07/10/25 11:25 4 UNITS Dextrose 50 ml UD PRN IV 07/01/25 19:15 Lisinopril 10 mg DAILY PO 07/03/25 10:00 07/10/25 09:36 10 MG Meropenem 50 ml @ 17 mls/hr Q8HR IV 07/03/25 14:00 07/10/25 06:36 17 MLS/HR Polyethylene Glycol 17 gm DAILY PO 07/05/25 10:00 07/10/25 09:37 17 GM laboratory and microbiology Laboratory Tests 07/10/25 11:38 07/08/25 04:44 Test 07/10/25 11:38 Range/Units Serum Glucose 194 #H 74-106 mg/dL Problem List/Assessment/Plan Problem List/Assessment/Plan ASSESSMENT AND PLAN: ID Problem List: -Acute pancreatitis -Pancreatic head mass (CT suggests probable pancreatic adenocarcinoma) -Extensive hepatic lesions suspicious for metastases; ascites -Large multiloculated peripancreatic fluid collection (tail) 6.6 cm; possible infected peripancreatic fluid collection -Diarrhea x ~1 month -Recent travel to [facility] without prior vaccinations -Morbid obesity -Anemia -Hyperlipidemia -Gout Assessment This is a 70 y.o. male with morbid obesity, anemia, hyperlipidemia, and gout presenting with 1 month of acute abdominal pain and diarrhea after recent travel to [facility] (no prior vaccinations). On arrival he had a mildly distended abdomen with diffuse tenderness. Initial labs notable for WBC ~9.8, Hgb 12.4, Plt 254; UA without pyuria; lipase 86; creatinine 1.02; BUN 9. Subsequent labs in transcript are internally inconsistent: WBC 9.4; hemoglobin is 4.4; decreased to 10.6; platelets 224. CT A/P (non-contrast) showed acute pancreatitis with a 6.6 cm multiloculated collection adjacent to the pancreatic tail and small-volume ascites. Contrast CT showed a pancreatic head mass (~3.3 ~3.0 cm; second dimension partially unclear in transcript) most compatible with pancreatic adenocarcinoma; altered liver perfusion with questionable occlusion of the portal confluence near the mass; extensive peripancreatic fluid collections with enhancement possibly compatible with infected collection; and multiple hepatic lesions with peripheral enhancement highly concerning for metastatic disease. Blood cultures reported as no growth to date in the transcript. 07/04: stool culture negative 07/10: persistent loose stools somewhat improved Plan: -- defer to GI team for any pancreatic enzymes to assist w/ diarrhea -- check stool O&P x 3 and strongyloides \-- continue meropenem empirically for possible infected/necrotic peripancreatic fluid collection in the setting of acute inflammation; \-- GI consultation for tissue diagnosis of pancreatic mass (biopsy) and consideration of ERCP, consider/agree with HLOC \-- Follow up blood cultures (no growth to date per transcript) and any additional cultures \-- Given recent travel and ongoing diarrhea, send stool studies (culture and additional pathogen testing as indicated) to evaluate for coexisting infectious diarrhea; clinical suspicion currently low per transcript \-- Defer comprehensive management of acute pancreatitis and abdominal pain to the primary team \-- Medication reconciliation: patient reports no home medications \-- Allergies: no known drug allergies Isolation Precautions: standard Assessment and plan was discussed with the patient as written above Plan is subject to change pending incorporation of new incoming information/diagnostics. Updates may be added as addendum at the bottom (OR TOP) of this note Thank you for interesting consult. ID will continue to follow. Please contact Infectious Disease for any questions or concerns. Prema Mckeon M.D. [facility] Ph: ? Teams text: [email or web address] _ _ Physical Exam: General: NAD Neck: Supple. No masses. HEENT: PERRL. Normal lids and conjunctiva. Moist mucous membranes. Oropharynx without lesions, exudates or excessive erythema. Normal appearance of the external aspects of the nose and ears. Heart: Regular rhythm, normal rate. No murmur. No lower extremity edema. Lungs: Normal respiratory effort. Clear to auscultation bilaterally. No wheezes. No crackles. Abdomen: Soft. Mildly distended. Diffusely tender to palpation. No masses or abdominal hernia noted in transcript. Msk: No digital cyanosis. Normal strength and tone in all 4 limbs. Skin: Warm and dry, no rashes. Neuro: Alert. No facial droop or slurred speech. Extra-ocular movements intact. Sensation intact to soft touch in all 4 limbs. Psych: Appropriate mood. Full affect. Oriented to person, place, time, and situation. Plan discussed with: Patient PREMA MCKEON MD Jul 10, 2025 13:20
--- NOTE | 2025-07-10 15:21 | DVHPN2 ---
Progress Note - Dictate Date Seen: Jul 10, 2025 Medical Necessity Reason Pt with a Central, PICC or Fol: No vital signs Vital Sign Date Time Temp Pulse Resp B/P (MAP) Pulse Ox O2 Delivery O2 Flow Rate FiO2 07/10/25 13:00 98.2 70 18 120/70 (87) 99 98.2 07/09/25 20:00 Room Air* 0 21 Total Intake and Output 07/09/25 07/09/25 07/10/25 15:00 23:00 07:00 Intake Total 50 ml 1770 ml 400 ml Balance 50 ml 1770 ml 400 ml medications Current Medications Medications Dose Ordered Sig/Valery Route Start Time Stop Time Status Last Admin Dose Admin Sodium Chloride 1,000 ml @ 120 mls/hr Q8H20M IV 07/01/25 18:15 07/10/25 13:34 120 MLS/HR Acetaminophen/ Hydrocodone Bitart 1 tab Q4HP PRN PO 07/01/25 18:15 07/10/25 13:33 1 TAB Enoxaparin Sodium 40 mg DAILY SC 07/02/25 10:00 07/10/25 09:37 40 MG Acetaminophen 650 mg Q6HP PRN PO 07/01/25 18:15 07/06/25 16:26 650 MG Nitroglycerin 0.4 mg Q5MINP PRN SL 07/01/25 18:15 Morphine Sulfate 2 mg Q30M PRN IV 07/01/25 18:15 Morphine Sulfate 4 mg Q4HPRN PRN IV 07/01/25 18:15 07/05/25 22:05 4 MG Pantoprazole Sodium 40 mg DAILY IV 07/02/25 10:00 07/10/25 09:37 40 MG Allopurinol 100 mg DAILY PO 07/02/25 10:00 07/10/25 09:37 100 MG Atorvastatin Calcium 20 mg DAILY PO 07/02/25 10:00 07/10/25 09:37 20 MG Diagnostic Test (Pha) 1 strip ACHS 07/01/25 22:00 07/10/25 11:22 1 STRIP Insulin Human Regular ACHS SC 07/01/25 22:00 07/10/25 11:25 4 UNITS Dextrose 50 ml UD PRN IV 07/01/25 19:15 Lisinopril 10 mg DAILY PO 07/03/25 10:00 07/10/25 09:36 10 MG Meropenem 50 ml @ 17 mls/hr Q8HR IV 07/03/25 14:00 07/10/25 13:32 17 MLS/HR Polyethylene Glycol 17 gm DAILY PO 07/05/25 10:00 07/10/25 09:37 17 GM objective General Appearance: alert, no distress HEENT: EOMI, PERRLA, normal external inspect of ears, no icterus, no nasal drainage Neck: no carotid bruit, no jugular venous distention (JVD), no lymphadenopathy Chest: normal thorax Respiratory: clear to auscultation, normal air movement Cardiovascular: regular rate and rhythm, no diastolic murmur, no jugular venous distention (JVD), no rub, no systolic murmur Abdominal: soft, no hepatomegaly, no mass, no splenomegaly, no tenderness Musculoskeletal: no joint tenderness, no swelling Extremities: normal pulses, no calf tenderness, no clubbing, no cyanosis, no edema Skin: no bruising, no jaundice, no rash Neurological: alert, No focal deficit laboratory and microbiology Laboratory Tests 07/10/25 11:38 07/08/25 04:44 Test 07/10/25 11:38 Range/Units Serum Glucose 194 #H 74-106 mg/dL Problem List Acute Pancreatitis Assessment: Patient presents with acute abdominal pain in the setting of recent travel to [facility]. Clinical presentation and evaluation support diagnosis of acute pancreatitis requiring inpatient management. Plan: - Admit to hospital - IV fluid administration - GI consultation - Pain medications as needed - NPO status - PPI therapy - DVT prophylaxis Morbid Obesity Assessment: Patient has morbid obesity requiring lifestyle modification interventions. Plan: - Advised to exercise Anemia Assessment: Patient has anemia requiring monitoring. Plan: - Monitor Hyperlipidemia Assessment: Patient has hyperlipidemia requiring continued statin therapy. Plan: - Resume atorvastatin 20 mg Gout Assessment: Patient has gout requiring continued uric acid lowering therapy. Plan: - Resume allopurinol 100 mg daily New onset type 2 diabetes Plan: Labs, medications, diet, monitoring Pancreatic mass Plan: GI consult Liver lesions Plan: GI consult Assessment/Plan Subjective: Patient is awake and alert. Objective: Patient is higher level of care awaiting to transfer to tertiary center for EUS and possible stent placement. Patient was admitted for abdominal pain. He was found to have a pancreatic head mass with surrounding fluid collection possibly infectious. Patient was seen by infectious disease and GI. CT imaging shows liver lesions suspicious for metastasis. Plan: Continue antibiotics as ordered by ID, currently patient is on Merrem. Plan for transfer once bed is available. Plan discussed with: Patient, Other SIMONA FRANKLIN NP Jul 10, 2025 15:21
[2025-07-10 15:55] LABS: Nucleated Red Blood Cells % 0.3 %
[2025-07-10 15:57] LABS: Hematocrit 31.0 % (41.0-53.0); Hemoglobin 10.5 g/dL (13.5-17.5); Mean Corpuscular Hemoglobin 21.0 pg (28.0-32.0); Mean Corpuscular Volume 62.2 fL (80.0-100.0)
[2025-07-10 16:25] LABS: Anion Gap 7 (5-15); BUN/Creatinine Ratio 13.3 (10.0-20.0); Calcium 9.2 mg/dL (8.7-10.4); Carbon Dioxide 30 mmol/L (20-31); Chloride 103 mmol/L (98-107); Glucose 83 mg/dL (74-106); Lipase 47 U/L (12-53); Potassium 4.1 mmol/L (3.5-5.1); Sodium 140 mmol/L (136-145); Total Protein 6.9 g/dL (5.7-8.2)
[2025-07-10 16:26] LABS: Albumin 3.8 g/dL (3.2-4.8); Bilirubin, Total 0.9 mg/dL (0.2-1.0)
[2025-07-10 16:28] LABS: Alanine Aminotransferase 58 U/L (7-40); Alkaline Phosphatase 158 U/L (46-116); Blood Urea Nitrogen 8 mg/dL (9-23)
--- NOTE | 2025-07-10 18:12 | DVHPN2 ---
Progress Note Date Seen: Jul 10, 2025 Resident Creating Document: GEN TRAN RESIDENT Medical Necessity Reason Pt with a Central, PICC or Fol: No Subjective Review of Systems 70-year-old male who recently travel to [facility] presents to the ER with a chief complaint of abdominal pain and diarrhea for the past 1 month. Patient recently visited [facility] with his where he was diagnosed with typhoid fever after having abdominal pain. He received some medication but does not remember the name. Patient never has had EGD/colonoscopy. Patient reports eating and trying new food, developed abdominal pain, across the lower abdomen, nonradiating, along with the episodes of diarrhea nonbloody for the past month. He says that his did not try the food and did not get sick. Also reports 12 lb weight loss in the past month. Past medical/surgical history: Anemia Social history: Lives with nina, smokes 3 cigarettes-previously half a pack a day for the past 20 years, drinks socially 07/02-Patient seen and examined. IR consulted for IR guided liver biopsy. 07/03-Patient seen and examined. Had a bowel movement. Denies any abdominal symptoms. 07/04-patient seen and examined, no symptoms. Spoke to [facility], willing to accept on Wednesday for EUS. 07/05 - no acute complaint, had a bm 07/06-no acute complaint. No bowel movement. Reports being constipated. Sounds normal. Lactulose daily 07/10-abdomen soft, nontender normoactive Objective vital signs Vital Sign Date Time Temp Pulse Resp B/P (MAP) Pulse Ox O2 Delivery O2 Flow Rate FiO2 07/10/25 13:00 98.2 70 18 120/70 (87) 99 98.2 07/09/25 20:00 Room Air* 0 21 Total Intake and Output 07/09/25 07/09/25 07/10/25 15:00 23:00 07:00 Intake Total 50 ml 1770 ml 400 ml Balance 50 ml 1770 ml 400 ml medications Current Medications Medications Dose Ordered Sig/Valery Route Start Time Stop Time Status Last Admin Dose Admin Acetaminophen/ Hydrocodone Bitart 1 tab Q4HP PRN PO 07/01/25 18:15 07/10/25 13:33 1 TAB Enoxaparin Sodium 40 mg DAILY SC 07/02/25 10:00 07/10/25 09:37 40 MG Acetaminophen 650 mg Q6HP PRN PO 07/01/25 18:15 07/06/25 16:26 650 MG Nitroglycerin 0.4 mg Q5MINP PRN SL 07/01/25 18:15 Morphine Sulfate 2 mg Q30M PRN IV 07/01/25 18:15 Morphine Sulfate 4 mg Q4HPRN PRN IV 07/01/25 18:15 07/05/25 22:05 4 MG Pantoprazole Sodium 40 mg DAILY IV 07/02/25 10:00 07/10/25 09:37 40 MG Allopurinol 100 mg DAILY PO 07/02/25 10:00 07/10/25 09:37 100 MG Atorvastatin Calcium 20 mg DAILY PO 07/02/25 10:00 07/10/25 09:37 20 MG Diagnostic Test (Pha) 1 strip ACHS 07/01/25 22:00 07/10/25 17:18 1 STRIP Insulin Human Regular ACHS SC 07/01/25 22:00 07/10/25 17:22 2 UNITS Dextrose 50 ml UD PRN IV 07/01/25 19:15 Lisinopril 10 mg DAILY PO 07/03/25 10:00 07/10/25 09:36 10 MG Meropenem 50 ml @ 17 mls/hr Q8HR IV 07/03/25 14:00 07/10/25 13:32 17 MLS/HR Polyethylene Glycol 17 gm DAILY PO 07/05/25 10:00 07/10/25 09:37 17 GM Examination Patient lying in bed, in no acute distress General: Cachectic, afebrile, palor, mucosae are moist Cardiovascular: Regular S1 and S2. No murmurs, gallops or rubs. No JVD elevation. No pedal edema Respiratory: Normal B/L air entry on room air. Clear lung sounds on auscultation Abdomen: Soft, nontender, nondistended, normoactive bowel sounds, no rebound tenderness, no organomegaly, no masses. Abdomen has multiple chronic dark spots Genitourinary: Deferred MSK/skin: Mobilizes 4 limbs. Skin is dry and warm Neurological: No motor, no sensitive deficits, normal speech. Pupils are isocoric and reactive. Psych/Mental Status: A/Ox3 laboratory and microbiology Laboratory Tests 07/10/25 15:35 Test 07/10/25 15:35 Range/Units Serum Glucose 83 # 74-106 mg/dL Microbiology Date/Time Source Procedure Growth Status 07/05/25 11:35 Stool Stool Culture - Final Complete 07/05/25 11:35 Stool Shiga Toxin I & II - Final Complete 07/01/25 18:39 Blood Blood Culture - Final NO GROWTH AFTER 5 DAYS OF INCUBATION. Complete Labs and/or images reviewed: Labs reviewed by me, Image(s) reviewed by me Problem List/Assessment/Plan Problem List/Assessment/Plan ? Probable Pancreatic adenocarcinoma ? Probable Liver metastasis Acute pancreatitis with peripancreatic fluid collection Anemia likely microcytic Iron-deficiency anemia New onset diabetes mellitus type 2-A1c 8.9 Transaminitis ? Recent history of typhoid fever-recent travel to [facility] CT abdomen with IV contrast shows Significant abnormal pancreatic head mass measuring 3.3 x 3.7 cm most likely compatible with pancreatic adenocarcinoma. Altered perfusion of the liver with question occlusion of the portal confluence close proximity to the pancreatic head mass [LIVER]: Extensive heterogeneous areas of hypoenhancement with extensive oval- shaped hypoattenuating lesion some which demonstrate significant peripheral enhancement highly concerning for metastatic disease. Characteristic lesion in the right inferior hepatic lobe, hepatic segment 5/6 measures 1.7 cm ESR 22 CRP Serum CK 33 CA 19 9 >49,000 AFP pending Plan: Recommendation: Dr. Bhandari LFTs stable. H&H stable. No acute symptoms. Per radiologist, given the acute pancreatitis, liver biopsy is a high-risk procedure and to be done as outpatient. Radiologist recommended oncology consultation. Recommend higher level of care for EUS/ERCP, otherwise urgent outpatient follow up with the IR and oncology CA 19-9 >[id number], AFP unremarkable ID consultation-recommended meropenem, recommended pancreatic mass biopsy and consideration of ERCP Spoke to [facility] Dr Ko, willing to accept on Wednesday for EUS. Patient accepted at [facility], pending bed availability Stool WBC negative, stool occult negative Completed IV iron supplementation, continue p.o. MiraLax daily Diet as tolerated Diabetic education Protonix 40 mg p.o. daily Plan discussed with patient, patient's son at bedside in which all questions have been answered Case discussed with Dr. Bhandari Plan discussed with: Patient GEN TRAN RESIDENT Jul 10, 2025 18:12
[2025-07-11] VITALS (7 sets, daily range): BP systolic 99–136; BP diastolic 58–85; PULSE 65–89; RESP 16–20; TEMP 97.2–98.7; O2SAT 98–100
[2025-07-11] MEDS: HYDROcodone-ACET 5/325MG TAB PO PRN (06:18)
[2025-07-11] MEDS: FERROUS SULFATE 325mg EC TAB PO SCH (09:07)
--- NOTE | 2025-07-11 11:00 | DVHDS2 ---
Discharge Summary Date of Admission Jul 01, 2025 at 18:15 Labs/Diagnostic Data: Laboratory Results Test 07/11/25 06:11 07/10/25 15:35 07/05/25 11:35 07/05/25 11:34 POC Glucose 102 mg/dl (70-106) White Blood Count 8.6 10^3/uL (4.4-10.8) Red Blood Count 4.98 10^6/uL (4.5-5.90) Hemoglobin 10.5 g/dL (13.5-17.5) Hematocrit 31.0 % (41.0-53.0) Mean Corpuscular Volume 62.2 fL (80.0-100.0) Mean Corpuscular Hemoglobin 21.0 pg (28.0-32.0) Mean Corpuscular Hemoglobin Concent 33.7 g/dL (32.0-36.0) Red Cell Distribution Width 16.7 % (11.8-14.3) Platelet Count 292 10^3/uL (140-450) Mean Platelet Volume 7.3 fL (6.9-10.8) Neutrophils (%) (Auto) 58.1 % (37.0-80.0) Lymphocytes (%) (Auto) 27.5 % (10.0-50.0) Monocytes (%) (Auto) 10.6 % (0.0-12.0) Eosinophils (%) (Auto) 2.8 % (0.0-7.0) Basophils (%) (Auto) 1.0 % (0.0-2.0) Neutrophils # (Auto) 5.0 10 ^3/uL (1.6-8.6) Lymphocytes # (Auto) 2.4 10 ^3/uL (0.4-5.4) Monocytes # (Auto) 0.9 10 ^3/uL (0-1.3) Eosinophils # (Auto) 0.2 10 ^3/uL (0-0.8) Basophils # (Auto) 0.1 10 ^3/uL (0-0.2) Nucleated Red Blood Cells 0.3 % Sodium Level 140 mmol/L (136-145) Potassium Level 4.1 mmol/L (3.5-5.1) Chloride Level 103 mmol/L (98-107) Carbon Dioxide Level 30 mmol/L (20-31) Anion Gap 7 (5-15) Blood Urea Nitrogen 8 mg/dL (9-23) Creatinine 0.60 mg/dL (0.700-1.30) Glomerular Filtration Rate Calc 105 mL/min (>90) BUN/Creatinine Ratio 13.3 (10.0-20.0) Serum Glucose 83 mg/dL (74-106) Calcium Level 9.2 mg/dL (8.7-10.4) Total Bilirubin 0.9 mg/dL (0.2-1.0) Aspartate Amino Transferase (AST) 111 U/L (13-40) Alanine Aminotransferase (ALT) 58 U/L (7-40) Alkaline Phosphatase 158 U/L (46-116) Total Protein 6.9 g/dL (5.7-8.2) Albumin 3.8 g/dL (3.2-4.8) Lipase 47 U/L (12-53) Stool Occult Blood Sample #3 Negative (Negative) Stool for White Cells None seen Prothrombin Time 11.2 sec (9.3-11.8) Prothrombin Time INR 1.06 (0.9-1.15) Test 07/03/25 11:02 07/02/25 16:19 07/02/25 16:18 07/02/25 10:00 Reticulocyte Count (auto) 1.89 % (0.5-1.5) Iron Level 59 ug/dL (65-175) Total Iron Binding Capacity 283 ug/dL (250-425) Percent Iron Saturation 20.8 % (20-55) Ferritin 733.5 ng/mL (22-322) Hepatitis A IgM Antibody Negative Hepatitis A Antibody Total Positive (Negative) Hepatitis B Surface Antigen Negative (Negative) Hepatitis B Surface Antibody Negative (Negative) Hepatitis B Core Total Antibody Positive (Negative) Hepatitis B Core IgM Antibody Negative (Negative) Hepatitis C Antibody Negative (Negative) Tumor Marker Alpha Fetoprotein <1.8 ng/mL (0.0-8.4) Erythrocyte Sedimentation Rate 22 mm/hr (0-20) Activated Partial Thromboplast Time 26.6 SEC (24.5-34.5) Creatine Kinase 33 U/L (46-171) C-Reactive Protein High Sensitivity 0.51 mg/dL (<1.0) Carcinoembryonic Antigen 62.95 ng/mL (<=5.0) CA 19-9 Antigen 15038 U/mL (0-35) CA 125 Antigen 281.0 U/mL (Not Estab.) Test 07/01/25 16:02 07/01/25 15:45 Hemoglobin A1c 8.9 % A1C (<5.7) Amylase Level 406 U/L (30-118) Urine Color Dark-yellow (Yellow) Urine Clarity Turbid (Clear) Urine pH 6.0 (5.0-9.0) Urine Specific [place] 1.037 (1.001-1.035) Urine Protein 1+ (Negative) Urine Ketones Trace (Negative) Urine Blood Negative /uL (Negative) Urine Nitrite Negative (Negative) Urine Bilirubin 1+ (Negative) Urine Urobilinogen 3 mg/dL (Negative) Urine Leukocyte Esterase Negative /uL (Negative) Urine RBC 2 /hpf (0 - 3) Urine Microscopic WBC 3 /HPF (0-3) Urine Squamous Epithelial Cells Few /hpf (<5) Urine Bacteria None seen /hpf (None Seen) Urine Hyaline Casts Many /lpf (0 - 2) Urine Mucus Moderate (None Seen) Urine Glucose Trace mg/dL (Normal) Other Laboratory Tests 07/10/25 15:35 Discharge Instruct/Medications Scheduled Allopurinol (Allopurinol), 1 TAB PO DAILY, (Reported) Allopurinol (Allopurinol), 1 TAB PO DAILY, (Reported) Atorvastatin Calcium (Atorvastatin Calcium), 1 TAB PO DAILY, (Reported) Atorvastatin Calcium (Atorvastatin Calcium), 1 TAB PO DAILY, (Reported) Cetirizine HCl (Cetirizine Hydrochloride), 1 TAB PO DAILY, (Reported) Hctz (Hydrochlorothiazide), 1 TAB PO DAILY, (Reported) Hydrochlorothiazide (Hydrochlorothiazide), 25 MG PO DAILY, (Reported) Omeprazole (Gnp Omeprazole), 1 TAB PO DAILY, (Reported) Zinc Sulfate (Zinc Sulfate), 1 TAB PO DAILY, (Reported) Scheduled PRN Acetaminophen (Acetaminophen), 325 MG PO Q4HP PRN for MILD PAIN, (Reported) Miscellaneous Medications Acetaminophen (Acetaminophen Extra Stren), PO, (Reported) Discharge Statement: "Patient was advised to return to the ER or call 911 if any headaches, dizziness, shortness of breath, chest pain, abdominal pain, bleeding, fevers, or worsening of medical condition. Patient was counseled about treatment plan, medications, possible side effects, patientverbalized understanding. All questions were answered to the best of my ability. This discharge took greater then 30 minutes in planning, reviewing documentation, counseling the patient, and discussing with other team members." ASSESSMENT ASSESSMENT Assessment SIMONA FRANKLIN NP Jul 11, 2025 11:00
--- NOTE | 2025-07-11 17:35 | DVHPN2 ---
Progress Note Date Seen: Jul 11, 2025 Resident Creating Document: GEN TARN RESIDENT Medical Necessity Reason Pt with a Central, PICC or Fol: No Subjective Review of Systems 70-year-old male who recently travel to [facility] presents to the ER with a chief complaint of abdominal pain and diarrhea for the past 1 month. Patient recently visited [facility] with his where he was diagnosed with typhoid fever after having abdominal pain. He received some medication but does not remember the name. Patient never has had EGD/colonoscopy. Patient reports eating and trying new food, developed abdominal pain, across the lower abdomen, nonradiating, along with the episodes of diarrhea nonbloody for the past month. He says that his did not try the food and did not get sick. Also reports 12 lb weight loss in the past month. Past medical/surgical history: Anemia Social history: Lives with nina, smokes 3 cigarettes-previously half a pack a day for the past 20 years, drinks socially 07/02-Patient seen and examined. IR consulted for IR guided liver biopsy. 07/03-Patient seen and examined. Had a bowel movement. Denies any abdominal symptoms. 07/04-patient seen and examined, no symptoms. Spoke to [facility], willing to accept on Wednesday for EUS. 07/05 - no acute complaint, had a bm 07/06-no acute complaint. No bowel movement. Reports being constipated. Sounds normal. Lactulose daily 07/10-abdomen soft, nontender normoactive 07/11 - one bowel movement. Tap water enema Objective vital signs Vital Sign Date Time Temp Pulse Resp B/P (MAP) Pulse Ox O2 Delivery O2 Flow Rate FiO2 07/11/25 16:35 97.8 66 18 136/85 (102) 99 97.8 07/11/25 08:15 Room Air* 0 21 Total Intake and Output 07/10/25 07/10/25 07/11/25 14:59 22:59 06:59 Intake Total 600 ml 500 ml 700 ml Balance 600 ml 500 ml 700 ml medications Current Medications Medications Dose Ordered Sig/Valery Route Start Time Stop Time Status Last Admin Dose Admin Enoxaparin Sodium 40 mg DAILY SC 07/02/25 10:00 07/11/25 09:07 40 MG Acetaminophen 650 mg Q6HP PRN PO 07/01/25 18:15 07/06/25 16:26 650 MG Nitroglycerin 0.4 mg Q5MINP PRN SL 07/01/25 18:15 Pantoprazole Sodium 40 mg DAILY IV 07/02/25 10:00 07/11/25 09:07 40 MG Allopurinol 100 mg DAILY PO 07/02/25 10:00 07/11/25 09:06 100 MG Atorvastatin Calcium 20 mg DAILY PO 07/02/25 10:00 07/11/25 09:06 20 MG Diagnostic Test (Pha) 1 strip ACHS 07/01/25 22:00 07/11/25 11:41 1 STRIP Insulin Human Regular ACHS SC 07/01/25 22:00 07/11/25 11:41 3 UNITS Dextrose 50 ml UD PRN IV 07/01/25 19:15 Lisinopril 10 mg DAILY PO 07/03/25 10:00 07/11/25 09:06 10 MG Meropenem 50 ml @ 17 mls/hr Q8HR IV 07/03/25 14:00 07/11/25 13:53 17 MLS/HR Polyethylene Glycol 17 gm DAILY PO 07/05/25 10:00 07/11/25 09:07 17 GM Ferrous Sulfate 325 mg MWF PO 07/11/25 10:00 07/11/25 09:07 325 MG Acetaminophen/ Hydrocodone Bitart 1 tab Q4HPRN PRN PO 07/11/25 05:45 07/11/25 06:18 1 TAB Examination Patient lying in bed, in no acute distress General: Cachectic, afebrile, palor, mucosae are moist Cardiovascular: Regular S1 and S2. No murmurs, gallops or rubs. No JVD elevation. No pedal edema Respiratory: Normal B/L air entry on room air. Clear lung sounds on auscultation Abdomen: Soft, nontender, nondistended, normoactive bowel sounds, no rebound tenderness, no organomegaly, no masses. Abdomen has multiple chronic dark spots Genitourinary: Deferred MSK/skin: Mobilizes 4 limbs. Skin is dry and warm Neurological: No motor, no sensitive deficits, normal speech. Pupils are isocoric and reactive. Psych/Mental Status: A/Ox3 laboratory and microbiology Laboratory Tests 07/10/25 15:35 Test 07/10/25 15:35 Range/Units Serum Glucose 83 # 74-106 mg/dL Microbiology Date/Time Source Procedure Growth Status 07/05/25 11:35 Stool Stool Culture - Final Complete 07/05/25 11:35 Stool Shiga Toxin I & II - Final Complete 07/01/25 18:39 Blood Blood Culture - Final NO GROWTH AFTER 5 DAYS OF INCUBATION. Complete Labs and/or images reviewed: Labs reviewed by me, Image(s) reviewed by me Problem List/Assessment/Plan Problem List/Assessment/Plan ? Probable Pancreatic adenocarcinoma ? Probable Liver metastasis Acute pancreatitis with peripancreatic fluid collection Anemia likely microcytic Iron-deficiency anemia New onset diabetes mellitus type 2-A1c 8.9 Transaminitis ? Recent history of typhoid fever-recent travel to [facility] CT abdomen with IV contrast shows Significant abnormal pancreatic head mass measuring 3.3 x 3.7 cm most likely compatible with pancreatic adenocarcinoma. Altered perfusion of the liver with question occlusion of the portal confluence close proximity to the pancreatic head mass [LIVER]: Extensive heterogeneous areas of hypoenhancement with extensive oval- shaped hypoattenuating lesion some which demonstrate significant peripheral enhancement highly concerning for metastatic disease. Characteristic lesion in the right inferior hepatic lobe, hepatic segment 5/6 measures 1.7 cm ESR 22 CRP Serum CK 33 CA 19 9 >49,000 AFP pending Plan: Recommendation: Dr. Bhandari H&H stable. No acute symptoms. Per radiologist, given the acute pancreatitis, liver biopsy is a high-risk procedure and to be done as outpatient. Radiologist recommended oncology consultation. Recommend higher level of care for EUS/ERCP, otherwise urgent outpatient follow up with the IR and oncology CA 19-9 >[id number], AFP unremarkable ID consultation-recommended meropenem, recommended pancreatic mass biopsy and consideration of ERCP Spoke to [facility] Dr Ko, willing to accept on Wednesday for EUS. Patient accepted at [facility], pending bed availability Stool WBC negative, stool occult negative Completed IV iron supplementation, continue p.o. MiraLax daily Diet as tolerated Diabetic education Protonix 40 mg p.o. daily Plan discussed with patient, patient's son at bedside in which all questions have been answered Case discussed with Dr. Bhandari Plan discussed with: Patient My Orders My Orders Orders - GEN TRAN Procedure Category Date Status Time Ferrous Sulfate Tablet PHA 07/11/25 In Process 10:00 GEN TRAN Jul 11, 2025 17:35
--- NOTE | 2025-07-11 20:53 | DVHPN2 ---
Progress Note - Dictate Date Seen: Jul 11, 2025 Medical Necessity Reason Pt with a Central, PICC or Fol: No vital signs Vital Sign Date Time Temp Pulse Resp B/P (MAP) Pulse Ox O2 Delivery O2 Flow Rate FiO2 07/11/25 16:35 97.8 66 18 136/85 (102) 99 97.8 07/11/25 08:15 Room Air* 0 21 Total Intake and Output 07/10/25 07/10/25 07/11/25 15:00 23:00 07:00 Intake Total 600 ml 500 ml 700 ml Balance 600 ml 500 ml 700 ml medications Current Medications Medications Dose Ordered Sig/Valery Route Start Time Stop Time Status Last Admin Dose Admin Enoxaparin Sodium 40 mg DAILY SC 07/02/25 10:00 07/11/25 09:07 Acetaminophen 650 mg Q6HP PRN PO 07/01/25 18:15 07/06/25 16:26 Nitroglycerin 0.4 mg Q5MINP PRN SL 07/01/25 18:15 Pantoprazole Sodium 40 mg DAILY IV 07/02/25 10:00 07/11/25 09:07 Allopurinol 100 mg DAILY PO 07/02/25 10:00 07/11/25 09:06 Atorvastatin Calcium 20 mg DAILY PO 07/02/25 10:00 07/11/25 09:06 Diagnostic Test (Pha) 1 strip ACHS 07/01/25 22:00 07/11/25 17:00 Insulin Human Regular ACHS SC 07/01/25 22:00 07/11/25 18:11 Dextrose 50 ml UD PRN IV 07/01/25 19:15 Lisinopril 10 mg DAILY PO 07/03/25 10:00 07/11/25 09:06 Meropenem 50 ml @ 17 mls/hr Q8HR IV 07/03/25 14:00 07/11/25 13:53 Ferrous Sulfate 325 mg MWF PO 07/11/25 10:00 07/11/25 09:07 Acetaminophen/ Hydrocodone Bitart 1 tab Q4HPRN PRN PO 07/11/25 05:45 07/11/25 18:20 objective General Appearance: alert, no distress HEENT: EOMI, PERRLA, normal external inspect of ears, no icterus, no nasal drainage Neck: no carotid bruit, no jugular venous distention (JVD), no lymphadenopathy Chest: normal thorax Respiratory: clear to auscultation, normal air movement Cardiovascular: regular rate and rhythm, no diastolic murmur, no jugular venous distention (JVD), no rub, no systolic murmur Abdominal: soft, no hepatomegaly, no mass, no splenomegaly, no tenderness Musculoskeletal: no joint tenderness, no swelling Extremities: normal pulses, no calf tenderness, no clubbing, no cyanosis, no edema Skin: no bruising, no jaundice, no rash Neurological: alert, No focal deficit laboratory and microbiology Laboratory Tests 07/10/25 15:35 Test 07/10/25 15:35 Range/Units Serum Glucose 83 # 74-106 mg/dL Problem List Acute Pancreatitis Assessment: Patient presents with acute abdominal pain in the setting of recent travel to [facility]. Clinical presentation and evaluation support diagnosis of acute pancreatitis requiring inpatient management. Plan: - Admit to hospital - IV fluid administration - GI consultation - Pain medications as needed - NPO status - PPI therapy - DVT prophylaxis Morbid Obesity Assessment: Patient has morbid obesity requiring lifestyle modification interventions. Plan: - Advised to exercise Anemia Assessment: Patient has anemia requiring monitoring. Plan: - Monitor Hyperlipidemia Assessment: Patient has hyperlipidemia requiring continued statin therapy. Plan: - Resume atorvastatin 20 mg Gout Assessment: Patient has gout requiring continued uric acid lowering therapy. Plan: - Resume allopurinol 100 mg daily New onset type 2 diabetes Plan: Labs, medications, diet, monitoring Pancreatic mass Plan: GI consult Liver lesions Plan: GI consult Assessment/Plan Subjective: Patient is awake and alert. Objective: Awaiting for higher level of care transfer. [facility] attempted to call my phone earlier this morning however I was not on-call and my phone went right to voicemail. I did speak with a fraud representative at [phone] and then they informed me that the GI was on board and they needed to speak internal medicine and they would reach out to me. I have yet to speak with disposition from [facility]. Patient is stable. Patient was admitted for abdominal pain. Patient found to have acute pancreatitis. Patient had elevated liver enzymes. Repeat lipase is now normal. CT imaging shows patient had a pancreatic head mass approximately 3 cm with of surrounding fluid around his pancreas. MRCP showed hepatic lesions suspicious for metastasis possible occlusion of the portal confluence. CA 199 was 49,532. AFP was less than 1.8. CEA was 62. Patient is still complaining of some pain. Patient was seen by infectious disease. Currently on IV meropenem. Patient is diabetic. Glucose levels have been controlled. Current A1c is 8.9. Plan Continue current treatment. Patient is tolerating oral diet. IV fluids were discontinued. Pending peer to peer for transfer to higher level of care. Plan discussed with: Patient, Other SIMONA FRANKLIN NP Jul 11, 2025 20:53
[2025-07-12 01:00] VITALS: BP 127/80; PULSE 74; RESP 18; TEMP 98.3; O2SAT 96
[2025-07-12 05:00] VITALS: BP 118/67; PULSE 71; RESP 18; TEMP 97; O2SAT 99
[2025-07-12 09:00] VITALS: BP 122/75; PULSE 67; RESP 17; TEMP 98.2; O2SAT 100
--- NOTE | 2025-07-12 09:33 | DVH ---
Date: 07/12/2025 08:30 AM Examination: XY KUB ABDOMEN SINGLE VIEW History: stool burden Comparison: None TECHNIQUE: Frontal views of the abdomen was obtained. FINDINGS: Bowel gas pattern is unremarkable. The lung bases are unremarkable. No acute osseous abnormality identified. IMPRESSION: Nonobstructive bowel gas pattern. large stool burden
--- NOTE | 2025-07-12 12:09 | DVHPN2 ---
Progress Note Date Seen: Jul 12, 2025 Resident Creating Document: GEN TRAN RESIDENT Medical Necessity Reason Pt with a Central, PICC or Fol: No Subjective Review of Systems 70-year-old male who recently travel to [facility] presents to the ER with a chief complaint of abdominal pain and diarrhea for the past 1 month. Patient recently visited [facility] with his where he was diagnosed with typhoid fever after having abdominal pain. He received some medication but does not remember the name. Patient never has had EGD/colonoscopy. Patient reports eating and trying new food, developed abdominal pain, across the lower abdomen, nonradiating, along with the episodes of diarrhea nonbloody for the past month. He says that his did not try the food and did not get sick. Also reports 12 lb weight loss in the past month. Past medical/surgical history: Anemia Social history: Lives with nina, smokes 3 cigarettes-previously half a pack a day for the past 20 years, drinks socially 07/02-Patient seen and examined. IR consulted for IR guided liver biopsy. 07/03-Patient seen and examined. Had a bowel movement. Denies any abdominal symptoms. 07/04-patient seen and examined, no symptoms. Spoke to [facility], willing to accept on Wednesday for EUS. 07/05 - no acute complaint, had a bm 07/06-no acute complaint. No bowel movement. Reports being constipated. Sounds normal. Lactulose daily 07/10-abdomen soft, nontender normoactive 07/11 - one bowel movement. Tap water enema 07/12 no active complaints. One bowel movement overnight. Objective vital signs Vital Sign Date Time Temp Pulse Resp B/P (MAP) Pulse Ox O2 Delivery O2 Flow Rate FiO2 07/12/25 09:44 122/75 07/12/25 09:00 98.2 67 17 100 98.2 07/12/25 08:15 Room Air* 0 21 Total Intake and Output 07/11/25 07/11/25 07/12/25 15:00 23:00 07:00 Intake Total 50 ml 1400 ml 240 ml Balance 50 ml 1400 ml 240 ml medications Current Medications Medications Dose Ordered Sig/Valery Route Start Time Stop Time Status Last Admin Dose Admin Enoxaparin Sodium 40 mg DAILY SC 07/02/25 10:00 07/12/25 09:43 40 MG Acetaminophen 650 mg Q6HP PRN PO 07/01/25 18:15 07/06/25 16:26 650 MG Nitroglycerin 0.4 mg Q5MINP PRN SL 07/01/25 18:15 Pantoprazole Sodium 40 mg DAILY IV 07/02/25 10:00 07/12/25 09:43 40 MG Allopurinol 100 mg DAILY PO 07/02/25 10:00 07/12/25 09:43 100 MG Atorvastatin Calcium 20 mg DAILY PO 07/02/25 10:00 07/12/25 09:43 20 MG Diagnostic Test (Pha) 1 strip ACHS 07/01/25 22:00 07/12/25 06:18 1 STRIP Insulin Human Regular ACHS SC 07/01/25 22:00 07/11/25 22:03 3 UNITS Dextrose 50 ml UD PRN IV 07/01/25 19:15 Lisinopril 10 mg DAILY PO 07/03/25 10:00 07/12/25 09:44 10 MG Meropenem 50 ml @ 17 mls/hr Q8HR IV 07/03/25 14:00 07/12/25 06:14 17 MLS/HR Ferrous Sulfate 325 mg MWF PO 07/11/25 10:00 07/11/25 09:07 325 MG Acetaminophen/ Hydrocodone Bitart 1 tab Q4HPRN PRN PO 07/11/25 05:45 07/12/25 00:49 1 TAB Examination Patient lying in bed, in no acute distress General: Cachectic, afebrile, palor, mucosae are moist Cardiovascular: Regular S1 and S2. No murmurs, gallops or rubs. No JVD elevation. No pedal edema Respiratory: Normal B/L air entry on room air. Clear lung sounds on auscultation Abdomen: Soft, nontender, nondistended, normoactive bowel sounds, no rebound tenderness, no organomegaly, no masses. Abdomen has multiple chronic dark spots Genitourinary: Deferred MSK/skin: Mobilizes 4 limbs. Skin is dry and warm Neurological: No motor, no sensitive deficits, normal speech. Pupils are isocoric and reactive. Psych/Mental Status: A/Ox3 laboratory and microbiology Laboratory Tests 07/10/25 15:35 Test 07/10/25 15:35 Range/Units Serum Glucose 83 # 74-106 mg/dL Microbiology Date/Time Source Procedure Growth Status 07/05/25 11:35 Stool Stool Culture - Final Complete 07/05/25 11:35 Stool Shiga Toxin I & II - Final Complete 07/01/25 18:39 Blood Blood Culture - Final NO GROWTH AFTER 5 DAYS OF INCUBATION. Complete Labs and/or images reviewed: Labs reviewed by me, Image(s) reviewed by me Problem List/Assessment/Plan Problem List/Assessment/Plan ? Probable Pancreatic adenocarcinoma ? Probable Liver metastasis Acute pancreatitis with peripancreatic fluid collection Anemia likely microcytic Iron-deficiency anemia New onset diabetes mellitus type 2-A1c 8.9 Transaminitis ? Recent history of typhoid fever-recent travel to [facility] CT abdomen with IV contrast shows Significant abnormal pancreatic head mass measuring 3.3 x 3.7 cm most likely compatible with pancreatic adenocarcinoma. Altered perfusion of the liver with question occlusion of the portal confluence close proximity to the pancreatic head mass [LIVER]: Extensive heterogeneous areas of hypoenhancement with extensive oval- shaped hypoattenuating lesion some which demonstrate significant peripheral enhancement highly concerning for metastatic disease. Characteristic lesion in the right inferior hepatic lobe, hepatic segment 5/6 measures 1.7 cm ESR 22 CRP Serum CK 33 CA 19 9 >49,000 AFP pending Plan: Recommendation: Dr. Bhandari H&H stable. No acute symptoms. Per radiologist, given the acute pancreatitis, liver biopsy is a high-risk procedure and to be done as outpatient. Radiologist recommended oncology consultation. Recommend higher level of care for EUS/ERCP, otherwise urgent outpatient follow up with the IR and oncology CA 19-9 >[id number], AFP unremarkable ID consultation-recommended meropenem, recommended pancreatic mass biopsy and consideration of ERCP Spoke to [facility] Dr Ko, willing to accept on Wednesday for EUS. Patient accepted at [facility], pending bed availability Stool WBC negative, stool occult negative Completed IV iron supplementation, continue p.o. MiraLax daily Diet as tolerated Diabetic education Protonix 40 mg p.o. daily Plan discussed with patient, patient's son at bedside in which all questions have been answered Case discussed with Dr. Bhandari Plan discussed with: Patient My Orders My Orders Orders - GEN TRAN Procedure Category Date Status Time Tap Water Enema ORDERS 07/11/25 Transmitted 17:35 Kub Abdomen Single XY 07/12/25 Resulted View 04:00 GEN TRAN Jul 12, 2025 12:09
[2025-07-12 13:00] VITALS: BP 118/72; PULSE 83; RESP 17; TEMP 98.4; O2SAT 97
[2025-07-12 17:00] VITALS: BP 146/87; PULSE 74; RESP 17; TEMP 98.6; O2SAT 100
--- NOTE | 2025-07-12 17:52 | DVHDS2 ---
Discharge Summary Date of Admission Jul 01, 2025 at 18:15 Date of Discharge: Jul 11, 2025 Labs/Diagnostic Data: Laboratory Results Test 07/12/25 05:45 07/10/25 15:35 07/05/25 11:35 07/05/25 11:34 POC Glucose 108 mg/dl (70-106) White Blood Count 8.6 10^3/uL (4.4-10.8) Red Blood Count 4.98 10^6/uL (4.5-5.90) Hemoglobin 10.5 g/dL (13.5-17.5) Hematocrit 31.0 % (41.0-53.0) Mean Corpuscular Volume 62.2 fL (80.0-100.0) Mean Corpuscular Hemoglobin 21.0 pg (28.0-32.0) Mean Corpuscular Hemoglobin Concent 33.7 g/dL (32.0-36.0) Red Cell Distribution Width 16.7 % (11.8-14.3) Platelet Count 292 10^3/uL (140-450) Mean Platelet Volume 7.3 fL (6.9-10.8) Neutrophils (%) (Auto) 58.1 % (37.0-80.0) Lymphocytes (%) (Auto) 27.5 % (10.0-50.0) Monocytes (%) (Auto) 10.6 % (0.0-12.0) Eosinophils (%) (Auto) 2.8 % (0.0-7.0) Basophils (%) (Auto) 1.0 % (0.0-2.0) Neutrophils # (Auto) 5.0 10 ^3/uL (1.6-8.6) Lymphocytes # (Auto) 2.4 10 ^3/uL (0.4-5.4) Monocytes # (Auto) 0.9 10 ^3/uL (0-1.3) Eosinophils # (Auto) 0.2 10 ^3/uL (0-0.8) Basophils # (Auto) 0.1 10 ^3/uL (0-0.2) Nucleated Red Blood Cells 0.3 % Sodium Level 140 mmol/L (136-145) Potassium Level 4.1 mmol/L (3.5-5.1) Chloride Level 103 mmol/L (98-107) Carbon Dioxide Level 30 mmol/L (20-31) Anion Gap 7 (5-15) Blood Urea Nitrogen 8 mg/dL (9-23) Creatinine 0.60 mg/dL (0.700-1.30) Glomerular Filtration Rate Calc 105 mL/min (>90) BUN/Creatinine Ratio 13.3 (10.0-20.0) Serum Glucose 83 mg/dL (74-106) Calcium Level 9.2 mg/dL (8.7-10.4) Total Bilirubin 0.9 mg/dL (0.2-1.0) Aspartate Amino Transferase (AST) 111 U/L (13-40) Alanine Aminotransferase (ALT) 58 U/L (7-40) Alkaline Phosphatase 158 U/L (46-116) Total Protein 6.9 g/dL (5.7-8.2) Albumin 3.8 g/dL (3.2-4.8) Lipase 47 U/L (12-53) Stool Occult Blood Sample #3 Negative (Negative) Stool for White Cells None seen Prothrombin Time 11.2 sec (9.3-11.8) Prothrombin Time INR 1.06 (0.9-1.15) Test 07/03/25 11:02 07/02/25 16:19 07/02/25 16:18 07/02/25 10:00 Reticulocyte Count (auto) 1.89 % (0.5-1.5) Iron Level 59 ug/dL (65-175) Total Iron Binding Capacity 283 ug/dL (250-425) Percent Iron Saturation 20.8 % (20-55) Ferritin 733.5 ng/mL (22-322) Hepatitis A IgM Antibody Negative Hepatitis A Antibody Total Positive (Negative) Hepatitis B Surface Antigen Negative (Negative) Hepatitis B Surface Antibody Negative (Negative) Hepatitis B Core Total Antibody Positive (Negative) Hepatitis B Core IgM Antibody Negative (Negative) Hepatitis C Antibody Negative (Negative) Tumor Marker Alpha Fetoprotein <1.8 ng/mL (0.0-8.4) Erythrocyte Sedimentation Rate 22 mm/hr (0-20) Activated Partial Thromboplast Time 26.6 SEC (24.5-34.5) Creatine Kinase 33 U/L (46-171) C-Reactive Protein High Sensitivity 0.51 mg/dL (<1.0) Carcinoembryonic Antigen 62.95 ng/mL (<=5.0) CA 19-9 Antigen 25506 U/mL (0-35) CA 125 Antigen 281.0 U/mL (Not Estab.) Test 07/01/25 16:02 07/01/25 15:45 Hemoglobin A1c 8.9 % A1C (<5.7) Amylase Level 406 U/L (30-118) Urine Color Dark-yellow (Yellow) Urine Clarity Turbid (Clear) Urine pH 6.0 (5.0-9.0) Urine Specific [place] 1.037 (1.001-1.035) Urine Protein 1+ (Negative) Urine Ketones Trace (Negative) Urine Blood Negative /uL (Negative) Urine Nitrite Negative (Negative) Urine Bilirubin 1+ (Negative) Urine Urobilinogen 3 mg/dL (Negative) Urine Leukocyte Esterase Negative /uL (Negative) Urine RBC 2 /hpf (0 - 3) Urine Microscopic WBC 3 /HPF (0-3) Urine Squamous Epithelial Cells Few /hpf (<5) Urine Bacteria None seen /hpf (None Seen) Urine Hyaline Casts Many /lpf (0 - 2) Urine Mucus Moderate (None Seen) Urine Glucose Trace mg/dL (Normal) Other Laboratory Tests 07/10/25 15:35 Brief Hx & Hospital Course: Moses Garcia is a 70-year-old male with a history of morbid obesity, anemia, hyperlipidemia, and gout presenting to the emergency room with acute abdominal pain and diarrhea for approximately one month following recent travel to [facility]. Patient was admitted on 07/01/2025 for intractable abdominal pain. Patient was recently in [facility]. He was diagnosed with typhoid fever and received treatment in [facility]. Patient now has intractable abdominal pain. He was found to have acute pancreatitis and elevated liver enzymes. CT imaging showed pancreatic head mass with fluid collections around the pancreas and possible occlusion of the portal confluence. Patient also has liver nodule suspicious for metastasis. Patient's CA 199 was elevated at 49,532 AFP was negative. CEA was negative. Patient still having persistent abdominal pain. Patient was seen by GI as well as infectious disease. Patient was started on IV antibiotics, currently on Merrem. Patient has underlying history of diabetes. Hemoglobin A1c is 8.9. Patient most likely has pancreatic cancer with metastasis to the liver. Patient will need higher level of care transferred for EUS and possible stent placement related to possible occlusion of the portal confluence. Unable to do liver biopsy in our facility due to recent acute pancreatitis. Patient will need ongoing oncology evaluation. Patient was transferred to [facility] in stable condition. The patient received proper medical treatment and medications. Vital signs, Imaging and Laboratory Work was monitored daily. All consults recommendations were followed as provided. Patient/Family was counseled about treatment plan, medications, possible side effects, patient verbalized understanding. All questions were answered to the best of my ability. Condition at Discharge: Guarded Final Diagnosis/Problems List PANCREATIC HEAD MASS WITH SURROUNDING FLUID COLLECTION ACUTE PANCREATITIS ELEVATED LIVER ENZYMES ELEVATED CA19-9 POSSIBLE OCCULSION OF THE PORTAL CONFLUENCE LIVER LESIONS SUSPICOUS OF METASTASIS- CONSIDERED HIGH RISK AT OUR FACILITY FOR BX AT THIS TIME MORBID OBESITY ANEMIA HYPERLIPIDEMIA GOUT NEW ONSET TYPE 2 DIABETES Discharge Disposition: Acute Care Facility Discharge Instruct/Medications Diet: Regular Activity: No Restrictions, As Tolerated Follow Up/Referral: EUS POSS STENT POSS LIVER BIOPSY Scheduled Allopurinol (Allopurinol), 1 TAB PO DAILY, (Reported) Allopurinol (Allopurinol), 1 TAB PO DAILY, (Reported) Atorvastatin Calcium (Atorvastatin Calcium), 1 TAB PO DAILY, (Reported) Atorvastatin Calcium (Atorvastatin Calcium), 1 TAB PO DAILY, (Reported) Cetirizine HCl (Cetirizine Hydrochloride), 1 TAB PO DAILY, (Reported) Hctz (Hydrochlorothiazide), 1 TAB PO DAILY, (Reported) Hydrochlorothiazide (Hydrochlorothiazide), 25 MG PO DAILY, (Reported) Omeprazole (Gnp Omeprazole), 1 TAB PO DAILY, (Reported) Zinc Sulfate (Zinc Sulfate), 1 TAB PO DAILY, (Reported) Scheduled PRN Acetaminophen (Acetaminophen), 325 MG PO Q4HP PRN for MILD PAIN, (Reported) Miscellaneous Medications Acetaminophen (Acetaminophen Extra Stren), PO, (Reported) Discharge Statement: "Patient was advised to return to the ER or call 911 if any headaches, dizziness, shortness of breath, chest pain, abdominal pain, bleeding, fevers, or worsening of medical condition. Patient was counseled about treatment plan, medications, possible side effects, patientverbalized understanding. All questions were answered to the best of my ability. This discharge took greater then 30 minutes in planning, reviewing documentation, counseling the patient, and discussing with other team members." ASSESSMENT ASSESSMENT Assessment PANCREATIC HEAD MASS WITH SURROUNDING FLUID COLLECTION ACUTE PANCREATITIS ELEVATED LIVER ENZYMES ELEVATED CA19-9 POSSIBLE OCCULSION OF THE PORTAL CONFLUENCE LIVER LESIONS SUSPICOUS OF METASTASIS- CONSIDERED HIGH RISK AT OUR FACILITY FOR BX AT THIS TIME SIMONA FRANKLIN NP Jul 12, 2025 17:52
--- NOTE | 2025-07-13 21:56 | DVHPN2 ---
Consult Progress Note Objective vital signs Vital Sign Date Time Temp Pulse Resp B/P (MAP) Pulse Ox O2 Delivery O2 Flow Rate FiO2 07/12/25 17:00 98.6 74 17 146/87 (106) 100 98.6 07/12/25 08:15 Room Air* 0 21 Total Intake and Output 07/12/25 07/12/25 07/13/25 15:00 23:00 07:00 Intake Total 50 ml 750 ml Balance 50 ml 750 ml laboratory and microbiology Laboratory Tests 07/10/25 15:35 Test 07/10/25 15:35 Range/Units Serum Glucose 83 # 74-106 mg/dL Problem List/Assessment/Plan Problem List/Assessment/Plan ASSESSMENT AND PLAN: ID Problem List: -Acute pancreatitis -Pancreatic head mass (CT suggests probable pancreatic adenocarcinoma) -Extensive hepatic lesions suspicious for metastases; ascites -Large multiloculated peripancreatic fluid collection (tail) 6.6 cm; possible infected peripancreatic fluid collection -Diarrhea x ~1 month -Recent travel to [facility] without prior vaccinations -Morbid obesity -Anemia -Hyperlipidemia -Gout Assessment This is a 70 y.o. male with morbid obesity, anemia, hyperlipidemia, and gout presenting with 1 month of acute abdominal pain and diarrhea after recent travel to [facility] (no prior vaccinations). On arrival he had a mildly distended abdomen with diffuse tenderness. Initial labs notable for WBC ~9.8, Hgb 12.4, Plt 254; UA without pyuria; lipase 86; creatinine 1.02; BUN 9. Subsequent labs in transcript are internally inconsistent: WBC 9.4; hemoglobin is 4.4; decreased to 10.6; platelets 224. CT A/P (non-contrast) showed acute pancreatitis with a 6.6 cm multiloculated collection adjacent to the pancreatic tail and small-volume ascites. Contrast CT showed a pancreatic head mass (~3.3 ~3.0 cm; second dimension partially unclear in transcript) most compatible with pancreatic adenocarcinoma; altered liver perfusion with questionable occlusion of the portal confluence near the mass; extensive peripancreatic fluid collections with enhancement possibly compatible with infected collection; and multiple hepatic lesions with peripheral enhancement highly concerning for metastatic disease. Blood cultures reported as no growth to date in the transcript. 07/04: stool culture negative 07/10: persistent loose stools somewhat improved Plan: -- defer to GI team for any pancreatic enzymes to assist w/ diarrhea -- check stool O&P x 3 and strongyloides \-- continue meropenem empirically for possible infected/necrotic peripancreatic fluid collection in the setting of acute inflammation; \-- GI consultation for tissue diagnosis of pancreatic mass (biopsy) and consideration of ERCP, consider/agree with HLOC \-- Follow up blood cultures (no growth to date per transcript) and any additional cultures \-- Given recent travel and ongoing diarrhea, send stool studies (culture and additional pathogen testing as indicated) to evaluate for coexisting infectious diarrhea; clinical suspicion currently low per transcript \-- Defer comprehensive management of acute pancreatitis and abdominal pain to the primary team \-- Medication reconciliation: patient reports no home medications \-- Allergies: no known drug allergies Isolation Precautions: standard Assessment and plan was discussed with the patient as written above Plan is subject to change pending incorporation of new incoming information/diagnostics. Updates may be added as addendum at the bottom (OR TOP) of this note Thank you for interesting consult. ID will continue to follow. Please contact Infectious Disease for any questions or concerns. Prema Mckeon M.D. [facility] Ph: ? Teams text: [email or web address] _ _ Physical Exam: General: NAD Neck: Supple. No masses. HEENT: PERRL. Normal lids and conjunctiva. Moist mucous membranes. Oropharynx without lesions, exudates or excessive erythema. Normal appearance of the external aspects of the nose and ears. Heart: Regular rhythm, normal rate. No murmur. No lower extremity edema. Lungs: Normal respiratory effort. Clear to auscultation bilaterally. No wheezes. No crackles. Abdomen: Soft. Mildly distended. Diffusely tender to palpation. No masses or abdominal hernia noted in transcript. Msk: No digital cyanosis. Normal strength and tone in all 4 limbs. Skin: Warm and dry, no rashes. Neuro: Alert. No facial droop or slurred speech. Extra-ocular movements intact. Sensation intact to soft touch in all 4 limbs. Psych: Appropriate mood. Full affect. Oriented to person, place, time, and situation. PREMA MCKEON MD Jul 13, 2025 21:56
== END 2025-07-12 20:03 | disposition short-term general hospital (02) | DRG 439 ==
LOC: ER 14:28 → OVERFLOW 18:15 → MERGE 18:15 → WEST WING 07-02 14:54
PROVIDERS: ADMIT Nurse Practitioner; ATTEND Nurse Practitioner
DX: K85.90 Acute pancreatitis without necrosis or infection, unspecified (principal); C25.9 Malignant neoplasm of pancreas, unspecified; C78.7 Secondary malignant neoplasm of liver and intrahepatic bile duct; R18.8 Other ascites; D50.9 Iron deficiency anemia, unspecified; E11.9 Type 2 diabetes mellitus without complications; E66.01 Morbid (severe) obesity due to excess calories; K86.2 Cyst of pancreas; Z68.1 Body mass index [BMI] 19.9 or less, adult; E78.5 Hyperlipidemia, unspecified; M10.9 Gout, unspecified; R74.01 Elevation of levels of liver transaminase levels; Z79.899 Other long term (current) drug therapy; Z87.891 Personal history of nicotine dependence
CPT/HCPCS: 36415; 74018; 74176; 74177; 74181; 80053; 80074; 81001; 82105; 82150; 82270; 82378; 82550; 82728; 82962; 83036; 83540; 83550; 83690; 85025; 85045; 85048; 85610; 85652; 85730; 86141; 86301; 86304; 86704; 86706; 86708; 86803; 87040; 87045; 87177; 87340; 87427; 96374; 99291; G0378; J1756; J1815; J2185; J2405; J2470